=== PATIENT | female | born 1965 | race Caucasian/White ===

== ENCOUNTER 2016-07-02 11:00 | Inpatient (IN) | payer OTHER ==
[~2016-07-02] VITALS: Ht 172.7 cm; Wt 74.8 kg
[~2016-07-02 11:00] MED LIST: CLEOCIN HCL300 MG PO; DELTASONE20 MG PO; GUAIFENESIN-COD10 ML PO; HYDROCODONE/ACE1 TA1 PO; PROVENTIL HFA6.7 GM INH; VICODIN 300 MG-1 TAB PO; ZITHROMAX Z-PA250 M1 PO; ZITHROMAX250 M2 PO
--- NOTE | 2016-07-02 11:21 | NUR ---
C/I SOB WITH COUGH, CHEST TIGHTNESS X 2 DAYS. O2 SAT 90% IN TRIAGE. EKG DONE OAN ARRIVAL. 1 PACK PER DAY SMOKER.
--- NOTE | 2016-07-02 11:23 | ED CARDIAC/CP/PALPITATIONS ---
See Addendum History of Present Illness General Chief Complaint: Dyspnea (COPD, CHF, Other) Stated Complaint: SOB HX OF ASTHMA Source: patient Exam Limitations: no limitations Reconcile Medications Albuterol Sulfate (Proventil Hfa) 6.7 GM HFA.AER.AD 1-2 PUFF INH Q6P PRN SOB Azithromycin (Zithromax) 250 MG TABLET 1 DP PO AD BRONCHITIS 2 the first day followed by 1 for days 2-5 Azithromycin (Zithromax Z-Hermes) 250 MG CAP 1 DP PO AD DENTAL PAIN 2 the first day followed by 1 for days 2-5 HYDROCODONE/ACETAMINOPHEN (Hydrocodon-Acetaminophen 5-325) 1 EACH TABLET 1 TAB PO Q6HR PRN BREAKTHROUGH PAIN Prednisone (Deltasone) 20 MG TABLET 3 TAB PO DAILY BRONCHITIS Robitussin AC (Guaifenesin-Codeine Syrup) 10 ML LIQUID 5-10 ML PO Q6P PRN COUGH Triage Note: C/I SOB WITH COUGH, CHEST TIGHTNESS X 2 DAYS. O2 SAT 90% IN TRIAGE. EKG DONE OAN ARRIVAL. Triage Nurses Notes Reviewed? yes Onset: Gradual Duration: constant Timing: recent history Quality/Severity: severe Radiation: no radiation HPI: Patient is a 50-year-old female with a past medical history of asthma who is a current every day smoker who presents emergency room with a 2 to three-day history of worsening wheezing shortness of breath pruritic chest pain cough and generalized weakness and fatigue. Patient has taken many nebulizer treatments at home and inhalers at home with minimal relief of symptoms. Positive sick contacts at home. Denies any chest pain or pain jaw pain nausea vomiting leg swelling hemoptysis (KARLA ROMAN,SAPNA) Vital Signs & Intake/Output Vital Signs & Intake/Output Vital Signs Date Time Temp Pulse Resp B/P Pulse O2 O2 Flow FiO2 Ox Delivery Rate 07/02 1343 88 18 123/67 92 Nasal 2.0L Cannula 07/02 1343 88 Room Air 07/02 1225 89 07/02 1120 99.0 126 34 122/76 90 Room Air Allergies Coded Allergies: Penicillins (Intermediate, RASH 07/02/16) (JIMENA LOZANO,JOCELYNE Moeller) Past History Travel History Traveled to [place] past 21 day No Medical History Any Pertinent Medical History? 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 No (SAPNA SALGADO) Review of Systems Review of Systems Constitutional: Reports: see HPI. EENTM: Reports: no symptoms. Respiratory: Reports: see HPI, cough, short of breath. Cardiovascular: Reports: no symptoms. GI: Reports: no symptoms. Genitourinary: Reports: no symptoms. Musculoskeletal: Reports: no symptoms. Skin: Reports: no symptoms. Neurological/Psychological: Reports: no symptoms. Hematologic/Endocrine: Reports: no symptoms. Immunologic/Allergic: Reports: no symptoms. All Other Systems: Reviewed and Negative (SAPNA SALGADO) Physical Exam Physical Exam General Appearance: no apparent distress, alert, comfortable Cardiovascular: tachycardia Comments: Well-developed well-nourished person in no acute distress HEENT: Normal EENT exam, extraocular motion intact, no nystagmus. Pupils equally round and reactive to light and accommodation. Nose is atraumatic. External auditory canal and Tympanic membranes clear. Pharynx normal. No swelling or edema. Neck: Supple, no lymphadenopathy, normal range of motion without pain or tenderness Back: Nontender, no CVA tenderness. Cardiovascular: Regular rate and rhythms no murmurs rubs or gallops, normal JVP Respiratory: Chest nontender. No respiratory distress. Bilateral wheezing noted Abdomen: Soft, nontender nondistended, no appreciable organomegaly. Normal bowel sounds. No ascites Extremity: No edema, no calf tenderness to palpation, normal and equal pulses. Neuro: Alert oriented x3, motor sensory normal, Skin: No appreciable rash on exposed skin, skin is warm and dry. Psych: Mood and affect is normal, memory and judgment is normal. Core Measures ACS in differential dx? No Severe Sepsis Present: No Septic Shock Present: No (SAPNA SALGADO) Progress Differential Diagnosis: AMI, aortic dissection, atrial fibrillation, cholecystitis, CHF/pulm edema, costochondritis, hyperkalemia, hypovolemia, hyperthyroid, hyperventilation, intracranial hemorrhage, musculoskeletal pain, myocarditis, pancreatitis, pericarditis, pneumonia, pneumothorax, PSVT, pulmonary embolism, PUD/GERD, PVCs/PACs, respiratory failure, rib fracture, sepsis, unstable angina, V-fib/V-Tach, WPW syndrome Diagnostic Imaging: Viewed by Me: Radiology Read. CXR Impression: SEE COMMENTS Initial ED EKG: SINUS TACHYCARDIA [address] DEPRESSIONS NOTED IN v3 AND v4 v5 v6 Comments: PATIENT: MEAGHAN VELASQUEZ PRESENT AGE: 50 PATIENT ACCOUNT NO: [id number] : 65 LOCATION: [facility] ORDERING PHYSICIAN: SAPNA ROMAN SERVICE DATE: 07/02/16-113 EXAM TYPE: RAD - XRY-CHEST XRAY, PA AND LATERAL EXAMINATION: XR CHEST CLINICAL INFORMATION: Cough and wheeze COMPARISON: 11/20/2015 TECHNIQUE: PA and lateral views of the chest were obtained. FINDINGS: The lungs are well expanded. Bronchial wall thickening is present. There is no focal consolidation, edema, or effusion. No pneumothorax. The cardiomediastinal silhouette is within normal limits. No acute osseous abnormality. IMPRESSION: No dense consolidation. Bronchial wall thickening can be seen with a small airways process such as asthma or atypical/viral infection. (KARLA ROMAN,SAPNA) Plan of Care: Orders Procedure Date/time Status AEROSOL (GEN) 07/02 1225 Complete Telemetry/Oncology Social Work 07/02 1126 Active THYROID STIMULATING HORMONE 07/02 1126 Complete TROPONIN LEVEL 07/02 1126 Complete MAGNESIUM 07/02 1126 Complete HUMAN BETA HCG SCREEN 07/02 1126 Complete FREE T4 07/02 1126 Complete D-DIMER 07/02 1126 Complete COMPREHENSIVE METABOLIC PANEL 07/02 1126 Complete CBC WITHOUT DIFFERENTIAL 07/02 112 Complete EKG 07/02 1102 Active Laboratory Tests 07/02/16 1138: Total Beta HCG Cancelled 07/02/16 1126: Anion Gap 17 H, Estimated GFR > 60, BUN/Creatinine Ratio 8.9, Glucose 118 H, Calcium 9.6, Magnesium 2.0, Total Bilirubin 0.8, AST 21, ALT 40, Alkaline Phosphatase 98, Troponin I < 0.01, Total Protein 7.9, Albumin 4.6, Globulin 3.3, Albumin/Globulin Ratio 1.4, TSH 1.100, Free T4 1.11, Total Beta HCG NEGATIVE, D- Dimer < 200, CBC w Diff NO MAN DIFF REQ, RBC 5.74 H, MCV 87.1, MCH 29.2, RDW 13.8, MPV 8.8, Gran % 74.6, Lymphocytes % 10.2 L, Monocytes % 11.8 H, Eosinophils % 1.8, Basophils % 1.6, Absolute Granulocytes 7.0 H, Absolute Lymphocytes 1.0 L, Absolute Monocytes 1.1 H, Absolute Eosinophils 0.2, Absolute Basophils 0.2, PUBS MCHC 33.6 Upon initial examination patient was in no respiratory distress however patient has significant bilateral wheezing on exam. Patient received nebulized treatment at home and inhaler treatments at home with minimal relief of symptoms. Patient was immediately administered IV Solu-Medrol, IV negative serum and multiple nebulizer treatments with no relief of wheezing patient at rest in bed was noted to be 88% room air. Patient was given supplemental nasal cannula oxygenation which improved her saturation to 94%. Patient had negative d-dimer essentially ruling out pulmonary embolism chest x-ray confirmed concerns of reactive airway disease. Troponin negative. At this time I am concerned of patient's unresolved symptoms and significant wheezing with above medications and advised patient to be admitted. Discussed admission with Dr. Narayan who is aware of admission for telemetry (SAPNA SALGADO) Departure Departure Disposition: STILL A PATIENT Condition: Stable Clinical Impression Primary Impression: Asthma Secondary Impressions: ST segment depression Referrals: UNKNOWN (PCP/Family) Departure Forms: Customer Survey General Discharge Information Admission Note Spoke With: PANCHITO LOZANO,SHITAL Documentation of Exam: Documentation of any treatments & extenuating circumstances including Concerns Regarding Discharge (functional status, medication knowledge or non-compliance, living conditions, etc.) that warrant an admission rather than observation: [ Discussed patient with Dr. FLANAGAN who agrees with telemetry admission for concerns of ST depression pleuritic chest pain and no relief of asthma and wheezing with medications administered in the emergency room. Patient at rest had a oxygen saturation of 88%. Patient will require repeat labs, IV Solu- Medrol, repeat nebulizer treatments and cardiology consultation. Outpatient treatment at this time would be medically harmful.] (SAPNA SALGADO) PA/TRIAL CONSULTANT Co-Sign Statement Statement: ED Attending supervision documentation- [x] I saw and evaluated the patient. I have also reviewed all the pertinent lab results and diagnostic results. I agree with the findings and the plan of care as documented in the PA's/TRIAL CONSULTANT's documentation. [] I have reviewed the ED Record and agree with the PA's/TRIAL CONSULTANT's documentation. [] Additions or exceptions (if any) to the PAs/TRIAL CONSULTANT's note and plan are summarized below: [] (JIMENA LOZANO,JOCELYNE Moeller) Critical Care Note Critical Care Note Critical Care Time: 30-74 min (SAPNA SALGADO)
--- NOTE | 2016-07-02 11:29 | NUR ---
APPRECIATE TRIAGE NOTE. PT TO [facility] G. PA STUDENT TO BEDSIDE FOR EVAL.
[2016-07-02 11:45] LABS: ABSOLUTE BASOPHIL COUNT 0.2 /CUMM (0.0-0.2); ABSOLUTE EOSINOPHIL COUNT 0.2 /CUMM (0.0-0.7); ABSOLUTE MONOCYTE COUNT 1.1 /CUMM (0.10-0.60); BASOPHIL % 1.6 % (0.0-2.0); EOSINOPHIL % 1.8 % (0-5); GRANULOCYTE % 74.6 % (42.2-75.2); MEAN CORPUSCULAR HGB 29.2 PG (27.0-31.0); MEAN CORPUSCULAR HGB CONC 33.6 G/DL (33.0-37.0); MEAN CORPUSCULAR VOLUME 87.1 FL (81.0-99.0); MEAN PLATELET VOLUME 8.8 FL (7.4-10.4); PLATELET COUNT 258 /CUMM (130-400); RBC DISTRIBUTION WIDTH 13.8 % (11.5-14.5); RED BLOOD CELL CT 5.74 /CUMM (4.20-5.40); WHITE BLOOD CELL COUNT 9.4 /CUMM (4.8-10.8)
--- NOTE | 2016-07-02 11:50 | NUR ---
ABEL ACOSTA TO BEDSIDE FOR EVAL.
--- NOTE | 2016-07-02 11:57 | NUR ---
PT TO RADIOLOGY FOR X-RAY AT THIS TIME.
--- NOTE | 2016-07-02 12:14 | RADIOLOGY REPORT ---
EXAMINATION: XR CHEST CLINICAL INFORMATION: Cough and wheeze COMPARISON: 11/20/2015 TECHNIQUE: PA and lateral views of the chest were obtained. FINDINGS: The lungs are well expanded. Bronchial wall thickening is present. There is no focal consolidation, edema, or effusion. No pneumothorax. The cardiomediastinal silhouette is within normal limits. No acute osseous abnormality. IMPRESSION: No dense consolidation. Bronchial wall thickening can be seen with a small airways process such as asthma or atypical/viral infection.
--- NOTE | 2016-07-02 12:30 | NUR ---
20G IV PLACED IN RIGHT WRIST. FLUSHED PER PROTOCOL. NO SWELLING, REDNESS, PAIN, OR BLEEDING PRESENT. NS BOLUS INFUSING, MAG SULFATE INFUSING ON PUMP, AND SOLUMEDROL ADMINISTERED PER EMAR. PT. TOLERATED PROCEDURE WELL. RESPIRATORY THERAPIST AT BEDSIDE TO DO TREATMENT. NO ACUTE DISTRESS NOTED AT THIS TIME. WILL CONTINUE TO MONITOR.
--- NOTE | 2016-07-02 12:36 | NUR ---
RESPIRATORY TO BEDSIDE FOR DUONEB AT THIS TIME.
--- NOTE | 2016-07-02 13:13 | NUR ---
PT AMBULATORY TO BATHROOM PT NOTED GET SOB QUICKLY. PT IN TRIPOD POSITION ON STRETCHER USING PURSED LIP BREATHING. LUNS SOUNDS NOTED TO BE COURSE WITH EXPIRATORY WHEEZE. ABEL ACOSTA TO BEDSIDE TO DISCUSS POC WITH PT.
--- NOTE | 2016-07-02 13:30 | NUR ---
PT MOVED TO ROOM 19 FOR OXYGEN SUPPLEMENTATION. PT PLACED ON 2L NC FOR 02 SAT 88% ON RA. PT IMPROVED TO 94% WITH NC 2L.
--- NOTE | 2016-07-02 13:52 | History & Physical ---
KARLEE LOZANO,REGINA 07/02/16 1351: General Information and HPI MD Statement: I have seen and personally examined MEAGHAN VELASQUEZ and documented this H&P. The patient is a 50 year old F who presented with cough and shortness of breath. Source of Information: patient Exam Limitations: no limitations History of Present Illness: 50 yo F with pmh of asthma and nicotine dependence (current heavy smoker 41-pack -year history), came into the emergency department with complaints of productive cough, shortness of breath. According to patient she was in her usual state of health 2 weeks ago, when she started having achiness and generalized muscle and joint pain, and later started having congestion, and cough, productive with yellowish sputum (half a cup), associated with shortness of breath. The symptoms have worsened significantly requiring her to show up in the emergency department. She also mentioned that she used to have similar episodes at least twice a year but never required hospitalization. She admitted to having pain deep breathing, and upon swallowing. She denies chest pain, palpitation, fever, chills, night sweats, headache, nasal discharge, ear discharge, ear pain, and abdomen, burning urination, change in bowel or bladder habit, leg swelling. She also denied any recent travel or any sick contacts. She mentioned that she has a pet parrot in her home. 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 She does not have a PCP or webbing supervisor to follow. Allergies/Medications Allergies: Coded Allergies: Penicillins (Intermediate, RASH 07/02/16) Home Med list Albuterol Sulfate (Proventil Hfa) 6.7 GM HFA.AER.AD 1-2 PUFF INH Q6P PRN SOB Olanzapine 10 MG TABLET 1 TAB PO QPM DEPRESSION (Reported) Past History Travel History Traveled to [place] past 21 day No Medical History Neurological: NONE EENT: NONE Cardiovascular: NONE Respiratory: asthma Gastrointestinal: NONE Hepatic: NONE Renal: NONE Musculoskeletal: NONE Psychiatric: NONE Endocrine: NONE Blood Disorders: NONE Cancer(s): NONE AGENT BROKER/Reproductive: NONE Surgical History Surgical History: non-contributory Past Family/Social History Psychosocial History Where do you live? Home Who Do You Live With? spouse Primary Language: South African Smoking Status: Current Everyday Smoker ETOH Use: quit 15 yrs ago Illicit Drug Use: denies illicit drug use Functional Ability ADLs Independent: dressing, eating, toileting, bathing. Ambulation: independent IADLs Independent: shopping, housework, finances, food prep, telephone, transportation , medication admin. Review of Systems Review of Systems Constitutional: Reports: see HPI, malaise, weakness. Denies: chills, diaphoresis, fever, unexplained weight loss. EENTM: Reports: no symptoms, throat pain. Cardiovascular: Reports: chest pain (on deep breathing). Denies: edema, palpitations, peripheral edema, syncope. Respiratory: Reports: cough, orthopnea, short of breath, sputum production. Denies: hemoptysis, stridor, wheezing. GI: Reports: no symptoms. Genitourinary: Reports: no symptoms. Musculoskeletal: Reports: see HPI, back pain, joint pain, muscle pain. Skin: Reports: no symptoms. Neurological/Psychological: Reports: no symptoms. Hematologic/Endocrine: Reports: no symptoms. All Other Systems: Reviewed and Negative Post Menopausal: Yes Exam & Diagnostic Data Last 24 Hrs of Vital Signs/I&O Vital Signs Date Time Temp Pulse Resp B/P Pulse O2 O2 Flow FiO2 Ox Delivery Rate 07/02 1343 88 18 123/67 92 Nasal 2.0L Cannula 07/02 1343 88 Room Air 07/02 1225 89 07/02 1120 99.0 126 34 122/76 90 Room Air Intake & Output 07/02 1600 07/02 0800 07/02 0000 Intake Total 1100 Output Total Balance 1100 Intake, IV 1100 Patient 74.843 kg Weight Last 24 Hrs of Labs/Kameron: Laboratory Tests 07/02/16 1138: Total Beta HCG Cancelled 07/02/16 1126: Anion Gap 17 H, Estimated GFR > 60, BUN/Creatinine Ratio 8.9, Glucose 118 H, Calcium 9.6, Magnesium 2.0, Total Bilirubin 0.8, AST 21, ALT 40, Alkaline Phosphatase 98, Troponin I < 0.01, Total Protein 7.9, Albumin 4.6, Globulin 3.3, Albumin/Globulin Ratio 1.4, TSH 1.100, Free T4 1.11, Total Beta HCG NEGATIVE, D- Dimer < 200, CBC w Diff NO MAN DIFF REQ, RBC 5.74 H, MCV 87.1, MCH 29.2, RDW 13.8, MPV 8.8, Gran % 74.6, Lymphocytes % 10.2 L, Monocytes % 11.8 H, Eosinophils % 1.8, Basophils % 1.6, Absolute Granulocytes 7.0 H, Absolute Lymphocytes 1.0 L, Absolute Monocytes 1.1 H, Absolute Eosinophils 0.2, Absolute Basophils 0.2, PUBS MCHC 33.6 Microbiology 07/02 1439 LOWER RESP: Respiratory Culture - COLB 07/02 1438 LOWER RESP: Gram Stain - COLB Diagnostic Data EKG Results Sinus tachycardia with rate 108, ST depression seen at V3 V4 V5 not sure whether this is new or old. No previous EKGs to compare to. Of note, she has slurring of QRS complex towards the end in leads II, III, aVF. 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 (But delta waves can come and go in WPW syndrome depending on other factors too.) CXR Results Chest x-ray shows right a similar obesity and right apex density, system of either developing pneumonia or atelectasis. Also pneumothorax could not be ruled out according to the report. Other Results Physical examnination: General: well nourished patient in mild distress Head: Normocephalic, atraumatic Eyes: Pupils normal in size, regular, reacting to light and accommodation, EOM normal Ears: B/l normal on inspection Nose: Congested on inspection Throat/mouth: Moist mucosa Neck: Supple, full range of motion, no thyromegaly Heart: Regular rate, regular rhythm Lung: Bilateral expiratory wheezes, no crackles, has additional oxygen being delivered by nasal cannula Abd: Soft, non-tender, no distention appreciated Back: Normal range of motion Extremities: Normal knee exam bilaterally, pedal edema, Distal neurovascular intact Neurologic: Alert, oriented x3, Cranial exam grossly intact, Speech is clear and coherent Skin: Warm and dry Psychiatric: Calm, cooperative, coherant Assessment/Plan Assessment: 50 yo F with pmh of asthma and nicotine dependence (current heavy smoker 41-pack -year history), came into the emergency department with complaints of productive cough, shortness of breath. She is currently being evaluated and managed in the telemetry floor for the following issues: #Acute hypoxic respiratory failure, probably secondary to acute on chronic bronchitis The patient gives a typical history of a prodormal symptoms with maybe a possible viral infection which seems to be later progressing towards bronchitis. With cough, increased sputum production, the diagnosis points towards acute bronchitis. However, shortness of breath component is also there which hints towards pulmonary process, likely acute exacerbation of undiagnosed COPD. -Continue supplemental oxygen via nasal cannula to maintain oxygen saturation above 92% -IV antibiotics to cover bronchitis -IV steroids, total respiratory care with nebulization, for the respiratory symptoms -Currently, she does not fit the clinical definition of chronic bronchitis, but will however need pulmonary evaluation and lung function test as an outpatient to diagnose or rule out COPD -Since she mentioned that she has a pet parrot, psittacosis is also in one of the differential diagnosis currently -Follow-up blood cultures and sputum cultures -Follow-up in rapid influenza test, urine Legionella and Streptococcus test -Can consider pulmonary consultation if patient's symptoms does not improve despite current treatment plan #History of asthma Currently, the symptoms that she describes fits more to chronic bronchitis, versus asthma. She never has had already function test to differentiate among these two. She takes Proventil every day (even if she does not have any symptoms) and says that she has not had any asthma attacks during the overnight for a long period of time. -Currently being managed as outlined above -Needs an outpatient pulmonary consultation and a pulmonary function test #? History of Tjdlq-Pbahkqfuu-Zjpfr syndrome Patient mentioned that she has history of Cgvof-Pqdoumcgi-Yxamt syndrome, which was diagnosed 20 years ago, but has not had any ablative procedures, as he does not have any webbing supervisor or PCP. (She visits [facility] as care for her mental health issues). -PLEASE DO NOT GIVE ANY AV-VENTURA BLOCKING AGENT, EVEN IF TACHYCARDIAC, due to WPW SYNDROME. #Depression -Continue taking home medication Zyprexa #Nicotine dependence -Patient will require a nicotine patch. Smoking seizures and counseling should be done in the morning. #Diet: Regular diet #Lovenox for DVT prophylaxis #CODE STATUS: Full code As Ranked By This Provider Problem List: 1. Bronchitis 2. Asthma 3. Depression 4. Nicotine dependence Core Measures/Miscellaneous Acute Coronary Syndrome ACS Diagnosis: No Cerebrovascular Accident CVA/TIA Diagnosis: No Congestive Heart Failure CHF Diagnosis: No Venous Thromboembolism VTE Risk Factors: Age > 40, Smoking VTE Prophylaxis Ordered Inpt: Pharm- Lovenox No Mech VTE prophylaxis d/t: No contraindications No VTE Pharm Prophylaxis d/t: No contraindications VTE Diagnosis: No VTE Type: NONE VTE Confirmed by (Test): NONE Severe Sepsis Severe Sepsis Present: No Septic Shock Septic Shock Present: No Miscellaneous Documentation Attending Case Discussed With: NIR LOZANO,TAI Butler Primary Care Physician: UNKNOWN Patient sees these Specialists Internal medicine Level of Patient Care: Telemetry REMBERTO MA MD 07/02/16 1540: Resident Review Statement Resident Statement: examined this patient, discussed with senior internal auditor, agreed with senior internal auditor, discussed with family, reviewed EMR data (avail) Other Findings: 50-year-old female with past medical history of asthma, depression, current smoker presents to the ED with complaints of 2-3 days of worsening shortness of breath and productive cough with generalized weakness and fatigue. Patient reports her symptoms started with body pains about 5 days ago eventually developed cough. She was producing copious amount of yellow phlegm. Denies fever, chills, sick contacts . Never had a flu shot or pneumonia shot the past. Patient has a [employer] pet parrot for over 35 years. She has it inside her house and she primarily cleans the cage. Vitals and admission blood pressure 122/76, respiration 34, pulse 126, temperature 99.0, oxygen saturation 90% on room air. On examination patient alert awake oriented, comfortable HEENT: Pupils equal and reactive, no erythema noted on the posterior pharyngeal wall. Cardio vascular: S1, S2 regular no murmurs Respiratory: Bilateral inspiratory and expiratory wheezing present Abdomen: Soft, nontender Extremities: No pedal edema Labs an admission WBC 9.4, H&H 16.8 and 50.0, platelet 258, sodium 141, edition 4.0, BUN 8, creatinine 0.9, troponins less than 0.01 X-ray showed bronchial wall thickening EKG showed sinus tachycardia with diffuse ST segment depression Assessment and plan 1. Acute hypoxic respiratory failure most likely due to undiagnosed COPD exacerbation. We'll start her on IV Solu-Medrol and azithromycin. No evidence of infection at this time. We'll keep her on NovoLog sliding scale she is on steroids. Will hold off on antibiotics pending sputum culture. TRC nebulizes. She does not fit the criteria for low-dose CT scan as she is less than 65. But she will need an outpatient lung function test and a pulmonary referral for further follow-up on her COPD. She will also been need to be started on steroids/laba, albuterol inhalers and as well as nebulizes. If her symptoms does not improve Psitacosis should be considered given her exposure to birds. 2. Shortness of breath on mild exertion: Patient does not have a history of coronary disease but she has risk factors including smoking. 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 She has been asymptomatic since then and has never seen a webbing supervisor. We will obtain an echocardiogram and obtain a nonemergent cardiology consult in a.m. Avoid AV ventura blocking agents given the history of WPW syndrome 3. Depression: We will continue her Zyprexa 4. Smoker: We'll start a nicotine patch. Will need reinforcement of smoking cessation. Full CODE STATUS DVT prophylaxis Lovenox regular diet NIR LOZANO,TAI 07/02/16 1644: Attending MD Review Statement Attending Statement Attending MD Statement: examined this patient, discuss w/resident/PA/EMPLOYEE'S REPRESENTATIVE, agreed w/resident/PA/EMPLOYEE'S REPRESENTATIVE, reviewed EMR data (avail), discussed with nursing Attending Assessment/Plan: 50-year-old female with past medical history of childhood asthma managed on Proventil inhaler alone. Doesn't have a proper PCP and get some medical care from [facility]. Also tobacco use since bufferer. She is here with what appears to be an acute asthma/COPD exacerbation. She is wheezing and coughing. I believe because of the long-standing history of tobacco that this is COPD. We 'll treat her with IV steroids, short course of by mouth antibiotics for bacterial bronchitis, TRC with nebs and inhaled bronchodilators. She has a history of WPW with some nonspecific ST depression on her EKG. Her initial troponin is negative. We'll get an echocardiogram, cardiology eval, follow repeat troponins and avoid all AV ventura blocking drugs for now. DVT prophylaxis. Gentle hydration for mild anion gap acidosis and follow-up.
--- NOTE | 2016-07-02 15:10 | NUR ---
FOOD TRAY ORDERED
[2016-07-02] MEDS ORDERED: OLANZAPINE10 M1 PO (15:33)
--- NOTE | 2016-07-02 15:49 | NUR ---
REPORT GIVEN TO MARGO OLMSTEAD.
--- NOTE | 2016-07-02 17:47 | NUR ---
NURSING NOTE ADMINISTERED IV ZITHRO. PT IS GETTING HUNGRY AND IS AWAITING DINNER.
--- NOTE | 2016-07-02 20:08 | NUR ---
RESP THERAPIST PAGED FOR JAY
[2016-07-02 22:17] VITALS: BP 114/61
--- NOTE | 2016-07-02 23:01 | NUR ---
PT ALERT AND ORIENTED X 3. POX- 93 ON 5 L. EXPIRATORY WHEEZES THROUGHOUT. TRCS ORDERED. VSS OTHERWISE. NO C/O PAIN.
--- NOTE | 2016-07-02 23:16 | NUR ---
PT MEDICATED W/ GAUFENISIN ORDERED.
--- NOTE | 2016-07-03 03:54 | NUR ---
OCCASIONALLY COUGHING IN SLEEP NO DISTRESS O2 SAT REMAINS WNL MONITOR SINUS
[2016-07-03 05:30] LABS: ABSOLUTE BASOPHIL COUNT 0 /CUMM (0.0-0.2); ABSOLUTE EOSINOPHIL COUNT 0 /CUMM (0.0-0.7); ABSOLUTE LYMPH COUNT 0.8 /CUMM (1.2-3.4); ABSOLUTE MONOCYTE COUNT 0.2 /CUMM (0.10-0.60); BASOPHIL % 0.7 % (0.0-2.0); EOSINOPHIL % 0.1 % (0-5); GRANULOCYTE % 85.7 % (42.2-75.2); MEAN CORPUSCULAR HGB 29.2 PG (27.0-31.0); MEAN CORPUSCULAR HGB CONC 33.5 G/DL (33.0-37.0); MEAN CORPUSCULAR VOLUME 87.3 FL (81.0-99.0); MEAN PLATELET VOLUME 9.2 FL (7.4-10.4); PLATELET COUNT 241 /CUMM (130-400); RBC DISTRIBUTION WIDTH 13.8 % (11.5-14.5); RED BLOOD CELL CT 4.93 /CUMM (4.20-5.40)
[2016-07-03 06:16] VITALS: BP 121/58
--- NOTE | 2016-07-03 07:14 | PN- Housestaff ---
NISHA FRANCO 07/03/16 0714: Subjective Follow-up For: 1. Possible COPD exacerbation 2. Acute hypoxic respiratory failure 3. Diabetes mellitus 4. EKG changes-diffuse ST depressions Complaints: pain scale (0-10) Tele-Events Since Last Visit: ST depressions Subjective: Patient was seen and examined this morning. She is alert, awake and oriented to time place and person. Overnight she desaturated and her oxygen requirement went up to 5 L from 2 L. She is having shortness of breath on exertion, cough, white colored sputum production. Associated with very bad wheezing. Denied any fever, chills. She denied any chest pain this morning. Denied racing of heart, hemoptysis, headache, dizziness or lightheadedness. Denied nausea, vomiting, abdominal pain, change in bladder or bowel habits. Vitals were stable, heart rate 86, respiratory rate 20, blood pressure 120/58, saturating at 99% on 3 L oxygen this morning. Review of Systems Constitutional: Denies: see HPI. Objective Last 24 Hrs of Vital Signs/I&O Vital Signs Date Time Temp Pulse Resp B/P Pulse O2 O2 Flow FiO2 Ox Delivery Rate 07/03 1304 93 Nasal 2.0L Cannula 07/03 0820 96 Nasal 2.0L Cannula 07/03 0616 96.8 86 20 121/58 99 Nasal 4.0L Cannula 07/03 0029 93 Nasal 5.0L Cannula 07/02 2217 97.9 90 22 114/61 94 Nasal 4.0L Cannula 07/02 2022 96 20 91 Nasal 4.0L Cannula 07/02 2003 99.0 95 18 125/65 92 Room Air 07/02 193 Nasal 2.0L Cannula 07/02 1920 Nasal 2.0L Cannula 07/02 1753 102 18 123/63 90 Nasal 2.0L Cannula Intake & Output 07/03 1600 07/03 0800 07/03 0000 Intake Total 420 Output Total Balance 420 Intake, IV 300 Intake, Oral 120 Patient 74.843 kg Weight Physical Exam General Appearance: Alert, Oriented X3, Cooperative, No Acute Distress Skin: No Rashes, No Breakdown HEENT: Atraumatic, Mucous Membr. moist/pink Neck: Supple, No JVD Lymphatic: Cervical nl Cardiovascular: Normal S1, Normal S2, No Murmurs Lungs: decreased air entry and wheezing Abdomen: Normal Bowel Sounds, Soft, No Tenderness Extremities: No Clubbing, No Cyanosis, No Edema Vascular: Normal Pulses Current Medications: Current Medications Sig/Rosalina Start time Last Medication Dose Route Stop Time Status Admin Acetaminophen 650 MG Q6P PRN 07/02 1545 AC 07/03 PO 0430 Albuterol Sulfate 3 ML EVERY 4 HRS/AWAKE 07/02 1999 AC 07/03 INH 1304 Azithromycin 250 MG DAILY 07/03 1000 AC 07/03 PO 1002 Azithromycin 500 MG DAILY 07/02 1439 DC 07/02 Sodium Chloride 250 ML IV 1642 Benzonatate 100 MG TID 07/02 1600 AC 07/03 PO 1002 Enoxaparin Sodium 40 MG DAILY 07/02 143 AC 07/03 SC 1002 Guaifenesin 0 .STK-MED ONE 07/03 113 DC PO Guaifenesin 0 .STK-MED ONE 07/03 1133 DC PO Guaifenesin 0 .STK-MED ONE 07/03 0521 DC PO Guaifenesin/ 10 ML Q6P PRN 07/02 2315 AC 07/03 Dextromethorphan PO 0524 Insulin Aspart 0 TIDAC 07/02 1700 AC SC Ipratropium [place] 2.5 ML EVERY 4 HRS/AWAKE 07/02 1999 AC 07/03 INH 1304 Magnesium Sulfate 1 GM ONCE ONE 07/02 1200 DC 07/02 Dextrose/Water 100 ML IV 07/02 1559 1229 Melatonin 5 MG AT BEDTIME 07/02 2199 AC 07/02 PO 2204 Methylprednisolone 0 .STK-MED ONE 07/03 0521 DC .ROUTE Methylprednisolone 40 MG Q8 07/02 2199 07/03 IV 1309 Morphine Sulfate 2 MG Q8P PRN 07/02 1545 AC IV Nicotine 21 MG DAILY 07/02 1445 AC 07/03 TOP 1002 Olanzapine 10 MG QPM 07/02 2199 AC 07/02 PO 2204 Oxycodone/ 2 TAB Q8P PRN 07/02 1545 AC Acetaminophen PO Sodium Chloride 1,000 ML Q13H 07/02 1600 DC 07/02 IV 07/03 0459 1642 Last 24 Hrs of Lab/Kameron Results Last 24 Hrs of Labs/Mics: Laboratory Tests 07/03/16 0510: Anion Gap 14, Estimated GFR > 60, BUN/Creatinine Ratio 16.7, CBC w Diff MAN DIFF ORDERED, RBC 4.93, MCV 87.3, MCH 29.2, RDW 13.8, MPV 9.2, Gran % 85.7 H, Lymphocytes % 11.3 L, Monocytes % 2.2, Eosinophils % 0.1, Basophils % 0.7, Absolute Granulocytes 6.0, Segmented Neutrophils 83 H, Band Neutrophils 3, Absolute Lymphocytes 0.8 L, Lymphocytes 11 L, Monocytes 3, Absolute Monocytes 0.2, Absolute Eosinophils 0, Absolute Basophils 0, Platelet Estimate ADEQUATE, Normocytic RBCs VERIFIED, Normochromic RBCs VERIFIED, PUBS MCHC 33.5, Fld Total RBCs Counted 100 07/03/16 0003: Troponin I < 0.01 07/02/16 1749: Troponin I < 0.01 Assessment/Plan Assessment: This is a 50-year-old female with past medical history of asthma, 40 year smoking history, diabetes mellitus, WPW syndrome, depression presented to emergency department with chief complaint of shortness of breath on exertion, cough, green colored sputum production, chest tightness, wheezing, pleuritic chest pain for 3 days. Also had generalized weakness and fatigue. Vitals on admission-afebrile, tachycardic 126, respiratory rate 34, blood pressure 120/60, saturating at 92% on room air. Pertinent labs on admission CBC normal, BEP normal, LFTs normal, thyroid function tests normal. Troponin negative. EKG showed sinus tachycardia rate 108, ST depressions diffuse in V3, V4, V5, V6. Chest x-ray showed bronchial wall thickening with small airway process suggestive of asthma. Problem list 1. Possible COPD exacerbation 2. Acute hypoxic respiratory failure 3. Diabetes mellitus 4. EKG changes-diffuse ST depressions Possible COPD exacerbation Patient presented with worsening shortness of breath, cough, sputum production green color, chest tightness, worsening of wheezing. Of note she is a smoker for 40 years- 1 pack per day. Chest x-ray showed bronchial wall thickening suggestive of asthma. * Admitted to telemetry floor for further monitoring * Possible COPD exacerbation versus asthma exacerbation * Maintain oxygen saturation above 92% * Monitor vitals every shift * Provide supplemental oxygen if necessary * Methylprednisone 40 every 8 hours * Oral azithromycin 250 mg * Continue inhalers albuterol * Follow-up sputum cultures, blood cultures * Lab urine Legionella and streptococcal antigen * Total respiratory care Acute hypoxic respiratory failure Patient presented with worsening shortness of breath on exertion. Tachycardic and tachypneic on admission. Requiring oxygen through nasal cannula. Of note patient is not on oxygen at home. POSSIBLY from COPD exacerbation versus asthma exacerbation versus acute bronchitis * Provide supplemental oxygen * Maintain oxygen saturation ABOVE 92% * Total respiratory care * Last night she desaturated and her oxygen requirements went up to 5 L from 2 L. History of asthma Currently, the symptoms that she describes fits more to COPD versus asthma. She never had pulmonary function test to differentiate among these two. She takes Proventil every day (even if she does not have any symptoms) and says that she has not had any asthma attacks for a long period of time. * Currently being managed as outlined above * Needs an outpatient pulmonary consultation and pulmonary function tests. History of Gufxm-Xnhjkprrb-Tcenj syndrome Patient mentioned that she has history of Yhdwl-Hgobjyxle-Fpcrs syndrome, which was diagnosed 20 years ago, but has not had any ablative procedures, as she does not have any electron microscopist or PCP. (She visits [facility] for her mental health issues). PLEASE DO NOT GIVE ANY AV-LEANDRA BLOCKING AGENT, EVEN IF TACHYCARDIAC, due to WPW SYNDROME. Depression -Continue home medication Zyprexa #Nicotine dependence -Patient now on nicotine patch. Smoking cessation counseling given. Diabetes mellitus Accu-Cheks NovoLog sliding scale Diffuse st depressions EKG showed sinus tachycardia, rate 108, ST depressions in V3, V4, V5, V6. Troponins were negative. Ruled out acute coronary syndrome Line And Frame Poler was consulted Patient is asymptomatic denied any chest pain, palpitations, sweating, diaphoresis. will obtain echocardiogram. #Diet: Regular diet Lovenox for DVT prophylaxis full code Problem List: 1. Nicotine dependence 2. ST segment depression 3. Asthma Pain Ratin Pain Location: none Pain Goal: Remain pain free Pain Plan: tylinol Tomorrow's Labs & Rationales: none NIR LOZANO,TAI 07/03/16 0954: Attending MD Review Statement Attending Statement Attending MD Statement: examined this patient, discuss w/resident/PA/UNDERWATER HUNTER, agreed w/resident/PA/UNDERWATER HUNTER, reviewed EMR data (avail), discussed with nursing, discussed with case mgmt Attending Assessment/Plan: Patient is still actively wheezing and short of breath. Overnight her O2 requirement went up a little bit. She is a 50-year-old female with active tobacco use and history of childhood asthma, probable COPD who pretreating is a COPD exacerbation with IV steroids and by mouth antibiotics. 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
--- NOTE | 2016-07-03 14:20 | PN- Student ---
Subjective Subjective: Source: Patient History of Present Illness: Ms. Woo is a 50 y/o Female patient that has a history of Asthma since childhood. She presented to the ER due to SOB and chest/back pain that started 3 days ago. She states that previous to that she was feeling "achy" around a week before she had the SOB episodes that made her seek medical advice. The patient has a productive cough and she describes the sputum to be yellow in color and estimates that she is coughing 1/2 a cup per day. On presentation she also describes to have throat soareness and to have pain in the chest everytime she coughes or moves. The patient stated that every year she presents this same symptom profile 1-2 times, however this is the first time she seeks medical attention due to the severity. The patient also reported that she has previously had walking pneumonia but stated that this feels worse than that. Ms. Woo mentioned to have a parrot as a pet and that it has been in the family for more than 10 years. The parrot lives inside her residence and she is thhe one that cleans the cage. She has been having trouble sleeping for the past 3 days because of the cough spells and mentioned to be tired and hungry. Allergies/Medications: Allergies -Penicillin (Develops rash) Current Medications -Olanzapine (Zyprexa) 10mg 1 tablet PO qPM Past Medical Hx: Travel History Patient denies any trips outside of the [facility]. Medical History Neurological- NONE Cardiovascular- Kimmie Parkinson White Syndrome Dx Respiratory- Asthma Gastrointestinal- NONE Hepatic- NONE Renal- NONE Psychiatric- NONE Endocrine- NONE Surgical History No surgeries Family History: FATHER Hypertension (Diseased) MOTHER Diabetes mellitus (Diseased) BROTHER Diabetes mellitus, Dialysis Patient Psychosocial History: Where do you live? Home Who Do You Live With? Services at Home: None Primary Language: Malian Smoking Status: Smokes 1 pack/day (41 pack year Hx) EtOH Use: Quit 15 years ago Illicit Drug Use: Denies any use of Illicit drugs Functional Ability: ADLs Independent: dressing, eating, toileting, bathing. Ambulation: independent IADLs Independent: shopping, housework, finances, food prep, telephone, transportation , medication admin. Review of Systems: General: Patient is in proper attire, alert and is on moderate respiratory distress. She denies any weigt loss, night sweats, chillls and fever. HEENT: Patient denies any visual changes or dizzines. Cardiovascular: Patient denies any palpitations. Respiratory: Refer to HPI. GI: No nausea, vomiting or constipation. Genitourinary: Patient denies any changes in urine color/dysuria. OBG/REFERRAL MANAGER: LPM- 2 years ago (patient experiences hot flashes sporadically at nights) Skin: No changes. Upper Limbs: NONE. Lower Limbs: NONE. MSK: Mild muscle weakness. Objective Objective: Vital Signs Date Time Temp Pulse Resp B/P Pulse O2 O2 Flow FiO2 Ox Delivery Rate 07/03 1304 93 Nasal 2.0L Cannula 07/03 0820 96 Nasal 2.0L Cannula Physical Examination: General: 50y/o F with moderate respiratory distress, afebrile and alert. HEENT: PERRLA, anicteric sclera. Neck: Not assessed Mouth: No signs of central cyanosis. Lungs: Expiratory wheezes were appreciated throughout the lungs. CV: S1, S2 sounds were heard; no murmurs were heard. GI: No palpable massess were felt on light/deep palpation. Genitourinary: Not assessed MSK: Not assessed Upper Extremities: No signs of peripheral cyanosis or finger clubbing. Nails have nicotinic stains. Lower Extremities: No signs of edema or changes in temperature. Neurological: Normal Speech. Additional Notes: No pertinent notes at the moment. Results Results: Laboratory Tests 07/03/16 0510: Anion Gap 14, Estimated GFR > 60, BUN/Creatinine Ratio 16.7, CBC w Diff MAN DIFF ORDERED, RBC 4.93, MCV 87.3, MCH 29.2, RDW 13.8, MPV 9.2, Gran % 85.7 H, Lymphocytes % 11.3 L, Monocytes % 2.2, Eosinophils % 0.1, Basophils % 0.7, Absolute Granulocytes 6.0, Segmented Neutrophils 83 H, Band Neutrophils 3, Absolute Lymphocytes 0.8 L, Lymphocytes 11 L, Monocytes 3, Absolute Monocytes 0.2, Absolute Eosinophils 0, Absolute Basophils 0, Platelet Estimate ADEQUATE, Normocytic RBCs VERIFIED, Normochromic RBCs VERIFIED, PUBS MCHC 33.5, Fld Total RBCs Counted 100 07/03/16 0003: Troponin I < 0.01 07/02/16 1749: Troponin I < 0.01 07/02/16 1138: Total Beta HCG Cancelled 07/02/16 1126: Anion Gap 17 H, Estimated GFR > 60, BUN/Creatinine Ratio 8.9, Glucose 118 H, Calcium 9.6, Magnesium 2.0, Total Bilirubin 0.8, AST 21, ALT 40, Alkaline Phosphatase 98, Troponin I < 0.01, Total Protein 7.9, Albumin 4.6, Globulin 3.3, Albumin/Globulin Ratio 1.4, TSH 1.100, Free T4 1.11, Total Beta HCG NEGATIVE, D- Dimer < 200, CBC w Diff NO MAN DIFF REQ, RBC 5.74 H, MCV 87.1, MCH 29.2, RDW 13.8, MPV 8.8, Gran % 74.6, Lymphocytes % 10.2 L, Monocytes % 11.8 H, Eosinophils % 1.8, Basophils % 1.6, Absolute Granulocytes 7.0 H, Absolute Lymphocytes 1.0 L, Absolute Monocytes 1.1 H, Absolute Eosinophils 0.2, Absolute Basophils 0.2, PUBS MCHC 33.6 Microbiology 07/02 1439 LOWER RESP: Respiratory Culture - CAN Cancelled: SPECIMEN NOT RECEIVED IN LABORATORY 07/02 1438 LOWER RESP: Gram Stain - CAN Cancelled: SPECIMEN NOT RECEIVED IN LABORATORY Assessment/Plan Assessment: Ms. Woo is a 50 y/o F with a history of Asthma since childhood. She has been a smoker since she was 9 years old and currently smokes 1 pack/day. She has productive cough and approximates to be coughing 1/2 a cup per day. The patient has wheezes on expiration that could be listened throughout the lungs. DDx: Based on the clinical presentation the following preliminary diagnosis could be given; Community-Acquired Pneumonia (Rationale: patient has productive cough that has persisted for days and it's worsening. CXR reflects findings associated with the Dx due to consolidation.) vs. Mycoplasma pneumonia (Rationales: CXR doesn't reveal patchy infiltrates and the patient goes SOB with mild exertion which is not consistent with a Dx of walking pneumonia) vs. Asthma exacerbation (Rationale: the symptoms have been persisting and worsening for days which is not diagnostic of an asthma attack). Problem List: 1) Shortness of Breath 2) Pulmonary Congestion 3) Chest tenderness Plan: - Start the patient on Azithromycin 500mg PO X 1/day. - Schedule a consult with the Mixing Engineer. - Administer Ramelteon (8mg PO) to sleep. - Order CBC to assess WBC's - Order sputum and blood cultures to obtain Microbiological Etiology.
--- NOTE | 2016-07-03 15:32 | NUR ---
PT HAS BED ASSIGNMENT 184-1
--- NOTE | 2016-07-03 15:43 | NUR ---
KASIA ARAGON FROM THE [facility] CALLED TO GET REPORT. RN TRANSPORTING PT, WILL CALL FLOOR TOI
--- NOTE | 2016-07-03 16:13 | Cons- Cardiology ---
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 The patient has not had recent primary care follow-up and has not seen a philosophy professor in many years. She tells me she was diagnosed with Wselw-Slvmuigzl-Pperz many years ago and possibly underwent an EP study but was told she did not need ablation. She denies any history of palpitations or syncope. She presents to with a chief complaint of a productive cough with clear and yellow sputum as well as some diffuse myalgias. She did note some shortness of breath but denied any chest pain. She denied subjective fever, chills, diaphoresis, headache, slurring of speech, diarrhea, orthopnea, paroxysmal nocturnal dyspnea, or increasing edema. Allergies/Medications Allergies: Coded Allergies: Penicillins (Intermediate, RASH 07/02/16) Home Med List: Albuterol Sulfate (Proventil Hfa) 6.7 GM HFA.AER.AD 1-2 PUFF INH Q6P PRN SOB Olanzapine 10 MG TABLET 1 TAB PO QPM DEPRESSION (Reported) Current Medications: Current Medications Sig/Rosalina Start time Last Medication Dose Route Stop Time Status Admin Acetaminophen 650 MG Q6P PRN 07/02 1545 AC 07/03 PO 0430 Albuterol Sulfate 3 ML EVERY 4 HRS/AWAKE 07/02 2000 AC 07/03 INH 1304 Azithromycin 250 MG DAILY 07/03 1000 AC 07/03 PO 1002 Azithromycin 500 MG DAILY 07/02 1439 DC 07/02 Sodium Chloride 250 ML IV 1642 Benzonatate 100 MG TID 07/02 1600 AC 07/03 PO 1002 Enoxaparin Sodium 40 MG DAILY 07/02 1436 AC 07/03 SC 1002 Guaifenesin 0 .STK-MED ONE 07/03 1135 DC PO Guaifenesin 0 .STK-MED ONE 07/03 1133 DC PO Guaifenesin 0 .STK-MED ONE 07/03 0521 DC PO Guaifenesin/ 10 ML Q6P PRN 07/02 2315 AC 07/03 Dextromethorphan PO 0524 Insulin Aspart 0 TIDAC 07/02 1700 AC SC Ipratropium [place] 2.5 ML EVERY 4 HRS/AWAKE 07/02 2000 AC 07/03 INH 1304 Melatonin 5 MG AT BEDTIME 07/02 2199 AC 07/02 PO 2204 Methylprednisolone 0 .STK-MED ONE 07/03 0521 DC .ROUTE Methylprednisolone 40 MG Q8 07/02 2200 AC 07/03 IV 1309 Morphine Sulfate 2 MG Q8P PRN 07/02 1545 AC IV Nicotine 21 MG DAILY 07/02 1445 AC 07/03 TOP 1002 Olanzapine 10 MG QPM 07/02 2200 AC 07/02 PO 2204 Oxycodone/ 2 TAB Q8P PRN 07/02 1545 AC Acetaminophen PO Sodium Chloride 1,000 ML Q13H 07/02 1600 DC 07/02 IV 07/03 0459 1642 Review of Systems Review of Systems: Review of systems as per HPI. The remainder of a 10 point review of systems was reviewed and was otherwise negative. Past History Travel History Traveled to [place] past 21 day No Medical History Neurological: NONE EENT: NONE Cardiovascular: NONE Respiratory: asthma Gastrointestinal: NONE Hepatic: NONE Renal: NONE Musculoskeletal: NONE Psychiatric: NONE Endocrine: NONE Blood Disorders: NONE Cancer(s): NONE TENDERIZER TENDER/Reproductive: NONE Surgical History Surgical History: non-contributory Psychosocial History Where Do You Live? Home Who Do You Live With? spouse Primary Language: French Smoking Status: Current Everyday Smoker ETOH Use: quit 15 yrs ago Illicit Drug Use: denies illicit drug use Functional Ability ADLs Independent: dressing, eating, toileting, bathing. Ambulation: independent IADLs Independent: shopping, housework, finances, food prep, telephone, transportation , medication admin. Exam & Diagnostic Data Vital Signs and I&O Vital Signs Date Time Temp Pulse Resp B/P Pulse O2 O2 Flow FiO2 Ox Delivery Rate 07/03 1556 Nasal Cannula 07/03 1304 93 Nasal 2.0L Cannula 07/03 08 96 Nasal 2.0L Cannula 07/03 08 91 Nasal 3.0L Cannula 07/03 615 96.8 86 20 121/58 99 Nasal 4.0L Cannula 07/03 0029 93 Nasal 5.0L Cannula 07/02 2216 97.9 90 22 114/61 94 Nasal 4.0L Cannula 07/02 2022 96 20 91 Nasal 4.0L Cannula 07/02 2003 99.0 95 18 125/65 92 Room Air 07/02 1932 Nasal 2.0L Cannula 07/02 1919 Nasal 2.0L Cannula 07/02 175 102 18 123/63 90 Nasal 2.0L Cannula Intake & Output 07/03 0800 07/03 0000 07/02 1600 07/02 0807/02 0000 Intake Total 650 960 531 1107 Output Total 500 250 600 Balance 150 -55 420 1250 Intake, IV 300 75 300 1250 Intake, Oral 350 120 120 600 Number 0 0 0 Bowel Movements Output, Urine 500 250 600 Patient 165 lb 165 lb Weight Physical Exam: General: no apparent distress. Alert. On nasal cannula oxygen. Eyes: No obvious scleral icterus. HEENT: No jugular venous distention or abnormal jugular venous pulsations. Cardiovascular: Normal intensity S1/S2. PMI not grossly displaced. Respiratory: Bilateral wheezes noted Abdomen: Soft, nontender with no guarding or rebound tenderness. Musculoskeletal: No clubbing or cyanosis noted Skin: No obvious rashes or ulcerations., No edema Neurologic: No gross focal deficits noted. Lymph: No gross lymphadenopathy. Labs/Kameron Results: Laboratory Tests 07/03 07/03 07/02 0510 0003 1749 Chemistry Sodium (137 - 145 mmol/L) 140 Potassium (3.5 - 5.1 mmol/L) 4.9 Chloride (98 - 107 mmol/L) 106 Carbon Dioxide (22 - 30 mmol/L) 21 L Anion Gap (5 - 16) 14 BUN (7 - 17 mg/dL) 15 Creatinine (0.5 - 1.0 mg/dL) 0.9 Estimated GFR (>60 ml/min) > 60 BUN/Creatinine Ratio (7 - 25 %) 16.7 Troponin I (< 0.11 ng/ml) < 0.01 < 0.01 Hematology CBC w Diff MAN DIFF ORDERED WBC (4.8 - 10.8 /CUMM) 7.0 RBC (4.20 - 5.40 /CUMM) 4.93 Hgb (12.0 - 16.0 G/DL) 14.4 Hct (37 - 47 %) 43.0 MCV (81.0 - 99.0 FL) 87.3 MCH (27.0 - 31.0 PG) 29.2 RDW (11.5 - 14.5 %) 13.8 Plt Count (130 - 400 /CUMM) 241 MPV (7.4 - 10.4 FL) 9.2 Gran % (42.2 - 75.2 %) 85.7 H Lymphocytes % (20.5 - 51.1 %) 11.3 L Monocytes % (1.7 - 9.3 %) 2.2 Eosinophils % (0 - 5 %) 0.1 Basophils % (0.0 - 2.0 %) 0.7 Absolute Granulocytes (1.4 - 6.5 /CUMM) 6.0 Segmented Neutrophils (42.2 - 75.2 %) 83 H Band Neutrophils (0.0 - 5.0 %) 3 Absolute Lymphocytes (1.2 - 3.4 /CUMM) 0.8 L Lymphocytes (20.5 - 51.1 %) 11 L Monocytes (1.7 - 9.3 %) 3 Absolute Monocytes (0.10 - 0.60 /CUMM) 0.2 Absolute Eosinophils (0.0 - 0.7 /CUMM) 0 Absolute Basophils (0.0 - 0.2 /CUMM) 0 Platelet Estimate (ADEQUATE) ADEQUATE Normocytic RBCs VERIFIED Normochromic RBCs VERIFIED PUBS MCHC (33.0 - 37.0 G/DL) 33.5 Other Body Source Fld Total RBCs Counted (%) 100 07/02 07/02 1138 1126 Chemistry Sodium (137 - 145 mmol/L) 141 Potassium (3.5 - 5.1 mmol/L) 4.0 Chloride (98 - 107 mmol/L) 100 Carbon Dioxide (22 - 30 mmol/L) 24 Anion Gap (5 - 16) 17 H BUN (7 - 17 mg/dL) 8 Creatinine (0.5 - 1.0 mg/dL) 0.9 Estimated GFR (>60 ml/min) > 60 BUN/Creatinine Ratio (7 - 25 %) 8.9 Glucose (65 - 99 mg/dL) 118 H Calcium (8.4 - 10.2 mg/dL) 9.6 Magnesium (1.6 - 2.3 mg/dL) 2.0 Total Bilirubin (0.2 - 1.3 mg/dL) 0.8 AST (14 - 36 U/L) 21 ALT (9 - 52 U/L) 40 Alkaline Phosphatase (<127 U/L) 98 Troponin I (< 0.11 ng/ml) < 0.01 Total Protein (6.3 - 8.2 g/dL) 7.9 Albumin (3.5 - 5.0 g/dL) 4.6 Globulin (1.9 - 4.2 gm/dL) 3.3 Albumin/Globulin Ratio (1.1 - 2.2 %) 1.4 TSH (0.270 - 4.200 uIU/mL) 1.100 Free T4 (0.64 - 1.79 ng/dL) 1.11 Total Beta HCG (NEGATIVE) Cancelled NEGATIVE Coagulation D-Dimer (70 - 232 ng/ml) < 200 Hematology CBC w Diff NO MAN DIFF REQ WBC (4.8 - 10.8 /CUMM) 9.4 RBC (4.20 - 5.40 /CUMM) 5.74 H Hgb (12.0 - 16.0 G/DL) 16.8 H Hct (37 - 47 %) 50.0 H MCV (81.0 - 99.0 FL) 87.1 MCH (27.0 - 31.0 PG) 29.2 RDW (11.5 - 14.5 %) 13.8 Plt Count (130 - 400 /CUMM) 258 MPV (7.4 - 10.4 FL) 8.8 Gran % (42.2 - 75.2 %) 74.6 Lymphocytes % (20.5 - 51.1 %) 10.2 L Monocytes % (1.7 - 9.3 %) 11.8 H Eosinophils % (0 - 5 %) 1.8 Basophils % (0.0 - 2.0 %) 1.6 Absolute Granulocytes (1.4 - 6.5 /CUMM) 7.0 H Absolute Lymphocytes (1.2 - 3.4 /CUMM) 1.0 L Absolute Monocytes (0.10 - 0.60 /CUMM) 1.1 H Absolute Eosinophils (0.0 - 0.7 /CUMM) 0.2 Absolute Basophils (0.0 - 0.2 /CUMM) 0.2 PUBS MCHC (33.0 - 37.0 G/DL) 33.6 Diagnostic Data EKG Results Twelve-lead ECG tracing shows a sinus rhythm at 75 bpm with short FL interval and preexcitation CXR Results IMPRESSION: No dense consolidation. Bronchial wall thickening can be seen with a small airways process such as asthma or atypical/viral infection. Assessment/Plan Assessment/Plan 1. Acute bronchitis with likely new onset COPD exacerbation 2. Extensive the history of cigarette smoking 3. History of Nrmsz-Oomdtdwjt-Ygplr syndrome diagnosed 15 years ago not requiring ablation I agree that the patient likely has undiagnosed COPD given her extensive smoking history. Current bronchospasm was likely triggered by acute bronchitis. She has no evidence of acute coronary syndrome or decompensated congestive heart failure. His troponins are within normal limits. She has asymptomatic Kimmie- Parkinson-White syndrome with no history of palpitations or syncope. Would keep her on telemetry while here in the hospital and agree with obtaining an echocardiogram. She will need pulmonary function testing in the future. Douglas White MD [facility] Consult Acknowledgment - Thank you for your consult request.
[2016-07-03] MEDS ORDERED: GUAIFENESIN DM S5 ML PO (17:34)
[2016-07-03] MEDS ORDERED: NICOTINE PATCH1 EAC3 TOP (17:35)
--- NOTE | 2016-07-03 17:38 | Patient Discharge Instructions ---
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 -discharging on low-flow oxygen (home oxygen 2l) with follow-up at office next week after discharge Diet Continue normal diet: Yes Activity Full Activity/No Limits: Yes Acute Coronary Syndrome Inclusion Criteria At DC or during hospital stay patient has or had the following: ACS DIAGNOSIS No Discharge Core Measures Meds if any: Prescribed or Continued at Discharge Meds if any: NOT Prescribed or Continued at Discharge Congestive Heart Failure Inclusion Criteria At DC or during hospital stay patient has or had the following: CHF DIAGNOSIS No Discharge Core Measures Meds if any: Prescribed or Continued at Discharge Meds if any: NOT Prescribed or Continued at Discharge Cerebrovascular accident Inclusion Criteria At DC or during hospital stay patient has or had the following: CVA/TIA Diagnosis No Discharge Core Measures Meds if any: Prescribed or Continued at Discharge Meds if any: NOT Prescribed or Continued at Discharge Venous thromboembolism Inclusion Criteria VTE Diagnosis No VTE Type NONE VTE Confirmed by (Test) NONE Discharge Core Measures - Per Current guidelines, there needs to be overlap - treatment for the first 5 days of Warfarin therapy. - If discharged on Warfarin prior to 5 days of - overlap therapy, the patient will need to be - assessed for post discharge needs including - *Post discharge parental anticoagulation - *Warfarin and/or parental anticoagulation education - *Follow up date to check INR post discharge At least 5 days overlap therapy as Inpatient No Meds if any: Prescribed or Continued at Discharge Note: Overlap Therapy is Warfarin and Anticoagulant Meds if any: NOT Prescribed or Continued at Discharge
--- NOTE | 2016-07-03 18:15 | Discharge Summary ---
Visit Information Visit Dates Admission Date: 07/02/16 Discharge Date: 07/08/16 Hospital Course Course Attending Physician: NIR LOZANO,TAI Butler Primary Care Physician: UNKNOWN Other Care Providers: bi analyst-Edgar White MD Consulting Request: Consulting Specialty: Cardiology Hospital Course: This is a 50-year-old female with past medical history of asthma, 40 year smoking history, diabetes mellitus, WPW syndrome, depression presented to emergency department with chief complaint of shortness of breath on exertion, cough, green colored sputum production, chest tightness, wheezing, pleuritic chest pain for 3 days. Also had generalized weakness and fatigue. Vitals on admission-afebrile, tachycardic 126, respiratory rate 34, blood pressure 120/60, saturating at 92% on room air. Pertinent labs on admission CBC normal, BEP normal, LFTs normal, thyroid function tests normal. Troponin negative. EKG showed sinus tachycardia rate 108, ST depressions diffuse in V3, V4, V5, V6. Chest x-ray showed bronchial wall thickening with small airway process suggestive of asthma. Possible COPD exacerbation versus acute bronchitis Patient presented with worsening shortness of breath, cough, sputum production green color, chest tightness, worsening of wheezing. Of note she is a smoker for 40 years- 1 pack per day. Chest x-ray showed bronchial wall thickening suggestive of asthma. Admitted to telemetry floor for Possible COPD exacerbation versus asthma exacerbation versus acute bronchitis. Maintained oxygen saturation above 92% . Provided supplemental oxygen. Ofnote patient is not on home oxygen. She was given IV steroids and oral antibiotics. Received total respiratory care and inhaler treatment. blood culture and sputum cultures negative. She remained afebrile with normal leukocyte count. She was discharged on oral prednisone taper and ipratopium, symbicort inhaler, albuterol nebuliser. smoking cessation counselling was given and nicotine patch was prescribed. Acute hypoxic respiratory failure Patient presented with worsening shortness of breath on exertion. Tachycardic and tachypneic on admission. Requiring oxygen through nasal cannula. Of note patient is not on oxygen at home. POSSIBLY from COPD exacerbation versus asthma exacerbation versus acute bronchitis. Provided supplemental oxygen. Maintained oxygen saturation ABOVE 92% . Patient was sent home on home oxygen 2l. History of asthma Currently, the symptoms that she describes fits more to COPD versus asthma. She never had pulmonary function test to differentiate among these two. She takes Proventil every day (even if she does not have any symptoms) and says that she has not had any asthma attacks for a long period of time. Needs an outpatient pulmonolist followup and pulmonary function tests. Referral was provided with central aisle cashier. History of Mmpdc-Pqsuhljte-Vvjfs syndrome Patient mentioned that she has history of Whilh-Fbkufgpbt-Scveu syndrome, which was diagnosed 20 years ago, but has not had any ablative procedures, as she does not have any bi analyst or PCP. (She visits [facility] for her mental health issues). Advised her to follow-up with bi analyst and the referral was provided. Depression Continued home medication Zyprexa #Nicotine dependence -Patient on nicotine patch. Smoking cessation counseling given. Diabetes mellitus Accu-Cheks, NovoLog sliding scale. Diffuse st depressions EKG showed sinus tachycardia, rate 108, ST depressions in V3, V4, V5, V6 on admission. Troponins were negative. Ruled out acute coronary syndrome. Wheelchair Driver was consulted. Patient is asymptomatic, denied any chest pain, palpitations, sweating, diaphoresis. echo was normal. #Diet: Regular diet Lovenox for DVT prophylaxis full code Complications: none Allergies: Coded Allergies: Penicillins (Intermediate, RASH 07/02/16) Significant Procedures: none Pertinent Lab Results: cxr No dense consolidation. Bronchial wall thickening can be seen with a small airways process such as asthma or atypical/viral infection. echo Normal left and right ventricular systolic function. No significant valvular abnormalities. Disposition Summary Disposition Principal Diagnosis: 1. Possible COPD exacerbation 2. Acute hypoxic respiratory failure 3. Diabetes mellitus 4. EKG changes-diffuse ST depressions Additional Diagnosis: Possible asthma exacerbation versus acute bronchitis Discharge Disposition: home or self care Discharge Instructions General Discharge Information Code Status: Full Code Patient's Diet: as tolerated Patient's Activity: As tolerated Follow-Up Instructions/Appts: -Follow up with your primary care doctor in 1 week -Follow up with bi analyst Edgar White MD in 1-2 weeks -Follow up central aisle cashier, germaine Matta in one week after discharge- needs outpatient pulmonary function testing. -discharging on low-flow oxygen (home oxygen 2l) with follow-up at office next week after discharge Medications at Discharge Discharge Medications: Continue taking these medications: Albuterol Sulfate (Proventil Hfa) 6.7 GM HFA.AER.AD 1-2 PUFF Inhale through mouth EVERY SIX HOURS NEEDED as needed for SOB Qty = 1 Comments: given 07/08/16 @ 0810 Olanzapine (Olanzapine) 10 MG TABLET 1 Tablet ORAL Every night Comments: given 07/07/16 @ 10 pm Start taking the following new medications: Ipratropium [place] (Ipratropium [place]) 0.2 MG/ML (0.02 %) SOLUTION 2.5 Milliliters Inhale through mouth EVERY 4 HRS WHILE AWAKE Days = 30 No Refills Comments: given 07/08/16 @ 0810 Guaifenesin/Dextromethorphan (Guaifenesin Dm Syrup) 100 MG-10 MG/5 ML SYRUP 10 Milliliters ORAL EVERY SIX HOURS NEEDED as needed for COUGH Qty = 1 No Refills Comments: given 07/08/16 @ 0230 Nicotine (Nicotine Patch) 21 MG/24 HOUR PATCH.TD24 1 Patch On the skin DAILY Qty = 10 No Refills Comments: given 07/08/16 @ 0815 Prednisone (Prednisone) 10 MG TABLET 1 Tablet ORAL See Instructions Qty = 26 No Refills Instructions: TAKE 4TABLETS FOR 2DAYS TAKE 3TABLETS FOR 3DAYS TAKE 2TABLETS FOR 3DAYS TAKE 1TABLET FOR 3DAYS THEN STOP PREDNISONE. Comments: given 07/08/16 @ 0815 Budesonide/Formoterol Fumarate (Symbicort 160-4.5 Mcg Inhaler) 160 MCG-4.5 MCG/ ACTUATION HFA.AER.AD 2 Puff Inhale through mouth TWICE DAILY Qty = 1 No Refills Comments: not given in hospital Oxycodone HCl/Acetaminophen (Percocet 10-325 MG Tablet) 10 MG-325 MG TABLET 1 Tablet ORAL 4 TIMES A DAY as needed for PAIN Qty = 6 No Refills Comments: given 07/08/16 @ 0840 Albuterol Sulfate (Albuterol Sulfate) 1.25 MG/3 ML VIAL.NEB 1 Vial Inhale Solution THREE TIMES DAILY as needed for COPD Days = 30 No Refills Comments: given 07/08/16 @ 0810 Copies To: FELI LOZANO,GERMAINE Arellano
[2016-07-03 18:44] VITALS: BP 111/66
--- NOTE | 2016-07-03 20:56 | NUR ---
ASSUMED CARE OF PT FROM [id number]. PT IN ROOM 19 OF ED. DURING THIS TIME PT WAS ALERT AND ORIENTED. ABLE TO AMBULATE TO BATHROOM TO VOID WITHOUT O2 ON. DOES GET SOB WITH EXERTION. TOLERATED DIET. COMPLAINING OF COUGH, GIVEN ROBITUSSIN. SINUS RHTYHM ON MONITOR. REPORT CALLED TO RECIEVING UNIT AND PT BROUGHT TO [facility] FLOOR AT [id number]
[2016-07-04 08:19] VITALS: BP 110/72
--- NOTE | 2016-07-04 14:19 | PN- Housestaff ---
DIANE LOZANO,TYLER 07/04/16 1418: Subjective Follow-up For: COPD exacerbation Acute hypoxic respiratory failure Diabetes mellitus Complaints: SOB Subjective: patient is seen and examined at the bed side.she is c/o wheezing and SOB. Review of Systems Constitutional: Reports: see HPI. Cardiovascular: Denies: chest pain, edema, orthopena, palpitations, peripheral edema. Respiratory: Reports: cough, short of breath, wheezing. Gastrointestinal: Denies: abdominal pain, bloating, constipation, diarrhea, distention, melena. Genitourinary: Denies: dysuria, frequency, hematuria, hesitation. Objective Last 24 Hrs of Vital Signs/I&O Vital Signs Date Time Temp Pulse Resp B/P Pulse O2 O2 Flow FiO2 Ox Delivery Rate 07/04 1806 95 Nasal 3.0L Cannula 07/04 1621 97.7 82 18 126/65 94 Nasal 3.0L Cannula 07/04 1600 94 Nasal 2.5L Cannula 07/04 0853 94 Nasal 2.5L Cannula 07/04 0819 97.9 70 18 110/72 92 Nasal 2.0L Cannula 07/04 0702 Nasal 2.0L Cannula 07/04 0000 93 Nasal 2.0L Cannula Intake & Output 07/04 1600 07/04 0800 07/04 0000 Intake Total 420 400 360 Output Total Balance 420 400 360 Intake, IV 20 Intake, Oral 400 400 360 Physical Exam General Appearance: Alert, Oriented X3, Cooperative, Mild Distress Skin: No Rashes, No Breakdown HEENT: Atraumatic, PERRLA, EOMI Neck: Supple, No JVD Cardiovascular: Regular Rate, Normal S1, Normal S2 Lungs: decrease air entry and wheezing Abdomen: Soft, No Tenderness Neurological: Normal Gait, Normal Speech Extremities: No Clubbing, No Cyanosis, No Edema Vascular: Normal Pulses, Pulses Symmetrical Assessment/Plan Assessment: This is a 50-year-old chronic smoker female with PMH of asthma, 40 year smoking history, diabetes mellitus, WPW syndrome, depression presented to emergency department with chief complaint of shortness of breath on exertion, cough, green colored sputum production, chest tightness, wheezing, pleuritic chest pain for 3 days. Also had generalized weakness and fatigue. Problem list 1. Possible COPD exacerbation 2. Acute hypoxic respiratory failure 3. Diabetes mellitus 4. EKG changes-diffuse ST depressions Plan- According to the wheelchair rental clerk. Patient can discharge today Waiting for the response of neurologist and follow the recommendation Continue telemetry monitoring Keep the patient on oxygen with target of saturation more than 92% Vital signs every shift Continue IV steroids We will continue tablet azithromycin orally TRC/nebulization Sputum sample is not sent for culture Follow-up echocardiogram Avoid AV ventura blocking agent as the patient is having history of hyperlipidemia syndrome Continue antidepressant Continue nicotine patch Continue blood sugar monitoring. Pre-meal and at the bedtime and supplements with NovoLog according to sliding scale Regular diet ALP S/Lovenox for DVT prophylaxis CODE STATUS full code Problem List: 1. Acute hypoxemic respiratory failure 2. Depression 3. Nicotine dependence 4. Asthma Pain Ratin Pain Location: Generalized body Pain Goal: Remain pain free Pain Plan: Fhgv-ln-lqwvunta, we changed oxycodone q4p Tomorrow's Labs & Rationales: CBC DVT/Prophylaxis: mechanical, pharmacological Consulting Request: Consulting Specialty: Cardiology CHRISTA LOZANO,[facility] 07/04/16 1644: Attending MD Review Statement Attending Statement Attending MD Statement: examined this patient, discuss w/resident/PA/HEALTHCARE SPECIALIST, agreed w/resident/PA/HEALTHCARE SPECIALIST, reviewed EMR data (avail), discussed with nursing, reviewed images Attending Assessment/Plan: 50-year-old female, active smoker with past medical history significant for diabetes mellitus, Gvdah-Crfpczdby-Vrgjm syndrome, asthma, anxiety/depression is being admitted on the floor for asthma exacerbation. She was seen and examined on the bedside and is still actively wheezing and needing IV steroids with oxygen requirements of 3 L via nasal cannula. Cardiology has been on board and the patient has been ruled out for acute coronary syndrome. Echo is still pending. We will continue with the current treatment, IV steroids, antibiotics, albuterol inhalers and will continue to monitor.
[2016-07-04 16:21] VITALS: BP 126/65
[2016-07-04 23:04] VITALS: BP 138/80
[2016-07-05 08:27] VITALS: BP 122/62
[2016-07-05 08:33] LABS: ABSOLUTE BASOPHIL COUNT 0 /CUMM (0.0-0.2); ABSOLUTE EOSINOPHIL COUNT 0 /CUMM (0.0-0.7); ABSOLUTE LYMPH COUNT 0.8 /CUMM (1.2-3.4); ABSOLUTE MONOCYTE COUNT 0.3 /CUMM (0.10-0.60); MEAN CORPUSCULAR HGB 29.3 PG (27.0-31.0); MEAN CORPUSCULAR VOLUME 88.8 FL (81.0-99.0); RED BLOOD CELL CT 5.11 /CUMM (4.20-5.40)
[2016-07-05 09:00] LABS: ABSOLUTE GRANULOCYTE CT 12.3 /CUMM (1.4-6.5); BASOPHIL % 0.3 % (0.0-2.0); EOSINOPHIL % 0.1 % (0-5); GRANULOCYTE % 91.6 % (42.2-75.2); HEMATOCRIT 45.4 % (37-47); MEAN PLATELET VOLUME 9.5 FL (7.4-10.4); PLATELET COUNT 267 /CUMM (130-400)
[2016-07-05 09:13] LABS: WHITE BLOOD CELL COUNT 13.5 /CUMM (4.8-10.8)
--- NOTE | 2016-07-05 11:36 | PN- Att Addend ---
Attending Addendum Attending Brief Note 50-year-old female, active smoker with past medical history significant for diabetes mellitus, Imicu-Zaeedwklk-Mybcb syndrome, asthma, anxiety/depression is being admitted on the floor for asthma exacerbation likely in the setting of acute bronchitis. She was seen and examined on the bedside and has still wheeze on physical examination but much better as compared to yesterday. We'll taper down his IV steroids to 40 mg twice a day. Her oxygen saturation has improved from 3 L to 2 L via NC. She can be switched to oral steroids tomorrow and further course of management will depend on tomorrow's assessment. Cardiology has been on board and the patient has been ruled out for acute coronary syndrome. Echo is still pending. We will continue with the current treatment, IV steroids, antibiotics, /TRC nebs, albuterol inhalers and will continue to monitor. Patient is willing to quit smoking and has good experience with Chantix in the past. She can be started on Chantix on discharge or can follow-up with her primary care physician for other options.
--- NOTE | 2016-07-05 13:17 | PN- Housestaff ---
Subjective Follow-up For: COPD exacerbation Acute hypoxic respiratory failure Diabetes mellitus Subjective: patient was seen and examined this morning, she is on 2 l oxygen with 91 %. continue to have cough some clear sputum, cough is worse at night with audable wheeze. Review of Systems Constitutional: Denies: see HPI. Objective Last 24 Hrs of Vital Signs/I&O Vital Signs Date Time Temp Pulse Resp B/P Pulse O2 O2 Flow FiO2 Ox Delivery Rate 07/05 826 64 18 122/62 91 Nasal 2.0L Cannula 07/05 799 91 Nasal 3.0L Cannula 07/05 0645 97 Nasal 2.0L Cannula 07/05 0000 Nasal 3.0L Cannula 07/04 2304 97.9 87 18 138/80 92 Nasal Cannula 07/04 1806 95 Nasal 3.0L Cannula 07/04 1621 97.7 82 18 126/65 94 Nasal 3.0L Cannula 07/04 1600 94 Nasal 2.5L Cannula Intake & Output 07/05 1600 07/05 0000 Intake Total 770 Output Total Balance 770 Intake, IV 20 Intake, Oral 750 Number 0 Bowel Movements Physical Exam General Appearance: Alert, Oriented X3, Cooperative, No Acute Distress Cardiovascular: Regular Rate, Normal S1, Normal S2, No Murmurs Lungs: deacrease air entery, wide speard wheeze Abdomen: Normal Bowel Sounds, Soft, No Tenderness Neurological: Normal Speech, Strength at 5/5 X4 Ext, Normal Tone, Sensation Intact, Cranial Nerves 3-12 NL, Reflexes 2+ Extremities: No Clubbing, No Cyanosis, No Edema Assessment/Plan Assessment: This is a 50-year-old chronic smoker female with PMH of asthma, 40 year smoking history, diabetes mellitus, WPW syndrome, depression presented to emergency department with chief complaint of shortness of breath on exertion, cough, green colored sputum production, chest tightness, wheezing, pleuritic chest pain for 3 days. Also had generalized weakness and fatigue. Problem list 1. Possible COPD exacerbation 2. Acute hypoxic respiratory failure 3. Diabetes mellitus 4. EKG changes-diffuse ST depressions Plan- continue current managment including IV steroid and antibiotic azithromycin 250 mg daily can be swatched to oral steroid tomorrow Patient is welling to quit smoking Keep the patient on oxygen with target of saturation more than 92% Vital signs every shift Follow-up echocardiogram Avoid AV ventura blocking agent as the patient is having history of hyperlipidemia syndrome Continue antidepressant Continue nicotine patch Continue blood sugar monitoring. Pre-meal and at the bedtime and supplements with NovoLog according to sliding scale Regular diet ALP S/Lovenox for DVT prophylaxis CODE STATUS full code Problem List: 1. Depression 2. Acute hypoxemic respiratory failure 3. Nicotine dependence 4. Asthma Pain Ratin Pain Location: n/a Pain Goal: Remain pain free Pain Plan: see mediaction Tomorrow's Labs & Rationales: cbc, cmp Consulting Request: Consulting Specialty: Cardiology
--- NOTE | 2016-07-05 13:50 | NUR ---
PATIENT CONTINUES TO WHEEZE AND REQUIRES O2 AT 2L. SATURATION 91%. EXERTIONAL SOB. ATTENDING IN ROOM. IV SOLUMEDROL CONTINUES. PATIENT COMPLAINS OF FATMATA RIB PAIN WHICH INCREASE WITH COUGHING. MEDICATED WITH PERCACET WITH RELIEF. OOB AMBULATION ENCOURAGE. WILL FOLLOW PLAN OF CARE.
[2016-07-05 15:35] VITALS: BP 149/53
--- NOTE | 2016-07-05 18:11 | ECHOCARDIOGRAM REPORT ---
MEAGHAN VELASQUEZ Age: 50 : 1965 Gender: F Exam Date: 07/05/2016 10:12 Exam Location: 1 [address] Ht (in): 68 Wt (lb): 165 BSA: 1.90 BP: 138 / 80 Ordering Physician: REMBERTO MA MD Referring Physician: Edgar White M.D. Technologist: Marie Fleming [facility] Room Number: 184-01 Indications: SHORTNESS OF BREATH Rhythm: Sinus Technical Quality: poor FINDINGS Left Ventricle Normal global left ventricular size, wall thickness, systolic function with no obvious regional wall motion abnormalities. Normal left ventricular ejection fraction estimated at 60-65%. Right Ventricle Normal right ventricular size and function. Right Atrium Normal right atrial size. Left Atrium Normal left atrial size. Mitral Valve Mitral valve not well visualized, grossly normal. Trace mitral regurgitation. Aortic Valve Aortic valve not well visualized, grossly normal. No aortic stenosis. Tricuspid Valve Tricuspid valve is normal in structure and function. Pulmonic Valve Pulmonic valve not well visualized, grossly normal. Pericardium No pericardial effusion. Great Vessels Normal size aortic root. CONCLUSIONS Normal left and right ventricular systolic function. No significant valvular abnormalities. Jose Luis Nance M.D. (Electronically Signed) Final Date: 05 July 2016 18:10 MEASUREMENTS (Male / Female) Normal Values 2D ECHO LV Diastolic Diameter PLAX 3.9 cm 4.2 - 5.9 / 3.9 - 5.3 cm LV Systolic Diameter PLAX 2.7 cm 2.1 - 4.0 cm LV Fractional Shortening PLAX 30.8 % 25 - 46 % LV Ejection Fraction 2D Teich 59.0 % IVS Diastolic Thickness 0.9 cm LVPW Diastolic Thickness 0.8 cm LV Relative Wall Thickness 0.4 RV Internal Dim ED PLAX 2.7 cm 1.9 - 3.8 cm LVOT Diameter 1.8 cm Aortic Root Diameter 2.8 cm LA Systolic Diameter LX 2.9 cm 3.0 - 4.0 / 2.7 - 3.8 cm LA Volume 21.0 cm 18 - 58 / 22 - 52 cm DOPPLER AV Peak Velocity 149.0 cm/s AV Peak Gradient 8.9 mmHg AV Mean Velocity 94.4 cm/s AV Mean Gradient 4.0 mmHg AV Velocity Time Integral 26.0 cm LVOT Peak Velocity 140.0 cm/s LVOT Peak Gradient 7.8 mmHg LVOT Mean Velocity 86.5 cm/s LVOT Mean Gradient 4.0 mmHg LVOT Velocity Time Integral 24.0 cm LVOT Stroke Volume 61.1 cm AV Area Cont Eq vti 2.3 cm AV Area Cont Eq pk 2.4 cm MV Peak Velocity 96.1 cm/s MV Peak Gradient 3.7 mmHg MV Mean Velocity 62.6 cm/s MV Mean Gradient 2.0 mmHg Mitral E Point Velocity 88.8 cm/s Mitral A Point Velocity 88.8 cm/s Mitral E to A Ratio 1.0 MV PHT Velocity 98.9 cm/s MV Deceleration Hand 576.0 cm/s MV Pressure Half Time 51.5 ms MV Area PHT 4.3 cm MV Deceleration Time 312.0 ms PV Peak Velocity 124.0 cm/s PV Peak Gradient 6.2 mmHg PV Mean Velocity 84.2 cm/s PV Mean Gradient 3.0 mmHg PV Velocity Time Integral 19.4 cm LV E' Lateral Velocity 9.3 cm/s Mitral E to LV E' Lateral Ratio 9.6 LV E' Septal Velocity 10.0 cm/s Mitral E to LV E' Septal Ratio 8.9
[2016-07-06 02:33] VITALS: BP 124/66
[2016-07-06 07:59] LABS: ABSOLUTE BASOPHIL COUNT 0 /CUMM (0.0-0.2); ABSOLUTE EOSINOPHIL COUNT 0 /CUMM (0.0-0.7); ABSOLUTE GRANULOCYTE CT 9.9 /CUMM (1.4-6.5); ABSOLUTE MONOCYTE COUNT 0.6 /CUMM (0.10-0.60); BASOPHIL % 0.1 % (0.0-2.0); EOSINOPHIL % 0 % (0-5); MEAN CORPUSCULAR HGB 29.4 PG (27.0-31.0); MEAN CORPUSCULAR HGB CONC 33.3 G/DL (33.0-37.0); MEAN CORPUSCULAR VOLUME 88.2 FL (81.0-99.0); MEAN PLATELET VOLUME 9.2 FL (7.4-10.4); RBC DISTRIBUTION WIDTH 13.8 % (11.5-14.5); RED BLOOD CELL CT 4.99 /CUMM (4.20-5.40); WHITE BLOOD CELL COUNT 11.5 /CUMM (4.8-10.8)
[2016-07-06 08:25] VITALS: BP 128/56
[2016-07-06 08:54] LABS: GRANULOCYTE % 86.2 % (42.2-75.2); PLATELET COUNT 263 /CUMM (130-400)
--- NOTE | 2016-07-06 09:31 | PN- Housestaff ---
NISHA FRANCO 07/06/16 0931: Subjective Follow-up For: 1. Possible COPD exacerbation 2. Acute hypoxic respiratory failure 3. Diabetes mellitus 4. EKG changes-diffuse ST depressions Complaints: pain scale (0-10) Tele-Events Since Last Visit: Normal sinus rhythm Rate 65-92 No other acute events monitored on telemetry Subjective: Patient was seen and examined this morning. She is alert, awake and oriented to time place and person. No acute overnight events noticed. She is having shortness of breath on exertion, cough, white colored sputum production. Associated with very bad wheezing. Denied any fever, chills. She denied any chest pain this morning. Denied racing of heart, hemoptysis, headache, dizziness or lightheadedness. Denied nausea, vomiting, abdominal pain, change in bladder or bowel habits. Vitals were stable, heart rate 88, respiratory rate 20, blood pressure 120/66, saturating at 96% on 3 L oxygen this morning. Review of Systems Constitutional: Denies: see HPI. Objective Last 24 Hrs of Vital Signs/I&O Vital Signs Date Time Temp Pulse Resp B/P Pulse O2 O2 Flow FiO2 Ox Delivery Rate 07/06 0838 92 Nasal 1.0L Cannula 07/06 0825 97.7 76 20 128/56 92 Nasal 2.0L Cannula 07/06 0233 97.8 88 18 124/66 96 Nasal Cannula 07/06 0000 Nasal 3.0L Cannula 07/05 1729 Nasal 3.0L Cannula 07/05 1603 92 Nasal 3.0L Cannula 07/05 1535 98.4 102 22 149/53 90 Nasal 2.0L Cannula Intake & Output 07/06 1600 07/06 0800 07/06 0000 Intake Total 400 Output Total Balance 400 Intake, Oral 400 Physical Exam General Appearance: Alert, Oriented X3, Cooperative, No Acute Distress Skin: No Rashes, No Breakdown HEENT: Atraumatic, Mucous Membr. moist/pink Neck: Supple, No JVD Lymphatic: Cervical nl Cardiovascular: Regular Rate, Normal S1, Normal S2, No Murmurs Lungs: decreased air entry and wheezing Abdomen: Normal Bowel Sounds, Soft, No Tenderness Extremities: No Clubbing, No Cyanosis, No Edema Vascular: Normal Pulses Current Medications: Current Medications Sig/Rosalina Start time Last Medication Dose Route Stop Time Status Admin Acetaminophen 650 MG Q6P PRN 07/02 1545 AC 07/03 PO 0430 Albuterol Sulfate 3 ML EVERY 4 HRS/AWAKE 07/02 1999 AC 07/06 INH 0837 Azithromycin 250 MG DAILY 07/03 1000 DC 07/06 PO 0959 Benzonatate 100 MG TID 07/02 1600 AC 07/06 PO 1000 Enoxaparin Sodium 40 MG DAILY 07/02 1436 AC 07/06 SC 1000 Guaifenesin 10 ML .STK-MED ONE 07/06 0226 DC PO 07/06 0227 Guaifenesin 10 ML .STK-MED ONE 07/05 1641 DC PO 07/05 1642 Guaifenesin 10 ML .STK-MED ONE 07/05 1447 DC PO 07/05 1448 Guaifenesin/ 10 ML Q6P PRN 07/02 2315 AC 07/06 Dextromethorphan PO 1003 Insulin Aspart 0 TIDAC 07/02 1700 AC 07/05 SC 1651 Ipratropium [place] 2.5 ML EVERY 4 HRS/AWAKE 07/02 1999 AC 07/06 INH 0837 Melatonin 5 MG AT BEDTIME 07/02 2199 AC 07/05 PO 2102 Methylprednisolone 40 MG Q8 07/02 220 AC 07/06 IV 0606 Morphine Sulfate 2 MG Q8P PRN 07/02 1545 AC IV Nicotine 21 MG DAILY 07/02 144 AC 07/06 TOP 0959 Olanzapine 10 MG QPM 07/02 220 AC 07/05 PO 2102 Oxycodone/ 1 TAB Q4P PRN 07/04 1700 AC 07/06 Acetaminophen PO 1003 Last 24 Hrs of Lab/Kameron Results Last 24 Hrs of Labs/Mics: Laboratory Tests 07/06/16 0620: Anion Gap 11, Estimated GFR > 60, BUN/Creatinine Ratio 31.4 H, CBC w Diff NO MAN DIFF REQ, RBC 4.99, MCV 88.2, MCH 29.4, RDW 13.8, MPV 9.2, Gran % 86.2 H, Lymphocytes % 8.3 L, Monocytes % 5.4, Eosinophils % 0, Basophils % 0.1, Absolute Granulocytes 9.9 H, Absolute Lymphocytes 1.0 L, Absolute Monocytes 0.6, Absolute Eosinophils 0, Absolute Basophils 0, PUBS MCHC 33.3 Assessment/Plan Assessment: This is a 50-year-old female with past medical history of asthma, 40 year smoking history, diabetes mellitus, WPW syndrome, depression presented to emergency department with chief complaint of shortness of breath on exertion, cough, green colored sputum production, chest tightness, wheezing, pleuritic chest pain for 3 days. Also had generalized weakness and fatigue. Vitals on admission-afebrile, tachycardic 126, respiratory rate 34, blood pressure 120/60, saturating at 92% on room air. Pertinent labs on admission CBC normal, BEP normal, LFTs normal, thyroid function tests normal. Troponin negative. EKG showed sinus tachycardia rate 108, ST depressions diffuse in V3, V4, V5, V6. Chest x-ray showed bronchial wall thickening with small airway process suggestive of asthma. Problem list 1. Possible COPD exacerbation 2. Acute hypoxic respiratory failure 3. Diabetes mellitus 4. EKG changes-diffuse ST depressions on admisssion. Possible COPD exacerbation Patient presented with worsening shortness of breath, cough, sputum production green color, chest tightness, worsening of wheezing. Of note she is a smoker for 40 years- 1 pack per day. Chest x-ray showed bronchial wall thickening suggestive of asthma. * Admitted to telemetry floor for further monitoring * Possible COPD exacerbation versus asthma exacerbation * Maintain oxygen saturation above 92% * Monitor vitals every shift * Provide supplemental oxygen if necessary * Methylprednisone 40 every 6 hours * Oral azithromycin 250 mg- day5. Completed 5 day course of antibiotics. * Continue inhalers albuterol * Follow-up sputum cultures, blood cultures- neg so far * Lab urine Legionella and streptococcal antigen * Total respiratory care * Still wheezing and requiring oxygen Acute hypoxic respiratory failure Patient presented with worsening shortness of breath on exertion. Tachycardic and tachypneic on admission. Requiring oxygen through nasal cannula. Of note patient is not on oxygen at home. POSSIBLY from COPD exacerbation versus asthma exacerbation versus acute bronchitis * Provide supplemental oxygen * Maintain oxygen saturation ABOVE 92% * Total respiratory care History of asthma Currently, the symptoms that she describes fits more to COPD versus asthma. She never had pulmonary function test to differentiate among these two. She takes Proventil every day (even if she does not have any symptoms) and says that she has not had any asthma attacks for a long period of time. * Currently being managed as outlined above * Automotive Drivability Technician was consulted. Dr. Jordan on board * Needs an outpatient pulmonary function tests. History of Biwip-Yismumxtv-Zkxjn syndrome Patient mentioned that she has history of Xhbhv-Dzfaxyxit-Mnyvs syndrome, which was diagnosed 20 years ago, but has not had any ablative procedures, as she does not have any compounder flavorings or PCP. (She visits [facility] for her mental health issues). PLEASE DO NOT GIVE ANY AV-LEANDRA BLOCKING AGENT, EVEN IF TACHYCARDIAC, due to WPW SYNDROME. Depression -Continue home medication Zyprexa #Nicotine dependence -Patient now on nicotine patch. Smoking cessation counseling given. Diabetes mellitus Accu-Cheks NovoLog sliding scale Diffuse st depressions on admission EKG showed sinus tachycardia, rate 108, ST depressions in V3, V4, V5, V6 on admission Troponins were negative. Ruled out acute coronary syndrome Health Specialist was consulted Patient is asymptomatic denied any chest pain, palpitations, sweating, diaphoresis. Patient is in normal sinus rhythm. ECHO- Normal left and right ventricular systolic function. No significant valvular abnormalities. #Diet: Regular diet Lovenox for DVT prophylaxis full code Problem List: 1. Acute hypoxemic respiratory failure 2. Asthma Pain Ratin Pain Location: none Pain Goal: Remain pain free Pain Plan: tylinol Tomorrow's Labs & Rationales: none Consulting Request: Consulting Specialty: Cardiology NIR LOZANO,TAI 07/06/16 1409: Attending MD Review Statement Attending Statement Attending MD Statement: examined this patient, discuss w/resident/PA/GIS DATABASE ADMINISTRATOR, agreed w/resident/PA/GIS DATABASE ADMINISTRATOR, reviewed EMR data (avail), discussed with nursing, discussed with case mgmt Attending Assessment/Plan: Appreciate pulmonary eval. 50-year-old female with active tobacco use here with an acute COPD exacerbation. We have her on IV steroids but she still wheezing a lot and pulm is recommending to increase the frequency of the Solu-Medrol. She is on TRC with nebs. She finished 5 days of oral Zithromax today. She also has WPW with some nonspecific ST-T changes but cardiology is recommending that we can stop the monitor and this can be followed up as an outpatient.
--- NOTE | 2016-07-06 10:26 | PN- Student ---
Subjective Subjective: Patient is a 50 year old female with pmh of asthma and 30 pack year smoking history who presented to the ED due to shortness of breath, pluretic chest pain, and severe cough. Patient was given azithromycin,methlyprednisolone, and albuterol which have significantly improved her symptoms. Today patient was examined at bedside. Patient reports feeling much better. Patient had no overnight events, she was normal sinus rythm pacing from 65-92. She is able to to catch her breath more than before. Patient reports less chest tightness and wheezing. Patient still has some cough but it is much better than before and patient reports less sputum production. Patient reported that she would like to stop smoking. Patient requests prescription for chantix and has a plan to quit with her for support. She would also like to be refffered to a PCP since she does not currently have one. Objective Objective: Patient was examined at bedside on nasal cannula 1L. BP was 128/56, HR was 76, temp was 97.7, and pulse ox was 92. On physcial exam patient still has wheezing and distant breath sounds, however the wheezes are improved. Patient had regular S1 and S2, no murmus, rubs, or gallops. Vital Signs Date Time Temp Pulse Resp B/P Pulse O2 O2 Flow FiO2 Ox Delivery Rate 07/06 1108 92 Nasal 1.0L Cannula 07/06 0838 92 Nasal 1.0L Cannula 07/06 0825 97.7 76 20 128/56 92 Nasal 2.0L Cannula 07/06 0233 97.8 88 18 124/66 96 Nasal Cannula 07/06 0000 Nasal 3.0L Cannula 07/05 1729 Nasal 3.0L Cannula 07/05 1603 92 Nasal 3.0L Cannula 07/05 1535 98.4 102 22 149/53 90 Nasal 2.0L Cannula ROS: Constitutional: No fever, pallor, mild fatigue HEENT: no headaches or chnages in vision HEART: Normal S1/ S2 no rubs, murmus, or gallops LUNGS: breath sounds distant, wheezes appreciated in apex and lower lungs bilaterally EXTREMETIES: no edema NEURO: No weakness, no numbness or tingling Assessment/Plan Assessment: Patient is a 50 year old female with PMH of asthma, chronic smoker of 30 pack year, amd WPW presenting for SOB and cough. Assement: 1. Acute Bronchitis vs. Asthma Exacerbation - patient on azithromycin 500mg
--- NOTE | 2016-07-06 10:57 | Cons- Pulmonary ---
General Information and HPI Consulting Request Date of Consult: 07/06/16 Requested By: [place] Reason for Consult: Exacerbation of COPD History of Present Illness: Visit 50-year-old female who is actively smoking up to 5 days ago was admitted with increasing cough and wheezing shortness of breath. She presented with body aches cough productive of yellow sputum without fever or chills and increased shortness of breath. In the emergency room she was hypoxic chest x-ray has not shown any pulmonary infiltrates. She's been treated with nebulized bronchodilators and IV steroids and azithromycin with slow improvement. She continues to have evidence of bronchospasm. Review of her home environment shows her to have a pet bird to which she denies allergy Allergies/Medications Allergies: Coded Allergies: Penicillins (Intermediate, RASH 07/02/16) Home Med List: Albuterol Sulfate (Proventil Hfa) 6.7 GM HFA.AER.AD 1-2 PUFF INH Q6P PRN SOB Olanzapine 10 MG TABLET 1 TAB PO QPM DEPRESSION (Reported) Review of Systems Review of Systems Constitutional: Denies: chills, fever. Cardiovascular: Denies: chest pain. Respiratory: Reports: cough, short of breath, sputum production, wheezing. GI: Denies: abdominal pain, diarrhea, melena. Past History Travel History Traveled to [place] past 21 day No Medical History Neurological: NONE EENT: NONE Cardiovascular: NONE Respiratory: asthma Gastrointestinal: NONE Hepatic: NONE Renal: NONE Musculoskeletal: NONE Psychiatric: NONE Endocrine: NONE Blood Disorders: NONE Cancer(s): NONE PHARMACIST INTERN/Reproductive: NONE Surgical History Surgical History: non-contributory Psychosocial History Where Do You Live? Home Who Do You Live With? spouse Primary Language: Luxembourgish Smoking Status: Current Everyday Smoker ETOH Use: quit 15 yrs ago Illicit Drug Use: denies illicit drug use Functional Ability ADLs Independent: dressing, eating, toileting, bathing. Ambulation: independent IADLs Independent: shopping, housework, finances, food prep, telephone, transportation , medication admin. Exam & Diagnostic Data Last 24 Hrs of Vital Signs/I&O Vital Signs Date Time Temp Pulse Resp B/P Pulse O2 O2 Flow FiO2 Ox Delivery Rate 07/06 837 92 Nasal 1.0L Cannula 07/06 824 97.7 76 20 128/56 92 Nasal 2.0L Cannula 07/06 0233 97.8 88 18 124/66 96 Nasal Cannula 07/06 0000 Nasal 3.0L Cannula 07/05 1729 Nasal 3.0L Cannula 07/05 1603 92 Nasal 3.0L Cannula 07/05 1535 98.4 102 22 149/53 90 Nasal 2.0L Cannula Intake & Output 07/06 1600 07/06 0800 07/06 0000 Intake Total 400 Output Total Balance 400 Intake, Oral 400 Oxygen saturation is improved from 3 L to 1 L with saturation 92% HEENT exam shows no adenopathy exam for chest shows diffuse bilateral wheezing cardiac exam shows regular S1 and S2 without murmurs abdominal exam is soft nontender and she has no edema Last 48 Hrs of Labs/Kameron: Laboratory Tests 07/06/16 0620: Anion Gap 11, Estimated GFR > 60, BUN/Creatinine Ratio 31.4 H, CBC w Diff NO MAN DIFF REQ, RBC 4.99, MCV 88.2, MCH 29.4, RDW 13.8, MPV 9.2, Gran % 86.2 H, Lymphocytes % 8.3 L, Monocytes % 5.4, Eosinophils % 0, Basophils % 0.1, Absolute Granulocytes 9.9 H, Absolute Lymphocytes 1.0 L, Absolute Monocytes 0.6, Absolute Eosinophils 0, Absolute Basophils 0, PUBS MCHC 33.3 07/05/16 0640: CBC w Diff MAN DIFF ORDERED, RBC 5.11, MCV 88.8, MCH 29.3, RDW 14.0, MPV 9.5, Gran % 91.6 H, Lymphocytes % 5.6 L, Monocytes % 2.4, Eosinophils % 0.1, Basophils % 0.3, Absolute Granulocytes 12.3 H, Segmented Neutrophils 85 H, Band Neutrophils 7 H, Absolute Lymphocytes 0.8 L, Lymphocytes 6 L, Monocytes 2, Absolute Monocytes 0.3, Absolute Eosinophils 0, Absolute Basophils 0, Platelet Estimate ADEQUATE, Normocytic RBCs VERIFIED, Normochromic RBCs VERIFIED , PUBS MCHC 33.0 Assessment/Plan Impression/Plan: 50-year-old with greater than 11-nyyf-pwpy smoking history who is actively smoking admitted with bronchospasm hypoxic respiratory failure and has continued oxygen requirements and wheezing. Her presentation represents exacerbation of COPD which is slow to resolve likely related to her ongoing cigarette smoking. Recommendations: Increase Solu-Medrol every 6 hours. Continue pulmonary toilet and nebulized bronchodilators. Patient may require transient low-flow oxygen at discharge. Outpatient pulmonary function tests will be obtained. Consult Acknowledgment - Thank you for your consult request.
--- NOTE | 2016-07-06 12:41 | PN- Cardiology ---
Subjective Subjective: Patient still with the dyspnea/wheezing. Denies chest pain or palpitations. Objective Vital Signs and I&Os Vital Signs Date Time Temp Pulse Resp B/P Pulse O2 O2 Flow FiO2 Ox Delivery Rate 07/06 1108 92 Nasal 1.0L Cannula 07/06 0738 92 Nasal 1.0L Cannula 07/06 824 97.7 76 20 128/56 92 Nasal 2.0L Cannula 07/06 0233 97.8 88 18 124/66 96 Nasal Cannula 07/06 0000 Nasal 3.0L Cannula 07/05 1729 Nasal 3.0L Cannula 07/05 1603 92 Nasal 3.0L Cannula 07/05 1535 98.4 102 22 149/53 90 Nasal 2.0L Cannula Intake & Output 07/06 1600 07/06 0800 07/06 0000 07/05 1600 07/05 0807/05 0000 Intake Total 400 480 770 Output Total Balance 400 480 770 Intake, IV 20 Intake, Oral 400 480 750 Number 0 Bowel Movements Physical Exam: General: no apparent distress. Alert. On nasal cannula oxygen. Eyes: No obvious scleral icterus. HEENT: No jugular venous distention or abnormal jugular venous pulsations. Cardiovascular: Normal intensity S1/S2. PMI not grossly displaced. Respiratory: Bilateral wheezes noted Abdomen: Soft, nontender with no guarding or rebound tenderness. Musculoskeletal: No clubbing or cyanosis noted Skin: No obvious rashes or ulcerations., No edema Neurologic: No gross focal deficits noted. Lymph: No gross lymphadenopathy. Current Medications: Current Medications Sig/Rosalina Start time Last Medication Dose Route Stop Time Status Admin Acetaminophen 650 MG Q6P PRN 07/02 1545 AC 07/03 PO 0430 Albuterol Sulfate 3 ML EVERY 4 HRS/AWAKE 07/02 1999 AC 07/06 INH 1154 Azithromycin 250 MG DAILY 07/03 1000 DC 07/06 PO 0959 Benzonatate 100 MG TID 07/02 1600 AC 07/06 PO 1000 Enoxaparin Sodium 40 MG DAILY 07/02 1436 AC 07/06 SC 1000 Guaifenesin 10 ML .STK-MED ONE 07/06 0226 DC PO 07/06 0227 Guaifenesin 10 ML .STK-MED ONE 07/05 1641 DC PO 07/05 1642 Guaifenesin 10 ML .STK-MED ONE 07/05 1447 DC PO 07/05 1448 Guaifenesin/ 10 ML Q6P PRN 07/02 2315 AC 07/06 Dextromethorphan PO 1003 Insulin Aspart 0 TIDAC 07/02 1700 AC 07/05 SC 1651 Ipratropium [place] 2.5 ML EVERY 4 HRS/AWAKE 07/02 1999 AC 07/06 INH 1154 Melatonin 5 MG AT BEDTIME 07/02 2199 AC 07/05 PO 210 Methylprednisolone 40 MG Q8 07/02 220 AC 07/06 IV 0606 Morphine Sulfate 2 MG Q8P PRN 07/02 1545 AC IV Nicotine 21 MG DAILY 07/02 1445 AC 07/06 TOP 0959 Olanzapine 10 MG QPM 07/02 220 AC 07/05 PO 2102 Oxycodone/ 1 TAB Q4P PRN 07/04 1700 AC 07/06 Acetaminophen PO 1003 Results Last 48 Hrs of Labs/Mics: Laboratory Tests 07/06/16 0620: Anion Gap 11, Estimated GFR > 60, BUN/Creatinine Ratio 31.4 H, CBC w Diff NO MAN DIFF REQ, RBC 4.99, MCV 88.2, MCH 29.4, RDW 13.8, MPV 9.2, Gran % 86.2 H, Lymphocytes % 8.3 L, Monocytes % 5.4, Eosinophils % 0, Basophils % 0.1, Absolute Granulocytes 9.9 H, Absolute Lymphocytes 1.0 L, Absolute Monocytes 0.6, Absolute Eosinophils 0, Absolute Basophils 0, PUBS MCHC 33.3 07/05/16 0640: CBC w Diff MAN DIFF ORDERED, RBC 5.11, MCV 88.8, MCH 29.3, RDW 14.0, MPV 9.5, Gran % 91.6 H, Lymphocytes % 5.6 L, Monocytes % 2.4, Eosinophils % 0.1, Basophils % 0.3, Absolute Granulocytes 12.3 H, Segmented Neutrophils 85 H, Band Neutrophils 7 H, Absolute Lymphocytes 0.8 L, Lymphocytes 6 L, Monocytes 2, Absolute Monocytes 0.3, Absolute Eosinophils 0, Absolute Basophils 0, Platelet Estimate ADEQUATE, Normocytic RBCs VERIFIED, Normochromic RBCs VERIFIED , PUBS MCHC 33.0 Recent Imaging Studies: Telemetry tracings were personally reviewed and shows sinus rhythm Echocardiogram CONCLUSIONS Normal left and right ventricular systolic function. No significant valvular abnormalities. Assessment/Plan Assessment/Plan 1. Acute bronchitis with likely new onset COPD exacerbation 2. Extensive the history of cigarette smoking 3. History of Edskw-Bjptxxjls-Mpqdv syndrome diagnosed 15 years ago not requiring ablation No evidence of arrhythmias on telemetry and Echo was grossly normal. Still bronchospastic on exam, Pulmonary following. Cardiac status stable, will sign off and she can follow with me in my office after discharge. Please do not hesitate to contact me with any questions or concerns. Douglas White MD [facility] Continue telemetry? No
[2016-07-06 15:55] VITALS: BP 145/71
[2016-07-06 22:22] VITALS: BP 130/58
--- NOTE | 2016-07-07 07:21 | PN- Housestaff ---
NISHA FRANCO 07/07/16 0721: Subjective Follow-up For: 1. Possible COPD exacerbation 2. Acute hypoxic respiratory failure 3. Diabetes mellitus 4. EKG changes-diffuse ST depressions on admission Complaints: pain scale (0-10) Tele-Events Since Last Visit: not on monitor now Subjective: Patient was seen and examined this morning. She is alert, awake and oriented to time place and person. No acute overnight events noticed. She is having shortness of breath on exertion, cough, white colored sputum production. Associated with wheezing. Denied any fever, chills. She denied any chest pain this morning. Denied racing of heart, hemoptysis, headache, dizziness or lightheadedness. Denied nausea, vomiting, abdominal pain, change in bladder or bowel habits. Vitals were stable, heart rate 100, respiratory rate 20, blood pressure 130/66, saturating at 92% on 2 L oxygen this morning. Review of Systems Constitutional: Denies: see HPI. Objective Last 24 Hrs of Vital Signs/I&O Vital Signs Date Time Temp Pulse Resp B/P Pulse O2 O2 Flow FiO2 Ox Delivery Rate 07/07 0852 91 Nasal 1.0L Cannula 07/07 0841 91 Nasal 1.0L Cannula 07/07 0822 97.9 88 24 102/72 89 Nasal 1.0L Cannula 07/07 0000 92 Nasal 1.0L Cannula 07/06 2222 97.5 100 24 130/58 92 Nasal 1.0L Cannula 07/06 2000 92 Nasal 1.0L Cannula 07/06 1636 88 Room Air Room Air 07/06 1555 98.1 103 18 145/71 90 Room Air Intake & Output 07/07 1600 07/07 0800 07/07 0000 Intake Total 400 Output Total Balance 400 Intake, Oral 400 Patient 74.843 kg Weight Physical Exam General Appearance: Alert, Oriented X3, Cooperative, No Acute Distress Skin: No Rashes HEENT: Atraumatic, Mucous Membr. moist/pink Neck: Supple, No JVD Lymphatic: Cervical nl Cardiovascular: Normal S1, Normal S2, No Murmurs Lungs: Normal Air Movement, bilateral wheezing Abdomen: Normal Bowel Sounds, Soft, No Tenderness Extremities: No Clubbing, No Cyanosis, No Edema Vascular: Normal Pulses Current Medications: Current Medications Sig/Rosalina Start time Last Medication Dose Route Stop Time Status Admin Acetaminophen 650 MG Q6P PRN 07/02 1545 AC 07/03 PO 0430 Albuterol Sulfate 3 ML EVERY 4 HRS/AWAKE 07/02 1999 AC 07/07 INH 1121 Benzonatate 100 MG TID 07/02 1600 AC 07/07 PO 1013 Calcium Carbonate 500 MG ONCE ONE 07/06 2345 DC 07/06 PO 07/06 2346 2342 Enoxaparin Sodium 40 MG DAILY 07/02 1436 AC 07/07 SC 1013 Guaifenesin/ 10 ML Q6P PRN 07/02 2315 AC 07/06 Dextromethorphan PO 2305 Insulin Aspart 0 TIDAC 07/02 1700 AC 07/06 SC 1727 Ipratropium [place] 2.5 ML EVERY 4 HRS/AWAKE 07/02 1999 AC 07/07 INH 1121 Melatonin 5 MG AT BEDTIME 07/02 2200 AC 07/06 PO 2304 Methylprednisolone 40 MG Q8 07/07 1400 AC IV 07/07 2201 Methylprednisolone 40 MG Q6 07/06 1800 DC 07/07 IV 0559 Morphine Sulfate 2 MG Q8P PRN 07/02 1545 AC IV Nicotine 21 MG DAILY 07/02 1445 AC 07/07 TOP 1013 Olanzapine 10 MG QPM 07/02 2200 AC 07/06 PO 2304 Oxycodone/ 1 TAB Q4P PRN 07/04 1700 AC 07/07 Acetaminophen PO 1013 Prednisone 40 MG DAILY 07/08 1000 AC PO Assessment/Plan Assessment: This is a 50-year-old female with past medical history of asthma, 40 year smoking history, diabetes mellitus, WPW syndrome, depression presented to emergency department with chief complaint of shortness of breath on exertion, cough, green colored sputum production, chest tightness, wheezing, pleuritic chest pain for 3 days. Also had generalized weakness and fatigue. Vitals on admission-afebrile, tachycardic 126, respiratory rate 34, blood pressure 120/60, saturating at 92% on room air. Pertinent labs on admission CBC normal, BEP normal, LFTs normal, thyroid function tests normal. Troponin negative. EKG showed sinus tachycardia rate 108, ST depressions diffuse in V3, V4, V5, V6. Chest x-ray showed bronchial wall thickening with small airway process suggestive of asthma. Problem list 1. Possible COPD exacerbation 2. Acute hypoxic respiratory failure 3. Diabetes mellitus 4. EKG changes-diffuse ST depressions on admisssion. Possible COPD exacerbation Patient presented with worsening shortness of breath, cough, sputum production green color, chest tightness, worsening of wheezing. Of note she is a smoker for 40 years- 1 pack per day. Chest x-ray showed bronchial wall thickening suggestive of asthma. * Admitted to telemetry floor for further monitoring * Possible COPD exacerbation versus asthma exacerbation * Maintain oxygen saturation above 92% * Monitor vitals every shift * Provide supplemental oxygen if necessary * Methylprednisone 40 every 8 hours today. Will start oral prednisone tapering from tomorrow. * Oral azithromycin 250 mg- day5. Completed 5 day course of antibiotics. * Continue inhalers albuterol * Follow-up sputum cultures, blood cultures- neg so far * Lab urine Legionella and streptococcal antigen * Total respiratory care * Still wheezing and requiring oxygen. * Plan is to discharge her tomorrow on home oxygen Acute hypoxic respiratory failure Patient presented with worsening shortness of breath on exertion. Tachycardic and tachypneic on admission. Requiring oxygen through nasal cannula. Of note patient is not on oxygen at home. POSSIBLY from COPD exacerbation versus asthma exacerbation versus acute bronchitis * Provide supplemental oxygen * Maintain oxygen saturation ABOVE 92% * Total respiratory care History of asthma Currently, the symptoms that she describes fits more to COPD versus asthma. She never had pulmonary function test to differentiate among these two. She takes Proventil every day (even if she does not have any symptoms) and says that she has not had any asthma attacks for a long period of time. * Currently being managed as outlined above * [employer] was consulted. Dr. Jordan on board * Needs an outpatient pulmonary function tests. * Referral was provided History of Zkiex-Umwhwrefq-Gbbgi syndrome Patient mentioned that she has history of Djkdz-Ytxujzaek-Isdij syndrome, which was diagnosed 20 years ago, but has not had any ablative procedures, as she does not have any garment looper or PCP. (She visits [facility] for her mental health issues). PLEASE DO NOT GIVE ANY AV-LEANDRA BLOCKING AGENT, EVEN IF TACHYCARDIAC, due to WPW SYNDROME. Depression -Continue home medication Zyprexa #Nicotine dependence -Patient now on nicotine patch. Smoking cessation counseling given. Diabetes mellitus Accu-Cheks NovoLog sliding scale Diffuse st depressions on admission EKG showed sinus tachycardia, rate 108, ST depressions in V3, V4, V5, V6 on admission Troponins were negative. Ruled out acute coronary syndrome Underground Heavy Equipment Operator was consulted Patient is asymptomatic denied any chest pain, palpitations, sweating, diaphoresis. Patient is in normal sinus rhythm. ECHO- Normal left and right ventricular systolic function. No significant valvular abnormalities. #Diet: Regular diet Lovenox for DVT prophylaxis full code Problem List: 1. Acute hypoxemic respiratory failure 2. Asthma Pain Ratin Pain Location: none Pain Goal: Remain pain free Pain Plan: tylinol Tomorrow's Labs & Rationales: none Consulting Request: Consulting Specialty: Cardiology TAI LOYOLA MD 07/07/16 0951: Attending MD Review Statement Attending Statement Attending MD Statement: examined this patient, discuss w/resident/PA/RUNNER MAN, agreed w/resident/PA/RUNNER MAN, reviewed EMR data (avail), discussed with nursing Attending Assessment/Plan: Appreciate pulmonary follow-up. Patient is still actively wheezing. The plan is to taper the IV steroids today with the hope of switching her to by mouth prednisone tomorrow. She will likely need home oxygen on discharge for COPD. Tobacco cessation counseling and she needs outpatient cardiology follow-up for her WPW.
--- NOTE | 2016-07-07 08:17 | PN- Pulmonary ---
Subjective HPI/Critical Care Issues: Patient shortness of breath appears improved. She desaturates with ambulation pressure requirements have decreased Objective Current Medications: Current Medications Sig/Rosalina Start time Last Medication Dose Route Stop Time Status Admin Acetaminophen 650 MG Q6P PRN 07/02 1545 AC 07/03 PO 0430 Albuterol Sulfate 3 ML EVERY 4 HRS/AWAKE 07/02 1999 AC 07/06 INH 2056 Azithromycin 250 MG DAILY 07/03 1000 DC 07/06 PO 0959 Benzonatate 100 MG TID 07/02 1600 AC 07/06 PO 2305 Calcium Carbonate 500 MG ONCE ONE 07/06 2345 DC 07/06 PO 07/06 2346 2342 Enoxaparin Sodium 40 MG DAILY 07/02 1436 AC 07/06 SC 1000 Guaifenesin/ 10 ML Q6P PRN 07/02 2315 AC 07/06 Dextromethorphan PO 2305 Insulin Aspart 0 TIDAC 07/02 1700 AC 07/06 SC 1727 Ipratropium [place] 2.5 ML EVERY 4 HRS/AWAKE 07/02 1999 AC 07/06 INH 2056 Melatonin 5 MG AT BEDTIME 07/02 2200 AC 07/06 PO 2304 Methylprednisolone 40 MG Q6 07/06 1800 AC 07/07 IV 0559 Methylprednisolone 40 MG Q8 07/02 2200 DC 07/06 IV 1243 Morphine Sulfate 2 MG Q8P PRN 07/02 1545 AC IV Nicotine 21 MG DAILY 07/02 1445 AC 07/06 TOP 0959 Olanzapine 10 MG QPM 07/02 2200 AC 07/06 PO 2304 Oxycodone/ 1 TAB Q4P PRN 07/04 1700 AC 07/07 Acetaminophen PO 0559 Vital Signs & I&O Last 24 Hrs of Vitals and I&O: Vital Signs Date Time Temp Pulse Resp B/P Pulse O2 O2 Flow FiO2 Ox Delivery Rate 07/07 0000 92 Nasal 1.0L Cannula 07/06 2221 97.5 100 24 130/58 92 Nasal 1.0L Cannula 07/06 1999 92 Nasal 1.0L Cannula 07/06 1636 88 Room Air Room Air 07/06 1555 98.1 103 18 145/71 90 Room Air 07/06 1108 92 Nasal 1.0L Cannula 07/06 837 92 Nasal 1.0L Cannula 07/06 824 97.7 76 20 128/56 92 Nasal 2.0L Cannula Intake & Output 07/07 1600 07/07 0800 07/07 0000 Intake Total 400 Output Total Balance 400 Intake, Oral 400 Oxygen saturation on 1 L is 92% exam for chest shows decreased wheezes cardiac exam shows regular S1 and S2 without murmurs Impression/Plan Impression/Plan Impression/Plan: 50-year-old with greater than [id number] smoking history who is actively smoking admitted with bronchospasm hypoxic respiratory failure and has continued oxygen requirements and wheezing. Her presentation represents exacerbation of COPD which is slow to resolve likely related to her ongoing cigarette smoking. Respiratory status is slowly improving however she continues to require supplemental oxygen Recommendations: Decrease Solu-Medrol to every 8 hours today with the expectation of oral prednisone tomorrow. Attempt to wean oxygen however she will likely need supplemental oxygen on discharge with outpatient follow-up. Would hope that she will be able to be discharged tomorrow outpatient follow-up and pulmonary function testing
[2016-07-07 08:22] VITALS: BP 102/72
[2016-07-07] MEDS ORDERED: IPRATROPIU0.2 MG/1 M INH (09:26)
[2016-07-07] MEDS ORDERED: PREDNISONE10 M2 PO (09:30)
--- NOTE | 2016-07-07 10:39 | NUR ---
PT ROOM AIR AT REST 88 THEN ROOM AIR AFTER AMBULATION 86 PT ON 2L AT REST 92 THEN PT ON 2L AFTER AMBULATION 90 NORMA FROM CASE MGNT AWARE
[2016-07-07 16:18] VITALS: BP 130/72
[2016-07-07 23:31] VITALS: BP 102/70
--- NOTE | 2016-07-08 07:31 | PN- Housestaff ---
NISHA FRANCO 07/08/16 0731: Subjective Follow-up For: 1. Possible COPD exacerbation 2. Acute hypoxic respiratory failure 3. Diabetes mellitus 4. EKG changes-diffuse ST depressions on admission Complaints: pain scale (0-10) Tele-Events Since Last Visit: not on monitor now Subjective: Patient was seen and examined this morning. She is alert, awake and oriented to time place and person. No acute overnight events noticed. She is having shortness of breath on exertion, MILD cough. denies any sputum production. Associated with wheezing. Denied any fever, chills. She denied any chest pain this morning. Denied racing of heart, hemoptysis, headache, dizziness or lightheadedness. Denied nausea, vomiting, abdominal pain, change in bladder or bowel habits. Vitals were stable, heart rate 82, respiratory rate 20, blood pressure 102/70, saturating at 93% on 1.5L oxygen this morning. Review of Systems Constitutional: Denies: see HPI. Objective Last 24 Hrs of Vital Signs/I&O Vital Signs Date Time Temp Pulse Resp B/P Pulse O2 O2 Flow FiO2 Ox Delivery Rate 07/08 0813 89 Nasal 1.5L Cannula 07/08 0804 98.3 64 20 104/64 89 Nasal 1.5L Cannula 07/08 0800 92 Nasal 2.0L Cannula 07/08 0000 Nasal 1.5L Cannula 07/07 2331 97.9 82 20 102/70 93 Nasal Cannula 07/07 1620 88 Nasal 1.0L Cannula 07/07 1618 98.2 92 24 130/72 90 Nasal 1.0L Cannula 07/07 1600 Nasal 1.5L Cannula Intake & Output 07/08 1600 07/08 0800 07/08 0000 Intake Total 100 730 Output Total Balance 100 730 Intake, IV 10 Intake, Oral 100 720 Physical Exam General Appearance: Alert, Oriented X3, Cooperative, No Acute Distress Skin: No Rashes, No Breakdown HEENT: Atraumatic, Mucous Membr. moist/pink Neck: Supple, No JVD Lymphatic: Cervical nl Cardiovascular: Normal S1, Normal S2 Lungs: Normal Air Movement, wheezes b/l Abdomen: Normal Bowel Sounds, Soft, No Tenderness Extremities: No Clubbing, No Cyanosis, No Edema Vascular: Normal Pulses Current Medications: Current Medications Sig/Rosalina Start time Last Medication Dose Route Stop Time Status Admin Acetaminophen 650 MG Q6P PRN 07/02 1545 DCD 07/03 PO 0430 Albuterol Sulfate 3 ML EVERY 4 HRS/AWAKE 07/02 1999 TXD 07/08 INH 1217 Benzonatate 100 MG TID 07/02 1600 DCD 07/08 PO 0814 Calcium Carbonate 500 MG ONE TIME ONE 07/08 0330 DC 07/08 PO 07/08 0331 0401 Calcium Carbonate 500 MG DAILY 07/07 1809 DCD 07/07 PO 1814 Enoxaparin Sodium 40 MG DAILY 07/02 1436 DCD 07/08 SC 0815 Guaifenesin 10 ML .STK-MED ONE 07/08 0231 DC PO 07/08 0232 Guaifenesin/ 10 ML Q6P PRN 07/02 2315 TXD 07/08 Dextromethorphan PO 0239 Insulin Aspart 0 TIDAC 07/02 1700 TXD 07/07 SC 1710 Ipratropium [place] 2.5 ML EVERY 4 HRS/AWAKE 07/02 1999 [facility] 07/08 INH 1217 Melatonin 5 MG AT BEDTIME 07/02 2200 DCD 07/07 PO 2157 Methylprednisolone 40 MG Q8 07/07 1400 DC 07/07 IV 07/07 2201 2157 Morphine Sulfate 2 MG Q8P PRN 07/02 1545 TXD IV Nicotine 21 MG DAILY 07/02 1445 TXD 07/08 TOP 0816 Olanzapine 10 MG QPM 07/02 2200 DCD 07/07 PO 2157 Oxycodone/ 1 TAB Q4P PRN 07/04 1700 TXD 07/08 Acetaminophen PO 0840 Patient Medication 1 ED .STK-MED ONE 07/07 1359 TX Teaching ED 07/07 1400 Prednisone 40 MG DAILY 07/08 1000 DCD 07/08 PO 0814 Assessment/Plan Assessment: This is a 50-year-old female with past medical history of asthma, 40 year smoking history, diabetes mellitus, WPW syndrome, depression presented to emergency department with chief complaint of shortness of breath on exertion, cough, green colored sputum production, chest tightness, wheezing, pleuritic chest pain for 3 days. Also had generalized weakness and fatigue. Vitals on admission-afebrile, tachycardic 126, respiratory rate 34, blood pressure 120/60, saturating at 92% on room air. Pertinent labs on admission CBC normal, BEP normal, LFTs normal, thyroid function tests normal. Troponin negative. EKG showed sinus tachycardia rate 108, ST depressions diffuse in V3, V4, V5, V6. Chest x-ray showed bronchial wall thickening with small airway process suggestive of asthma. Problem list 1. Possible COPD exacerbation 2. Acute hypoxic respiratory failure 3. Diabetes mellitus 4. EKG changes-diffuse ST depressions on admisssion. Possible COPD exacerbation Patient presented with worsening shortness of breath, cough, sputum production green color, chest tightness, worsening of wheezing. Of note she is a smoker for 40 years- 1 pack per day. Chest x-ray showed bronchial wall thickening suggestive of asthma. * Admitted to telemetry floor for further monitoring * Possible COPD exacerbation versus asthma exacerbation * Maintain oxygen saturation above 92% * Monitor vitals every shift * Provide supplemental oxygen if necessary * stopped iv steroids today. * started oral prednisone tapering 40x3,30x3,20x3,10x3. * Completed 5 day course of antibiotics. * Continue inhalers albuterol * Follow-up sputum cultures, blood cultures- neg so far * Lab urine Legionella and streptococcal antigen * Total respiratory care * Still wheezing and requiring oxygen. * Plan is to discharge her today on home oxygen2/, labuterol, ipratopium and symbicort. Acute hypoxic respiratory failure Patient presented with worsening shortness of breath on exertion. Tachycardic and tachypneic on admission. Requiring oxygen through nasal cannula. Of note patient is not on oxygen at home. POSSIBLY from COPD exacerbation versus asthma exacerbation versus acute bronchitis * Provide supplemental oxygen * Maintain oxygen saturation ABOVE 92% * Total respiratory care History of asthma Currently, the symptoms that she describes fits more to COPD versus asthma. She never had pulmonary function test to differentiate among these two. She takes Proventil every day (even if she does not have any symptoms) and says that she has not had any asthma attacks for a long period of time. * Currently being managed as outlined above * [facility] Weigher was consulted. Dr. Jordan on board * Needs an outpatient pulmonary function tests. * Referral was provided History of Nmfgp-Qqaahwzgv-Tlwel syndrome Patient mentioned that she has history of Sukcq-Uqvocmuus-Wnemx syndrome, which was diagnosed 20 years ago, but has not had any ablative procedures, as she does not have any agile scrum coach or PCP. (She visits [facility] for her mental health issues). PLEASE DO NOT GIVE ANY AV-LEANDRA BLOCKING AGENT, EVEN IF TACHYCARDIAC, due to WPW SYNDROME. Depression -Continue home medication Zyprexa #Nicotine dependence -Patient now on nicotine patch. Smoking cessation counseling given. Diabetes mellitus Accu-Cheks NovoLog sliding scale Diffuse st depressions on admission EKG showed sinus tachycardia, rate 108, ST depressions in V3, V4, V5, V6 on admission Troponins were negative. Ruled out acute coronary syndrome Data Center Operator was consulted Patient is asymptomatic denied any chest pain, palpitations, sweating, diaphoresis. Patient is in normal sinus rhythm. ECHO- Normal left and right ventricular systolic function. No significant valvular abnormalities. #Diet: Regular diet Lovenox for DVT prophylaxis full code Problem List: 1. Bronchitis 2. Asthma Pain Ratin Pain Location: none Pain Goal: Remain pain free Pain Plan: tylinol Tomorrow's Labs & Rationales: none Consulting Request: Consulting Specialty: Cardiology NIR LOZANO,TAI 07/08/16 0951: Attending MD Review Statement Attending Statement Attending MD Statement: examined this patient, discuss w/resident/PA/BURLESQUE DANCER, agreed w/resident/PA/BURLESQUE DANCER, reviewed EMR data (avail), discussed with nursing, discussed with case mgmt Attending Assessment/Plan: Patient feels okay and is eager to go home today. I explained at length the need for tobacco cessation, the need for the nebulizer therapy, and close follow -up with Dr. Meadows and Edgar White MD. She is a 50-year-old with underlying COPD, WPW syndrome and is here with a COPD exacerbation. She has a nebulizer machine at home and is going to go on the ipratropium and albuterol nebs. We've prescribed her Symbicort inhaler with a slow prednisone taper and outpatient follow-up.
[2016-07-08 08:04] VITALS: BP 104/64
--- NOTE | 2016-07-08 08:16 | PN- Pulmonary ---
Subjective HPI/Critical Care Issues: Patient feels improved with diminished shortness of breath but continues to require low-flow oxygen Objective Current Medications: Current Medications Sig/Rosalina Start time Last Medication Dose Route Stop Time Status Admin Acetaminophen 650 MG Q6P PRN 07/02 1545 AC 07/03 PO 0430 Albuterol Sulfate 3 ML EVERY 4 HRS/AWAKE 07/02 1999 AC 07/08 INH 0811 Benzonatate 100 MG TID 07/02 1600 AC 07/07 PO 2157 Calcium Carbonate 500 MG ONE TIME ONE 07/08 0330 DC 07/08 PO 07/08 0331 0401 Calcium Carbonate 500 MG DAILY 07/07 1809 AC 07/07 PO 1814 Enoxaparin Sodium 40 MG DAILY 07/02 1436 AC 07/07 SC 1013 Guaifenesin 10 ML .STK-MED ONE 07/07 1009 DC PO 07/07 1010 Guaifenesin/ 10 ML Q6P PRN 07/02 2315 AC 07/08 Dextromethorphan PO 0239 Insulin Aspart 0 TIDAC 07/02 1700 AC 07/07 SC 1710 Ipratropium [place] 2.5 ML EVERY 4 HRS/AWAKE 07/02 1999 AC 07/08 INH 0811 Melatonin 5 MG AT BEDTIME 07/02 2200 AC 07/07 PO 2157 Methylprednisolone 40 MG Q8 07/07 1400 DC 07/07 IV 07/07 220 2157 Methylprednisolone 40 MG Q6 07/06 1800 DC 07/07 IV 0559 Morphine Sulfate 2 MG Q8P PRN 07/02 1545 AC IV Nicotine 21 MG DAILY 07/02 1445 AC 07/07 TOP 1013 Olanzapine 10 MG QPM 07/02 2200 AC 07/07 PO 2157 Oxycodone/ 1 TAB Q4P PRN 07/04 1700 AC 07/08 Acetaminophen PO 0237 Patient Medication 1 ED .STK-MED ONE 07/07 1359 DC Teaching ED 07/07 1400 Prednisone 40 MG DAILY 07/08 1000 AC PO Vital Signs & I&O Last 24 Hrs of Vitals and I&O: Vital Signs Date Time Temp Pulse Resp B/P Pulse O2 O2 Flow FiO2 Ox Delivery Rate 07/08 08 98.3 64 20 104/64 89 Nasal 1.5L Cannula 07/08 0000 Nasal 1.5L Cannula 07/07 2331 97.9 82 20 102/70 93 Nasal Cannula 07/07 1620 88 Nasal 1.0L Cannula 07/07 1618 98.2 92 24 130/72 90 Nasal 1.0L Cannula 07/07 1600 Nasal 1.5L Cannula 07/07 0852 91 Nasal 1.0L Cannula 07/07 0841 91 Nasal 1.0L Cannula 07/07 0822 97.9 88 24 102/72 89 Nasal 1.0L Cannula Intake & Output 07/08 1600 07/08 0800 07/08 0000 Intake Total 100 730 Output Total Balance 100 730 Intake, IV 10 Intake, Oral 100 720 Oxygen saturation 1.5 L 89% exam for chest shows diminished wheezing cardiac exam shows normal S1 and S2 without murmurs Impression/Plan Impression/Plan Impression/Plan: 50-year-old with greater than [id number] smoking history who is actively smoking admitted with bronchospasm hypoxic respiratory failure and has continued oxygen requirements and wheezing. Her presentation represents exacerbation of COPD which is slow to resolve likely related to her ongoing cigarette smoking. Respiratory status is slowly improving however she continues to require supplemental oxygen Recommendations: Patient's respiratory status is slowly improving recommend slow prednisone taper discharge on low-flow oxygen with follow-up in my office next week discharge on inhaled steroid long-acting bronchodilator combination in conjunction with ipratropium
[2016-07-08] MEDS ORDERED: SYMBICORT 16010.2 GM INH (09:01)
[2016-07-08] MEDS ORDERED: ALBUTEROL1.25 MG/1 INH/SOL (09:20)
[2016-07-08] MEDS ORDERED: PERCOCET 10-321 EACH PO (09:20)
== END 2016-07-08 12:45 | DRG 140 ==
LOC: ERH 11:00 → 1NO 14:35 → ENPENDDIS 14:35 → ERHI 14:35 → 1NO 07-03 21:06
PROVIDERS: Internal Medicine; Physician Assistant; Student in an Organized Health Care Education/Training Program; ADMIT Internal Medicine
DX: J44.1 Chronic obstructive pulmonary disease with (acute) exacerbation (principal); J96.01 Acute respiratory failure with hypoxia; J20.9 Acute bronchitis, unspecified; F17.210 Nicotine dependence, cigarettes, uncomplicated; I45.6 Pre-excitation syndrome; J45.909 Unspecified asthma, uncomplicated
CPT/HCPCS: 1NP; ERO; 82436; 87070; 87804; 87804-59; 93005; 93010; 93306; 96374; 96375; 99291; J0456; J1650; J2920; J2930; J7040

== ENCOUNTER 2016-08-19 12:53 | Emergency (ER) | payer OTHER ==
[~2016-08-19] VITALS: Ht 172.7 cm; Wt 72.6 kg
[~2016-08-19 12:53] MED LIST changes: +ALBUTEROL1.25 MG/1 INH/SOL; +GUAIFENESIN DM S5 ML PO; +IPRATROPIU0.2 MG/1 M INH; +NICOTINE PATCH1 EAC3 TOP; +OLANZAPINE10 M1 PO; +PERCOCET 10-321 EACH PO; +PREDNISONE10 M2 PO; +SYMBICORT 16010.2 GM INH
[2016-08-19 12:57] VITALS: BP 141/89
--- NOTE | 2016-08-19 13:35 | ED THROAT/DENTAL COMPLAINT ---
History of Present Illness General Chief Complaint: Sore Throat, Dental Pain Stated Complaint: MOUTH ABCESS Source: patient Exam Limitations: no limitations Vital Signs & Intake/Output Vital Signs & Intake/Output ED Intake and Output 08/20 0000 08/19 1200 Intake Total 0 Output Total Balance 0 Intake, Oral 0 Patient 160 lb Weight Allergies Coded Allergies: Penicillins (Intermediate, RASH 07/02/16) Reconcile Medications Albuterol Sulfate 1.25 MG/3 ML VIAL.NEB 1 Vial INH/WESLY TID PRN COPD Albuterol Sulfate (Proventil Hfa) 6.7 GM HFA.AER.AD 1-2 PUFF INH Q6P PRN SOB Budesonide/Formoterol Fumarate (Symbicort 160-4.5 Mcg Inhaler) 160 MCG-4.5 MCG/ ACTUATION HFA.AER.AD 2 PUF INH BID copd Clindamycin HCl (Cleocin HCl) 300 MG CAPSULE 1 CAP PO TID dental infection Guaifenesin/Dextromethorphan (Guaifenesin Dm Syrup) 100 MG-10 MG/5 ML SYRUP 10 ML PO Q6P PRN COUGH Hydrocodone/Acetaminophen (Hydrocodon-Acetaminophen 5-325) 5 MG-325 MG TABLET 1-2 TAB PO Q4-6 PRN PRN pain Ipratropium [place] 0.2 MG/ML (0.02 %) SOLUTION 2.5 ML INH EVERY 4 HRS/AWAKE COPD Nicotine (Nicotine Patch) 21 MG/24 HOUR PATCH.TD24 1 PAT TOP DAILY smoking cessation Olanzapine 10 MG TABLET 1 TAB PO QPM DEPRESSION (Reported) Oxycodone HCl/Acetaminophen (Percocet 10-325 MG Tablet) 10 MG-325 MG TABLET 1 TAB PO 4 TIMES/DAY PRN PAIN Prednisone 10 MG TABLET 1 TAB PO SI COPD TAKE 4TABLETS FOR 2DAYS TAKE 3TABLETS FOR 3DAYS TAKE 2TABLETS FOR 3DAYS TAKE 1TABLET FOR 3DAYS THEN STOP PREDNISONE. Triage Note: 51 Y/O FEMALE C/O ? ABCESS TO UPPER DENTITION X A "WHILE". STATES "IT POPPED" AND PUS CAME OUT. TOOK TYLENOL THIS AM WITH NO RELIEF. AFEBRILE. Triage Nurses Notes Reviewed? yes Onset: Abrupt Duration: day(s): Timing: recent history Injury Environment: home No Modifying Factors: none HPI: 51-year-old female comes into emergency room with complaints of right upper dental pain. Sharp. Continuous. Nonradiating. Pain radiates up into mild. Denies any other associated symptoms. Patient reports that there was an abscess there and it popped and started draining and she had an acid taste in her mouth. Denies any other associated symptoms currently. (MADALYN ROCA) Past History Travel History Traveled to [place] past 21 day No Medical History Any Pertinent Medical History? 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 No (MADALYN ROCA) Review of Systems Review of Systems Constitutional: Reports: see HPI. EENTM: Reports: see HPI. Respiratory: Reports: no symptoms. Cardiovascular: Reports: no symptoms. GI: Reports: no symptoms. Genitourinary: Reports: no symptoms. Musculoskeletal: Reports: no symptoms. Skin: Reports: no symptoms. Neurological/Psychological: Reports: no symptoms. Hematologic/Endocrine: Reports: no symptoms. Immunologic/Allergic: Reports: no symptoms. All Other Systems: Reviewed and Negative (MADALYN ROCA) Physical Exam Physical Exam General Appearance: well developed/nourished, no apparent distress, alert Head: atraumatic, normal appearance Eyes: Bilateral: normal appearance. Nose: normal inspection Mouth/Throat: pharynx normal, dental tenderness, coordination,cracked tooth, Neck: normal inspection, full range of motion Cardiovascular/Respiratory: no respiratory distress Back: normal inspection Neurologic/Psych: awake, alert, oriented x 3, normal gait Skin: intact, normal color Diagram Dental: 1) Core Measures ACS in differential dx? No Severe Sepsis Present: No Septic Shock Present: No (MDAALYN ROCA) Progress Differential Diagnosis: aspirated tooth, carious tooth, epiglottitis, Ludwigs angina, meningitis, odontogenic abscess, bri-tonsillar abscess, pharyngeal for. body, stomatitis/gingivitis, strep pharyngitis, tooth fracture Plan of Care: 08/19/2016 3:19:23 PM Follow-up with dentist. Return if any concerns worsening symptoms. Nothing drainable on exam. (MADALYN ROCA) Departure Departure Disposition: HOME OR SELF CARE Condition: Stable Clinical Impression Primary Impression: Dental infection Referrals: UNKNOWN (PCP/Family) Additional Instructions: Take clindamycin and Vicodin as prescribed. Follow-up with dentist. Return if any concerns worsening symptoms. Please go over all results of today's visit with your primary care doctor. Contact your primary care doctor to let them know you were here in the emergency room. There may be nonspecific findings which may not be related to your visit today here in the emergency room but may require further evaluation and chronic monitoring by your primary care doctor. If you had a laceration today the chance of foreign body always remains. You should follow-up with your primary care doctor for recheck in 3-5 days for a wound check. If you had an x-ray done there is a chance that a fracture could have been missed on initial read and you should follow-up with your primary care doctor for repeat x-rays if symptoms persist. If your blood pressure was elevated here in the emergency room please have rechecked by her primary care doctor within the next 48 hours by your primary care doctor. If you were prescribed a narcotic here in the emergency room or any type of controlled substances you're not allowed to drive while taking this medication or operate any type of heavy machinery. Narcotics can make you feel lightheaded dizziness nausea and can cause constipation. You may need to picking table worker a stool softener. Thank you for choosing [facility] emergency room. Please return to the emergency room immediately if you have any other concerns worsening of symptoms. Departure Forms: Customer Survey General Discharge Information Prescriptions: Current Visit Scripts Clindamycin HCl (Cleocin HCl) 1 CAP PO TID #30 CAP Hydrocodone/Acetaminophen (Hydrocodon-Acetaminophen 5-325) 1-2 TAB PO Q4-6 PRN PRN pain #20 TAB (MADALYN ROCA) PA/PLANT HEALTH MANAGER Co-Sign Statement Statement: ED Attending supervision documentation- [] I saw and evaluated the patient. I have also reviewed all the pertinent lab results and diagnostic results. I agree with the findings and the plan of care as documented in the PA's/PLANT HEALTH MANAGER's documentation. [x] I have reviewed the ED Record and agree with the PA's/PLANT HEALTH MANAGER's documentation. [] Additions or exceptions (if any) to the PAs/PLANT HEALTH MANAGER's note and plan are summarized below: [] (MINAL LOZANO,ABRAN)
[2016-08-19] MEDS ORDERED: HYDROCODON-ACE1 EAC2 PO (13:36)
[2016-08-19] MEDS ORDERED: CLEOCIN HCL300 M1 PO (13:36)
== END 2016-08-19 13:45 ==
LOC: ERH 12:53
DX: K04.7 Periapical abscess without sinus (principal)

== ENCOUNTER 2016-08-27 09:58 | Emergency (ER) | payer OTHER ==
[~2016-08-27] VITALS: Ht 172.7 cm; Wt 72.6 kg
[~2016-08-27 09:58] MED LIST changes: +CLEOCIN HCL300 M1 PO; +HYDROCODON-ACE1 EAC2 PO
[2016-08-27 10:03] VITALS: BP 127/80
--- NOTE | 2016-08-27 10:08 | ED GENERAL ADULT ---
History of Present Illness General Chief Complaint: General Adult Stated Complaint: MED REFILL Source: patient, family, old records Exam Limitations: no limitations Vital Signs & Intake/Output Vital Signs & Intake/Output Vital Signs Date Time Temp Pulse Resp B/P Pulse O2 O2 Flow FiO2 Ox Delivery Rate 08/27 1003 97.9 90 20 127/80 96 Room Air Allergies Coded Allergies: Penicillins (Intermediate, RASH 07/02/16) Reconcile Medications Albuterol Sulfate 1.25 MG/3 ML VIAL.NEB 1 Vial INH/WESLY TID PRN COPD Albuterol Sulfate (Proventil Hfa) 6.7 GM HFA.AER.AD 1-2 PUFF INH Q6P PRN SOB Budesonide/Formoterol Fumarate (Symbicort 160-4.5 Mcg Inhaler) 160 MCG-4.5 MCG/ ACTUATION HFA.AER.AD 2 PUF INH BID copd Clindamycin HCl (Cleocin HCl) 300 MG CAPSULE 1 CAP PO TID dental infection Guaifenesin/Dextromethorphan (Guaifenesin Dm Syrup) 100 MG-10 MG/5 ML SYRUP 10 ML PO Q6P PRN COUGH Hydrocodone/Acetaminophen (Hydrocodon-Acetaminophen 5-325) 5 MG-325 MG TABLET 1-2 TAB PO Q4-6 PRN PRN pain Ipratropium [place] 0.2 MG/ML (0.02 %) SOLUTION 2.5 ML INH EVERY 4 HRS/AWAKE COPD Nicotine (Nicotine Patch) 21 MG/24 HOUR PATCH.TD24 1 PAT TOP DAILY smoking cessation Olanzapine 10 MG TABLET 1 TAB PO QPM DEPRESSION (Reported) Olanzapine (Zyprexa) 10 MG TABLET 1 TAB PO QPM mental health Oxycodone HCl/Acetaminophen (Percocet 10-325 MG Tablet) 10 MG-325 MG TABLET 1 TAB PO 4 TIMES/DAY PRN PAIN Prednisone 10 MG TABLET 1 TAB PO SI COPD TAKE 4TABLETS FOR 2DAYS TAKE 3TABLETS FOR 3DAYS TAKE 2TABLETS FOR 3DAYS TAKE 1TABLET FOR 3DAYS THEN STOP PREDNISONE. Triage Note: PT STATES SHE RAN OUT OF ZYPREXA 10 MG. STATES SHE NEEDS TO FIND A DOCTOR TO PRESCRIBE IT. STATES USED TO GET IT FROM [facility] Triage Nurses Notes Reviewed? yes HPI: Patient is a 51-year-old female presents requesting medication refill. Patient reports that she takes Zyprexa 10 mg before bedtime daily. Patient recently ran out of her medication, is having difficulty sleeping and her family member reports that she is not really gotten out of bed for the past 2 days due to this. Patient was previously seen [facility] for her psychiatric care, reports that she will no longer be seeing them due to then requiring her to go 3 times a week which she is not able to do. Patient does not have a primary care doctor. Patient denies suicidal ideation. Past History Travel History Traveled to [place] past 21 day No Medical History Any Pertinent Medical History? 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 No Review of Systems Review of Systems Constitutional: Denies: chills, fever. Respiratory: Denies: short of breath. Cardiovascular: Denies: chest pain. GI: Denies: abdominal pain. Musculoskeletal: Reports: no symptoms. Skin: Reports: no symptoms. Neurological/Psychological: Reports: no symptoms. Hematologic/Endocrine: Reports: no symptoms. Immunologic/Allergic: Reports: no symptoms. Physical Exam Physical Exam General Appearance: well developed/nourished, alert, awake Head: atraumatic, normal appearance Eyes: Bilateral: normal appearance, EOMI. Ears, Nose, Throat: hearing grossly normal Neck: normal inspection, supple, full range of motion Respiratory: normal breath sounds, no respiratory distress, lungs clear Cardiovascular: regular rate/rhythm (no murmur) Back: normal range of motion Extremities: normal inspection, normal capillary refill, normal range of motion Neurologic/Psych: no motor/sensory deficits, awake, alert, oriented x 3, normal gait, normal mood/affect, no suicidal ideation Skin: intact, normal color, warm/dry Core Measures ACS in differential dx? No CVA/TIA Diagnosis: No Severe Sepsis Present: No Septic Shock Present: No Progress Differential Diagnoses I considered the following diagnoses in my evaluation of the patient: medication refill, anxiety, depression, suicidal ideation, psychosis Plan of Care: No suicidal or homicidal ideation. Previous records reviewed. Patient was previously on Zyprexa 10 mg daily at bedtime. Will provide patient with a prescription for Zyprexa long with a list of counseling services in the information for a primary care doctor Initial ED EKG: none Departure Departure Time of Disposition: 1011 Disposition: HOME OR SELF CARE Condition: Stable Clinical Impression Primary Impression: Medication refill Referrals: SAE PICHARDO MD PATIENT HAS NO PRIMARY CARE DR (PCP/Family) Additional Instructions: Follow up with Dr. Pichardo to establish a primary doctor. Call today for appointment. Also use the counseling resources list provided in your discharge papers to establish psychiatric care. Return to the emergency department if severe depression, thoughts of harming yourself, or worsening of symptoms. Departure Forms: Customer Survey General Discharge Information Prescriptions: Current Visit Scripts Olanzapine (Zyprexa) 1 TAB PO QPM #30 TAB Critical Care Note Critical Care Note Critical Care Time: non-applicable
[2016-08-27] MEDS ORDERED: ZYPREXA10 M1 PO (10:14)
== END 2016-08-27 10:19 ==
LOC: ERH 09:58
DX: Z76.0 Encounter for issue of repeat prescription (principal)
CPT/HCPCS: 99281

== ENCOUNTER 2016-09-26 10:39 | Emergency (ER) | payer OTHER ==
[~2016-09-26] VITALS: Ht 172.7 cm; Wt 72.6 kg
[~2016-09-26 10:39] MED LIST changes: +ZYPREXA10 M1 PO
[2016-09-26 10:44] VITALS: BP 124/82
--- NOTE | 2016-09-26 11:07 | ED THROAT/DENTAL COMPLAINT ---
History of Present Illness General Chief Complaint: Sore Throat, Dental Pain Stated Complaint: MOUTH ABSCESS, REQ MED REFILL (ZYPREXA) Source: patient Exam Limitations: no limitations Vital Signs & Intake/Output Vital Signs & Intake/Output Vital Signs Date Time Temp Pulse Resp B/P Pulse O2 O2 Flow FiO2 Ox Delivery Rate 09/26 1044 98.4 93 18 124/82 96 Room Air Room Air Allergies Coded Allergies: Penicillins (Intermediate, RASH 07/02/16) Reconcile Medications Budesonide/Formoterol Fumarate (Symbicort 160-4.5 Mcg Inhaler) 160 MCG-4.5 MCG/ ACTUATION HFA.AER.AD 2 PUF INH BID copd Hydrocodone/Acetaminophen (Vicodin 5-300 MG Tablet) 5 MG-300 MG TABLET 1 TAB PO BID PRN dental pain Olanzapine 10 MG TABLET 1 TAB PO QPM depression Triage Note: TRIAGE: 51 Y/O FEMALE PRESENTS WITH 2 CHIEF COMPLAINTS: RAN OUT OF ZYPREXA BECAUSE "MY DOCTOR DOESN'T TAKE MY INSURANCE". REPORTS RIGHT FRONTAL DENTAL ABCESS. "IT HAS A NASTY TASTE COMING OUT OF THE HOLE." Triage Nurses Notes Reviewed? yes HPI: Ms. Woo is a 51 yo f w/ PMH of WPW, asthma and depression presenting to the emergency department for dental pain as well as a prescription refill. Patient states yesterday she took her last olanzapine pill which he takes for depression. She's been having a hard time finding a primary care doctor who will take husky to get her prescription refilled. Patient denies suicidal or homicidal ideations. Patient having ongoing dental pain over the past several months. Poor oral hygiene with multiple fractured teeth as well as tooth decay. Patient states her insurance, she is having a hard time finding a dentist as well. The right maxillary incisor as well as the first molar in the upper mandible has been causing her some pain for some time. She states that when she eats occasionally she will take this foul tasting discharge. She also has pain when she closes her mouth as well as the lower teeth hit the upper teeth causing her pain. There is no focal area of fluctuance or tenderness. Patient states pain feels like it tracks upward (DAVY LOZANO,IVANA) Past History Travel History Traveled to [place] past 21 day No Medical History Any Pertinent Medical History? 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 No (IVANA BHATTI MD) Review of Systems Review of Systems Constitutional: Reports: no symptoms. Comments Review of systems: See HPI, All other systems negative. Constitutional, no chills no fever, no malaise no weight loss HEENT: +R upper incisor pain and R 1st molar pain. No visual changes no sore throat no congestion, no ear pain Cardiovascular: No chest pain , no palpitation , no orthopnea no ankle swelling Skin, no jaundice no rashes, no change in skin Respiratory: No dyspnea no cough no sputum no hemoptysis GI: No nausea no vomiting, no diarrhea, no bloating/constipation : No dysuria No hematuria, no frequency, no discharge Muscle skeletal: No joint pain, no joint swelling, no back pain, no neck pain, Neurologic: No numbness no confusion, no headache Psych: No stress no anxiety no depression,. Heme/endocrine: No bruising no bleeding no polyuria no polydipsia Immunology: No lymphadenopathy, no splenectomy (IVANA BHATTI MD) Physical Exam Physical Exam Mouth/Throat: pharynx normal, tenderness to palpation in the gumline above the right upper incisor and right upper first molar. no fluctuance orabscess appreciated Comments: Well-developed well-nourished person in no acute distress HEENT: Overall poor dentition. Fractured R upper incisor on buccal surface, fractured 1st upper molar on inner surface. no dental abscess or area of fluctuance noted; PERRL, EOMI, no nystagmus. HEAD is atraumatic. moist mucous membranes. Neck: Supple, no lymphadenopathy, normal range of motion without pain or tenderness Back: Nontender, no CVA tenderness. Full range of motion Cardiovascular: Regular rate and rhythms no murmurs rubs or gallops, normal JVP Respiratory: Chest nontender.There were no bony deformities, no asymmetry. No respiratory distress. Patient speaking in full complete sentences. Breath sounds clear to auscultation bilaterally: NO W/R/R Abdomen: Soft, nontender nondistended, no appreciable organomegaly. Normal bowel sounds. No rebound/guarding, No appreciable enlargement of the abdominal aorta, No ascites. Extremity: No edema, full range of motion of extremities, normal and equal pulses bilaterally, 5 out of 5 strength noted to bilateral upper and lower extremities Neuro: Alert oriented x3, motor sensory normal, cranial nerves II through XII grossly intact. There were no obvious focal neurologic abnormalities. Skin: No appreciable rash on exposed skin, skin is warm and dry. Psych: Mood and affect is normal, memory and judgment is normal. Core Measures ACS in differential dx? No Severe Sepsis Present: No Septic Shock Present: No (IVANA BHATTI MD) Progress Differential Diagnosis: carious tooth, Ludwigs angina, odontogenic abscess, stomatitis/gingivitis, tooth fracture Plan of Care: Patient is generally well-appearing. No PCP or dentist currently to prescribe her medications. Very poor oral hyiegene w/ evident tooth decay and previously fractured teeth. no abscess appreciated. pt does not have any submandibular fullness, swelling or trismus to suggest Ludwigs angina. Pt need tooth extraction. Given list of dentists in the area. Patient also ran out of olanzapine last night (used to treat depression). between PCP due to only having Husky. Will refill olanzapine (patient provided bottle w/ Rx on it) 10mg qHS #30tabs, 0 refills. Fill f/u w/ PMD for additional refills. Pt also given vicodin Rx (10 tabs) for dental pain until she sees dentist. Offered dental injection, which she refused. (IVANA BHATTI MD) Departure Departure Time of Disposition: 1128 Disposition: HOME OR SELF CARE Condition: Stable Clinical Impression Primary Impression: Tooth decay Secondary Impressions: Medication refill, Mouth pain Referrals: PATIENT HAS NO PRIMARY CARE DR (PCP/Family) Additional Instructions: On the way out, stop by registration so you can get a call back from the [facility] to establish care with a primary care physician. He has been provided with a list of dental providers in the state of [place]. Please give them a call as soon as possible to establish care and have your teeth reassess. It is likely that multiple teeth will need to be extracted. If you have worsening pain, develop a fever, had difficulty opening or closing her mouth, please return to the emergency department for evaluation. Departure Forms: Customer Survey General Discharge Information LIST- DENTAL CLINIC LIST Prescriptions: Current Visit Scripts Olanzapine 1 TAB PO QPM #30 TAB Hydrocodone/Acetaminophen (Vicodin 5-300 MG Tablet) 1 TAB PO BID PRN dental pain #8 TAB (DAVY LOZANO,IVANA) PA/COMBINING MACHINE OPERATOR Co-Sign Statement Statement: ED Attending supervision documentation- [] I saw and evaluated the patient. I have also reviewed all the pertinent lab results and diagnostic results. I agree with the findings and the plan of care as documented in the PA's/COMBINING MACHINE OPERATOR's documentation. x I have reviewed the ED Record and agree with the PA's/COMBINING MACHINE OPERATOR's documentation. [] Additions or exceptions (if any) to the PAs/COMBINING MACHINE OPERATOR's note and plan are summarized below: [] (MINAL LOZANO,ABRAN)
[2016-09-26] MEDS ORDERED: VICODIN 5-3001 EACH PO (11:33)
[2016-09-26] MEDS ORDERED: OLANZAPINE10 M1 PO (11:33)
== END 2016-09-26 11:39 ==
LOC: ERH 10:39
DX: K02.9 Dental caries, unspecified (principal); Z76.0 Encounter for issue of repeat prescription; K13.79 Other lesions of oral mucosa; Z72.0 Tobacco use

== ENCOUNTER 2016-10-24 10:30 | Emergency (ER) | payer OTHER ==
[~2016-10-24] VITALS: Ht 172.7 cm; Wt 72.6 kg
[~2016-10-24 10:30] MED LIST changes: +VICODIN 5-3001 EACH PO
[2016-10-24 10:36] VITALS: BP 112/75
--- NOTE | 2016-10-24 10:45 | ED GENERAL ADULT ---
History of Present Illness General Chief Complaint: General Adult Stated Complaint: MEDICATION REFILL Source: patient, family, old records Exam Limitations: no limitations Vital Signs & Intake/Output Vital Signs & Intake/Output Vital Signs Date Time Temp Pulse Resp B/P B/P Pulse O2 O2 Flow FiO2 Mean Ox Delivery Rate 10/24 1036 98.8 88 16 112/75 94 Room Air Allergies Coded Allergies: Penicillins (Intermediate, RASH 07/02/16) Reconcile Medications Albuterol Sulfate (Ventolin Hfa) 90 MCG HFA.AER.AD 2 PUF INH Q4-6 PRN PRN WHEEZING/SHORTNESS OF BREATH Budesonide/Formoterol Fumarate (Symbicort 160-4.5 Mcg Inhaler) 160 MCG-4.5 MCG/ ACTUATION HFA.AER.AD 2 PUF INH BID copd Hydrocodone/Acetaminophen (Vicodin 5-300 MG Tablet) 5 MG-300 MG TABLET 1 TAB PO BID PRN dental pain Olanzapine (Zyprexa) 10 MG TABLET 1 TAB PO QPM mental health Olanzapine 10 MG TABLET 1 TAB PO QPM depression Triage Note: PT HERE FOR MED REFILL STATES SHE NEEDS HER ZYPREXA REFILLED. PT STATES SHE HAS AN APPT.FOR THE WITH HER Triage Nurses Notes Reviewed? yes HPI: Patient is a 51-year-old female presents requesting refill of Zyprexa and albuterol inhaler. She reports that she has been on Zyprexa chronically, is down to her last dose of medication. Patient has an appointment with Dr. Ma on November 03. Patient reports that when she runs out of her Zyprexa she has difficulty sleeping and changes in her mood. Since patient has been taking her medication she has not been having any problems with anxiety, depression, sleeping. Symptoms are currently 0 out of 10. Patient denies dyspnea, chest pain, cough, depression, suicidal ideation. (RANJANA ROMAN,KASIA) Past History Travel History Traveled to [place] past 21 day No Medical History Any Pertinent Medical History? 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 No (KASIA BLANK) Review of Systems Review of Systems Constitutional: Reports: no symptoms. EENTM: Reports: no symptoms. Respiratory: Denies: cough, short of breath. Cardiovascular: Denies: chest pain. GI: Denies: abdominal pain. Genitourinary: Reports: no symptoms. Musculoskeletal: Reports: no symptoms. Skin: Reports: no symptoms. Neurological/Psychological: Reports: no symptoms. Hematologic/Endocrine: Reports: no symptoms. Immunologic/Allergic: Reports: no symptoms. (KASIA BLANK) Physical Exam Physical Exam General Appearance: well developed/nourished, alert, awake Head: atraumatic, normal appearance Eyes: Bilateral: normal appearance, PERRL, EOMI. Ears, Nose, Throat: hearing grossly normal Neck: normal inspection, supple, full range of motion Respiratory: normal breath sounds, chest non-tender, no respiratory distress, lungs clear Cardiovascular: regular rate/rhythm (no murmur, rub or gallop) Back: normal inspection, normal range of motion Extremities: normal inspection, normal capillary refill, normal range of motion, no edema Neurologic/Psych: no motor/sensory deficits, awake, alert, oriented x 3, normal gait, normal mood/affect, no suicidal ideation, no apparent hallucinations Skin: intact, normal color, warm/dry Core Measures ACS in differential dx? No CVA/TIA Diagnosis: No Severe Sepsis Present: No Septic Shock Present: No (KASIA BLANK) Progress Differential Diagnoses I considered the following diagnoses in my evaluation of the patient: medication refill, mood disorder, personality disorder, psychosis Plan of Care: No suicidal or homicidal ideation. Does not appear to require hob grinder consultation. Appears stable for discharge and follow up with Dr. Ma on November 03. Initial ED EKG: none (KASIA BLANK) Departure Departure Time of Disposition: 1053 Disposition: HOME OR SELF CARE Condition: Stable Clinical Impression Primary Impression: Medication refill Referrals: ROSITA MA MD (PCP/Family) Additional Instructions: Follow up with Dr. Ma on November 03 as scheduled. Return to the ER if any difficulty breathing, severe depression, severe anxiety or worsening of symptoms. Departure Forms: Customer Survey General Discharge Information Prescriptions: Current Visit Scripts Albuterol Sulfate (Ventolin Hfa) 2 PUF INH Q4-6 PRN PRN WHEEZING/SHORTNESS OF BREATH #1 INHAL Olanzapine (Zyprexa) 1 TAB PO QPM #30 TAB (KASIA BLANK) PA/NATURALIZATION EXAMINER Co-Sign Statement Statement: ED Attending supervision documentation- [] I saw and evaluated the patient. I have also reviewed all the pertinent lab results and diagnostic results. I agree with the findings and the plan of care as documented in the PA's/NATURALIZATION EXAMINER's documentation. [X] I have reviewed the ED Record and agree with the PA's/NATURALIZATION EXAMINER's documentation. [] Additions or exceptions (if any) to the PAs/NATURALIZATION EXAMINER's note and plan are summarized below: [] (ELIZABETH LOZANO,HAKAN Arellano) Critical Care Note Critical Care Note Critical Care Time: non-applicable (KASIA BLANK)
[2016-10-24] MEDS ORDERED: ZYPREXA10 M1 PO (10:55)
[2016-10-24] MEDS ORDERED: VENTOLIN HFA18 GM INH (10:55)
== END 2016-10-24 11:09 ==
LOC: ERH 10:30
DX: Z76.0 Encounter for issue of repeat prescription (principal)
CPT/HCPCS: 99281

== ENCOUNTER 2016-12-12 14:19 | Emergency (ER) | payer SELFPAY ==
[~2016-12-12] VITALS: Ht 172.7 cm; Wt 72.6 kg
[~2016-12-12 14:19] MED LIST changes: +VENTOLIN HFA18 GM INH
[2016-12-12 14:28] VITALS: BP 126/80
[2016-12-12] MEDS ORDERED: CLINDAMYCIN HC300 M1 PO (14:47)
[2016-12-12] MEDS ORDERED: NORCO 5-325 TA1 EACH PO (14:47)
--- NOTE | 2016-12-12 14:48 | ED THROAT/DENTAL COMPLAINT ---
History of Present Illness General Chief Complaint: General Adult Stated Complaint: DENTAL ABCESS Source: patient, old records Exam Limitations: no limitations Vital Signs & Intake/Output Vital Signs & Intake/Output Vital Signs Date Time Temp Pulse Resp B/P B/P Pulse O2 O2 Flow FiO2 Mean Ox Delivery Rate 12/12 1428 98.6 98 18 126/80 98 Room Air Room Air Allergies Coded Allergies: Penicillins (Intermediate, RASH 07/02/16) Reconcile Medications Albuterol Sulfate (Ventolin Hfa) 90 MCG HFA.AER.AD 2 PUF INH Q4-6 PRN PRN WHEEZING/SHORTNESS OF BREATH Budesonide/Formoterol Fumarate (Symbicort 160-4.5 Mcg Inhaler) 160 MCG-4.5 MCG/ ACTUATION HFA.AER.AD 2 PUF INH BID copd Clindamycin HCl 300 MG CAPSULE 1 CAP PO TID dental Hydrocodone/Acetaminophen ([place] 5-325 Tablet) 5 MG-325 MG TABLET 1 TAB PO Q4- 6 PRN PRN pain Hydrocodone/Acetaminophen (Vicodin 5-300 MG Tablet) 5 MG-300 MG TABLET 1 TAB PO BID PRN dental pain Olanzapine (Zyprexa) 10 MG TABLET 1 TAB PO QPM mental health Olanzapine 10 MG TABLET 1 TAB PO QPM depression Triage Note: TRIAGE: 51 Y/O FEMALE PRESENTS C/O DENTAL ABCESS X 1 WEEK. FACIAL REDNESS AND SWELLING NOTED. "I HAVE TO GO TO AN ORAL SURGEON BUT I CAN'T AFFORD TO GO TO AN ORAL SURGEON." Triage Nurses Notes Reviewed? yes Onset: Abrupt Duration: day(s): (4), constant Timing: recent history Injury Environment: home Severity: moderate, severe Severity Numbers: 9 Modifying Factors: Worsens With: eating. Associated Symptoms: denies HPI: 51-year-old female presents to ER for evaluation complaining right-sided facial swelling right upper dental pain for the past 1 week. She states that she has not taken anything for her symptoms are really been getting progressively worse. No difficulty swallowing or fever no chills. She is not thought care because she states she does not have insurance. Pain is worse with palpation and eating. No other modifying factors or associated symptoms. Past History Travel History Traveled to [place] past 21 day No Medical History Any Pertinent Medical History? 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 No Review of Systems Review of Systems Constitutional: Reports: see HPI. All Other Systems: Reviewed and Negative Comments Review of systems: See HPI, All other systems negative. Constitutional, no chills no fever, no malaise HEENT: No visual changes no sore throat no congestion, Cardiovascular: No chest pain , no palpitation Skin: no rashes, no change in skin Respiratory: No dyspnea no cough no sputum GI: No nausea no vomiting, no diarrhea, : No dysuria Muscle skeletal: No joint pain, no back pain, no neck pain, Neurologic: No numbness no headache Psych: No stress Heme/endocrine: No bruising Immunology: No lymphadenopathy Physical Exam Physical Exam General Appearance: well developed/nourished, no apparent distress, alert, awake Mouth/Throat: normal mouth inspection Comments: Well-developed well-nourished patient in no apparent distress. Head/Face: Atraumatic, no maxillary/frontal sinus tenderness, no facial swelling Eyes: PERRL, EOMI, no conjunctival injection Ear:External auditory canal and Tympanic membranes clear, no erythema, no FB. Nose: atraumatic.Normal inspection Throat: Moist mucous membranes.Pharynx normal. No pharyngeal erythema/exudate seen. No stridor/drooling or assymetry. No swelling or edema. Poor dentition right-sided upper dental tenderness no gingival abscess Neck: Supple, no lymphadenopathy, FROM Back: FROM Cardiovascular: Regular rate and rhythms no murmurs Respiratory: No respiratory distress. Patient speaking in full complete sentences. Breath sounds clear to auscultation bilaterally: NO W/R/R Extremities: full range of motion Neuro: awake, alert, and oriented to person, place and time. There were no obvious focal neurologic abnormalities. Skin: Warm & dry;No appreciable rash on exposed skin Psych: Mood affect normal, normal memory normal judgment. Core Measures ACS in differential dx? No Severe Sepsis Present: No Septic Shock Present: No Progress Differential Diagnosis: carious tooth, epiglottitis, odontogenic abscess, bri- tonsillar abscess, strep pharyngitis Plan of Care: I discussed with the patient at length all of their results. I had an extensive conversation regarding need for close follow up with their primary care physician this week as well as return precautions. I answered all of their questions, they feel comfortable with the plan and follow-up care. I discussed with the patient/family the medications that they will receive. I gave them signs and symptoms that could indicate an adverse reaction. I have advised them to limit their activities until they can see how they respond to the medication. Departure Departure Time of Disposition: 1445 Disposition: HOME OR SELF CARE Condition: Stable Clinical Impression Primary Impression: Pain, dental Referrals: ROSITA MA MD (PCP/Family) Additional Instructions: follow up with oral surgeon. clindamycin as directed. norco for breakthrough pain. this is a narcotic and highly addictive. no driving or drinking alcohol while taking. return with any concerns. this was sent to [facility] Departure Forms: Customer Survey General Discharge Information Prescriptions: Current Visit Scripts Clindamycin HCl 1 CAP PO TID #21 CAP Hydrocodone/Acetaminophen ([place] 5-325 Tablet) 1 TAB PO Q4-6 PRN PRN pain #10 TAB
== END 2016-12-12 15:01 ==
LOC: ERH 14:19
DX: K08.89 Other specified disorders of teeth and supporting structures (principal)

== ENCOUNTER 2016-12-20 13:53 | Emergency (ER) | payer OTHER ==
[~2016-12-20] VITALS: Ht 172.7 cm; Wt 72.6 kg
[~2016-12-20 13:53] MED LIST changes: +CLINDAMYCIN HC300 M1 PO; +NORCO 5-325 TA1 EACH PO
--- NOTE | 2016-12-20 14:47 | ED SKIN/ALLERGY COMPLAINT ---
History of Present Illness General Chief Complaint: Allergy Symptoms Stated Complaint: ?ALLERGY, RASH ALL OVER Source: patient Exam Limitations: no limitations Vital Signs & Intake/Output Vital Signs & Intake/Output Vital Signs Date Time Temp Pulse Resp B/P B/P Pulse O2 O2 Flow FiO2 Mean Ox Delivery Rate 12/20 1700 94 20 125/88 98 Room Air 12/20 1602 94 12/20 1427 97.4 108 28 119/87 93 Room Air Allergies Coded Allergies: clindamycin (Severe, FULL BODY RASH 12/20/16) Penicillins (Intermediate, RASH 07/02/16) Reconcile Medications Albuterol Sulfate (Ventolin Hfa) 90 MCG HFA.AER.AD 2 PUF INH Q4-6 PRN PRN WHEEZING/SHORTNESS OF BREATH Albuterol Sulfate (Ventolin Hfa) 90 MCG HFA.AER.AD 2 PUF INH Q4-6 PRN PRN WHEEZING Budesonide/Formoterol Fumarate (Symbicort 160-4.5 Mcg Inhaler) 160 MCG-4.5 MCG/ ACTUATION HFA.AER.AD 2 PUF INH BID copd Clindamycin HCl 300 MG CAPSULE 1 CAP PO TID dental Doxycycline Hyclate 100 MG CAPSULE 1 CAP PO BID DENTAL ABSCESS Hydrocodone/Acetaminophen (Vicodin 5-300 MG Tablet) 5 MG-300 MG TABLET 1 TAB PO BID PRN PAIN Olanzapine (Zyprexa) 10 MG TABLET 1 TAB PO QPM mental health Prednisone 10 MG TABLET 1 TAB PO AD ALLERGIC REACTION DAY1/DAY2 FOUR TABS DAY3/DAY4 THREE TABS DAY5/DAY6 TWO TABS DAY 7 ONE TAB Triage Note: SEEN HERE ON 12/12 FOR A TOOTH ABCESS, WAS PUT ON CLINDAMYCIN, HAS A ITCHY, RED, MACULAR RASH ON CHEST, ABDOMEN BACK AND LEGS. ALSO C/O SOB. Triage Nurses Notes Reviewed? yes Onset: Gradual Duration: constant Timing: recent history Severity: severe Severity Numbers: 7 HPI: Patient is a 51-year-old female with past medical history of COPD who is in every day smoker who presents to emergency room stating that 8 days ago patient was evaluated here at [facility] emergency room for concerns of gum abscess and dental decay to the right upper tooth region with this is been present chronically where she was prescribed Vicodin and clindamycin. Patient states that she's been on the medications and which she states that 2 days ago she began a gradual onset of entire body red itching rash and sensation. Patient also states that his made her COPD and chronic shortness of breath worse however patient denies any fever chills tongue swelling lip swelling difficulty swallowing chest pain. (SAPNA SALGADO) Past History Travel History Traveled to [place] past 21 day No Medical History Any Pertinent Medical History? 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 No (SAPNA SALGADO) Review of Systems Review of Systems Constitutional: Reports: no symptoms. EENTM: Reports: no symptoms. Respiratory: Reports: see HPI, short of breath, wheezing. Cardiovascular: Reports: no symptoms. GI: Reports: no symptoms. Genitourinary: Reports: no symptoms. Musculoskeletal: Reports: no symptoms. Skin: Reports: see HPI, rash. Neurological/Psychological: Reports: no symptoms. Hematologic/Endocrine: Reports: no symptoms. Immunologic/Allergic: Reports: no symptoms. All Other Systems: Reviewed and Negative (SAPNA SALGADO) Physical Exam Physical Exam General Appearance: no apparent distress, alert, comfortable Comments: Well-developed well-nourished person in no acute distress HEENT: Normal EENT exam, extraocular motion intact, no nystagmus. Pupils equally round and reactive to light and accommodation. Nose is atraumatic. External auditory canal and Tympanic membranes clear. Pharynx normal. No swelling or edema. No tongue swelling noted swelling no pharyngeal swelling Neck: Supple, no lymphadenopathy, normal range of motion without pain or tenderness No stridor Back: Nontender, no CVA tenderness. Cardiovascular: Regular rate and rhythms no murmurs rubs or gallops, normal JVP Respiratory: Chest nontender. No respiratory distress. Noted mild bilateral posterior wheezing Abdomen: Soft, nontender nondistended, no appreciable organomegaly. Normal bowel sounds. No ascites Extremity: No edema, no calf tenderness to palpation, normal and equal pulses. Neuro: Alert oriented x3, motor sensory normal, cranial nerves II through XII grossly intact. Skin: Noted anterior and posterior torso of urticarial diffuse erythematous rash Psych: Mood and affect is normal, memory and judgment is normal. (SAPNA SALGADO) Progress Differential Diagnosis: abscess/cellulitis, allergic reaction, anaphylaxis, angioedema, asthma, contact dermatitis, drug reaction, erythema multiforme, lyme disease, meningitis/sepsis, piyriasis rosea, RMSF, scarlet fever, shingles, urticaria Plan of Care: Current Medications Sig/Rosalina Start time Last Medication Dose Stop Time Status Admin Albuterol Sulfate 3 ML ONCE ONE 12/20 154 UNVr (Proventil) 12/20 154 Diphenhydramine HCl 25 MG ONCE ONE 12/20 154 UNVr (Benadryl) 12/20 154 Famotidine 20 MG ONCE ONE 12/20 154 UNVr (Pepcid) 12/20 154 Ipratropium [place] 2.5 ML ONCE ONE 12/20 154 UNVr (Atrovent) 12/20 154 Methylprednisolone 125 MG ONCE ONE 12/20 154 UNVr (Solu Medrol) 12/20 1546 Patient was afebrile and no respiratory distress. Patient does have concerns of allergic reaction Patient was given nebulizer treatments & Medrol and antihistamines in the emergency room. Patient had significant resolution of wheezing prior to discharge. Patient was strongly advised to discontinue clindamycin however patient has been on this medication for 5 days. Upon discharge patient looks well no apparent distress speaking in full sentences oxygen saturation 98% room air concerns of anaphylaxis or angioedema (SAPNA SALGADO) Departure Departure Disposition: HOME OR SELF CARE Condition: Stable Clinical Impression Primary Impression: Urticaria Secondary Impressions: COPD (chronic obstructive pulmonary disease) Referrals: ROSITA MA MD (PCP/Family) Additional Instructions: As discussed please discontinue the use of clindamycin. Begin the prescription doxycycline. Begin the prescription of prednisone for the full course. Begin the prescription of Ventolin for shortness of breath and wheezing. Please discontinue smoking. Begin the prescription of Vicodin for breakthrough pain relief. Please follow-up with a list of dentists provided to the emergency room for further evaluation treatment. Prescriptions waiting at [facility] pharmacy. If symptoms worsen return to the emergency room. Please obtain health insurance as soon as possible Departure Forms: Customer Survey General Discharge Information Prescriptions: Current Visit Scripts Prednisone 1 TAB PO AD #19 TAB DAY1/DAY2 FOUR TABS DAY3/DAY4 THREE TABS DAY5/DAY6 TWO TABS DAY 7 ONE TAB Hydrocodone/Acetaminophen (Vicodin 5-300 MG Tablet) 1 TAB PO BID PRN PAIN #8 TAB Albuterol Sulfate (Ventolin Hfa) 2 PUF INH Q4-6 PRN PRN WHEEZING #1 INHAL Doxycycline Hyclate 1 CAP PO BID #20 CAP (SAPNA SALGADO) PA/ORE MINER Co-Sign Statement Statement: ED Attending supervision documentation- [] I saw and evaluated the patient. I have also reviewed all the pertinent lab results and diagnostic results. I agree with the findings and the plan of care as documented in the PA's/ORE MINER's documentation. [X] I have reviewed the ED Record and agree with the PA's/ORE MINER's documentation. [] Additions or exceptions (if any) to the PAs/ORE MINER's note and plan are summarized below: [] (JOCELYNE GARCIA DO
[2016-12-20 17:00] VITALS: BP 125/88
[2016-12-20] MEDS ORDERED: VENTOLIN HFA18 GM INH (17:18)
[2016-12-20] MEDS ORDERED: DOXYCYCLINE HY100 M2 PO (17:18)
[2016-12-20] MEDS ORDERED: VICODIN 5-3001 EACH PO (17:18)
[2016-12-20] MEDS ORDERED: PREDNISONE10 M2 PO (17:18)
== END 2016-12-20 17:56 ==
LOC: ERH 13:53
DX: L50.9 Urticaria, unspecified (principal); J44.9 Chronic obstructive pulmonary disease, unspecified; F17.210 Nicotine dependence, cigarettes, uncomplicated
CPT/HCPCS: 1263; 96374; 96375; J1200; J2930

== ENCOUNTER 2017-09-13 17:16 | Emergency (ER) | payer OTHER ==
[~2017-09-13] VITALS: Ht 170.2 cm; Wt 81.6 kg
[~2017-09-13 17:16] MED LIST changes: +DOXYCYCLINE HY100 M2 PO; +GUAIFEN-CODEINE10 ML PO; +MEDROL4 M2 PO; +NEXTERONE360 MG/200 IV; +PREDNISONE20 M1 PO; +PROAIR HFA8.5 GM INH; +SOLU-MEDRO40 MG/1 ML IV
--- NOTE | 2017-09-13 17:34 | ED THROAT/DENTAL COMPLAINT ---
History of Present Illness General Chief Complaint: Sore Throat, Dental Pain Stated Complaint: ABCESS IN ?TOOTH Source: patient, old records Exam Limitations: no limitations Vital Signs & Intake/Output Vital Signs & Intake/Output Vital Signs Date Time Temp Pulse Resp B/P B/P Pulse O2 O2 Flow FiO2 Mean Ox Delivery Rate 09/13 1735 98.5 90 20 135/85 95 Room Air Allergies Coded Allergies: clindamycin (Severe, FULL BODY RASH 09/13/17) Penicillins (Intermediate, RASH 09/13/17) Reconcile Medications Albuterol Sulfate (Ventolin Hfa) 90 MCG HFA.AER.AD 2 PUF INH Q4-6 PRN PRN WHEEZING/SHORTNESS OF BREATH Amiodarone in Dextrose,Iso-Osm (Nexterone 360 MG/200 Ml Bag) 360 MG/200 ML (1.8 MG/ML) PLAST..BAG 0 IV SI TACHYCARDIA 0.5 MG/MIN CONTINOUS. Azithromycin (Zithromax) 250 MG TABLET 1 DP PO AD DENTAL 2 the first day followed by 1 for days 2-5 Budesonide/Formoterol Fumarate (Symbicort 160-4.5 Mcg Inhaler) 160 MCG-4.5 MCG/ ACTUATION HFA.AER.AD 2 PUF INH BID copd Codeine Phosphate/Guaifenesi (Guaifen-Codeine 200-20 MG/10ML) 20 MG-200 MG/10 ML LIQUID 10 ML PO Q6RH PRN COUGH Hydrocodone/Acetaminophen ([place] 5-325 Tablet) 5 MG-325 MG TABLET 1 TAB PO BIDP PRN PAIN Hydrocodone/Acetaminophen ([place] 5-300 MG Tablet) 5 MG-300 MG TABLET 1 TAB PO BID PRN PAIN Olanzapine (Zyprexa) 10 MG TABLET 1 TAB PO QPM mental health Prednisone 20 MG TABLET 60 MG PO DAILY Taper for COPD 60x3 days starting 05/02/17 #9 40x3 days #6 30x3 days #4.5 20x3 days #3 10x 3 days. #1.5 Stop and see pulmonology for further recs. Triage Nurses Notes Reviewed? yes Onset: Abrupt Duration: week(s): (1.5), constant Timing: recent history Injury Environment: home Severity: moderate Severity Numbers: 6 No Modifying Factors: none Associated Symptoms: denies HPI: 52-year-old female history of COPD active smoker presents complaining of 1-1/2 week history of right lower dental pain. Symptoms are resolved with taking Tylenol she has an appointment scheduled to follow up with the [facility] clinic. She is also told by another dentist that she needs to have for extractions. She denies any facial swelling fever or chills. No difficulty swallowing no cough (Haresh Ronquillo) Past History Travel History Traveled to [place] past 21 day No Medical History Any Pertinent Medical History? 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 No (Haresh Ronquillo) Review of Systems Review of Systems Constitutional: Reports: see HPI. Comments Review of systems: See HPI, All other systems negative. Constitutional, no chills no fever, HEENT: no sore throat no congestion, Cardiovascular: No chest pain , no palpitation Skin: no rashes, no change in skin Respiratory: No dyspnea no cough GI: No nausea no vomiting, Muscle skeletal: No joint pain, no back pain, no neck pain, Neurologic: , no headache Heme/endocrine: No bruising (Haresh Ronquillo) Physical Exam Physical Exam General Appearance: well developed/nourished, no apparent distress, alert, awake Mouth/Throat: poor dentition, no abscess visualized Comments: Well-developed well-nourished patient in no apparent distress. Head/Face: Atraumatic, no facial swelling Eyes: PERRL, EOMI, no conjunctival injection Ear:External auditory canals clear. Nose: atraumatic.Normal inspection Throat: Moist mucous membranes.Pharynx normal. No pharyngeal erythema/exudate seen. No stridor/drooling or assymetry. No swelling or edema. Neck: Supple, no lymphadenopathy, FROM Back: FROM Respiratory: No respiratory distress. Patient speaking in full complete sentences. Breath sounds clear to auscultation bilaterally: NO W/R/R Extremities: full range of motion Neuro: awake, alert, and oriented to person, place and time. There were no obvious focal neurologic abnormalities. Skin: Warm & dry;No appreciable rash on exposed skin Psych: Mood affect normal, normal memory normal judgment. Core Measures ACS in differential dx? No Sepsis Present: No Sepsis Focused Exam Completed? No (Haresh Ronquillo) Progress Differential Diagnosis: carious tooth, epiglottitis, Ludwigs angina, odontogenic abscess, bri-tonsillar abscess Plan of Care: I discussed with the patient at length plan of care I had an extensive conversation regarding need for close follow up with their primary care physician this week as well as return precautions. I answered all of their questions, they feel comfortable with the plan and follow-up care. I discussed with the patient/family the medications that they will receive. I gave them signs and symptoms that could indicate an adverse reaction. I have advised them to limit their activities until they can see how they respond to the medication. (Haresh Ronquillo) Departure Departure Time of Disposition: 1737 Disposition: HOME OR SELF CARE Condition: Stable Clinical Impression Primary Impression: Pain, dental Referrals: Paulo Chery MD (PCP/Family) Additional Instructions: FOLLOW UP SCHEDULED WITH [facility] FOR BREAKTHROUGH PAIN. USE CAUTION THIS WILL MAKE YOU DROWSY. SALT WATER GARGLES. RETURN WITH ANY CONCERNS Departure Forms: Customer Survey General Discharge Information Prescriptions: Current Visit Scripts Hydrocodone/Acetaminophen ([place] 5-325 Tablet) 1 TAB PO BIDP PRN PAIN #10 TAB Azithromycin (Zithromax) 1 DP PO AD #6 TAB 2 the first day followed by 1 for days 2-5 (Haresh Ronquillo) PA/ORTHOPEDICS TEACHER Co-Sign Statement Statement: ED Attending supervision documentation- I saw and evaluated the patient. I have also reviewed all the pertinent lab results and diagnostic results. I agree with the findings and the plan of care as documented in the PA's/ORTHOPEDICS TEACHER's documentation. x I have reviewed the ED Record and agree with the PA's/ORTHOPEDICS TEACHER's documentation. [] Additions or exceptions (if any) to the PAs/ORTHOPEDICS TEACHER's note and plan are summarized below: [] (Catrachita LOZANO,Dustin)
[2017-09-13 17:35] VITALS: BP 135/85
[2017-09-13] MEDS ORDERED: NORCO 5-325 TA1 EACH PO (17:40)
[2017-09-13] MEDS ORDERED: ZITHROMAX250 M2 PO (17:40)
== END 2017-09-13 17:59 ==
LOC: ERH 17:16
DX: K08.89 Other specified disorders of teeth and supporting structures (principal)

== ENCOUNTER 2017-09-23 16:30 | Inpatient (IN) | payer OTHER ==
[~2017-09-23] VITALS: Ht 172.7 cm; Wt 87.3 kg
[2017-09-23 17:12] LABS: ABSOLUTE BASOPHIL COUNT 0.1 /CUMM (0.0-0.2); ABSOLUTE EOSINOPHIL COUNT 0 /CUMM (0.0-0.7); ABSOLUTE GRANULOCYTE CT 15.4 /CUMM (1.4-6.5); ABSOLUTE LYMPH COUNT 1.1 /CUMM (1.2-3.4); ABSOLUTE MONOCYTE COUNT 0.9 /CUMM (0.10-0.60); BASOPHIL % 0.8 % (0.0-2.0); EOSINOPHIL % 0 % (0-5); GRANULOCYTE % 87.7 % (42.2-75.2); HEMATOCRIT 47.2 % (37-47); MEAN CORPUSCULAR HGB CONC 33.1 G/DL (33.0-37.0); MEAN CORPUSCULAR VOLUME 84.6 FL (81.0-99.0); MEAN PLATELET VOLUME 8.7 FL (7.4-10.4); PLATELET COUNT 438 /CUMM (130-400); RBC DISTRIBUTION WIDTH 15.6 % (11.5-14.5); RED BLOOD CELL CT 5.58 /CUMM (4.20-5.40); WHITE BLOOD CELL COUNT 17.6 /CUMM (4.8-10.8)
--- NOTE | 2017-09-23 17:29 | ED DYSPNEA/ASTHMA COMPLAINT ---
History of Present Illness General Chief Complaint: Dyspnea (COPD, CHF, Other) Stated Complaint: SIB DR MCPHERSON, FOR SOB X1DAY Source: patient Exam Limitations: no limitations Vital Signs & Intake/Output Vital Signs & Intake/Output Vital Signs Date Time Temp Pulse Resp B/P B/P Pulse O2 O2 Flow FiO2 Mean Ox Delivery Rate 09/25 0656 97.7 82 18 114/78 93 Nasal Cannula 09/25 0000 94 Nasal 2.0L Cannula 09/24 2338 98.9 88 20 94/60 97 Nasal Cannula 09/24 1619 91 Nasal 1.0L Cannula 09/24 1600 Nasal 2.0L Cannula 09/24 1415 99.3 112 20 120/70 93 Nasal Cannula 09/24 0820 92 Nasal 1.0L Cannula 09/24 0800 Nasal 2.0L Cannula ED Intake and Output 09/25 0000 09/24 1200 Intake Total 1480 370 Output Total Balance 1480 370 Intake, IV 280 270 Intake, Oral 1200 100 Patient 183 lb Weight Weight Bed scale Measurement Method Allergies Coded Allergies: clindamycin (Severe, FULL BODY RASH 09/13/17) Penicillins (Intermediate, RASH 09/13/17) Triage Note: PT PRESENTS TO THE ER C/O SHORTNESS OF BREATH AND PT STATES SHE HAS COPD. PT PRESENTS VERY FLUSHED. PT STATES SOB STARTED YESTERDAY AND GETTING WORSE. PT WAS 88% ON RA AND PLACED ON 2L NC 02 SAT 93%. PT I/E WHEEZING THROUGHOUT ALL LUNG SANTANA. PT STATES SHE SELF MEDICATED WITH HER INHALERS AND 60MG OF PREDNISONE THIS AM.. PT ALSO C/O RCW PAIN 10/ PT TO [facility] FOR EKG Triage Nurses Notes Reviewed? yes Onset: Gradual Duration: day(s): (2) Timing: recent history Severity: severe Activities at Onset: none Prior Episodes/Possible Cause: frequent episodes Modifying Factors: Improves With: immobilization. Worsens With: movement. HPI: Patient is a 52-year-old female with history of COPD presenting to the emergency department with chief complaint of increasing shortness of breath, wheezing 2 days. Denies fevers or chills. No chest pain or palpitations. She's been using her nebulizer machine at home as well as taking prednisone without relief. Called her casting and locker room servicer who recommended she come to the emergency department for evaluation. Denies any sick contacts or recent travel. Denies any congestion or upper respiratory symptoms. (Shelbie PA,Lizeth) Reconcile Medications Albuterol Sulfate 2.5 MG/3 ML (0.083 %) VIAL.NEB 1 Vial INH/WESLY AD PRN RESP. (Reported) Albuterol Sulfate (Ventolin Hfa) 90 MCG HFA.AER.AD 2 PUF INH Q4-6 PRN PRN WHEEZING/SHORTNESS OF BREATH Budesonide/Formoterol Fumarate (Symbicort 160-4.5 Mcg Inhaler) 160 MCG-4.5 MCG/ ACTUATION HFA.AER.AD 2 PUF INH BID copd Olanzapine (Zyprexa) 10 MG TABLET 1 TAB PO QPM mental health Prednisone 10 MG TABLET 1 TAB PO DAILY COPD/Asthma Taper Roflumilast (Daliresp) (Unknown Strength) TABLET (Unknown Dose) UNKNOWN ( Reported) (Patricia LOZANO,Paulo Arellano) Past History Travel History Traveled to [place] past 21 day No Medical History Any Pertinent Medical History? 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 No (Lizeth Mann) Review of Systems Review of Systems Constitutional: Reports: no symptoms. Comments Review of systems: See HPI, All other systems negative. Constitutional, no chills fever or weight loss HEENT: No visual changes no sore throat no congestion Cardiovascular: No chest pain ,palpitation , orthopnea or ankle swelling Skin, no jaundice no rashes Respiratory: No sputum or hemoptysis GI: No nausea no vomiting : No dysuria No hematuria Muscle skeletal: no back pain, no neck pain, Neurologic: No numbness no confusion, no headaches Psych: No stress anxiety or depression,. Heme/endocrine: No bruising no bleeding no polyuria or polydipsia Immunology: No splenectomy or history of AIDS (Lizeth Mann) Physical Exam Physical Exam General Appearance: alert, anxious, moderate distress Respiratory: accessory muscle use, wheezing, respiratory distress Comments: Well-developed well-nourished person in moderate respiratory distress. HEENT: Pupils equally round and reactive to light and accommodation. Nose is atraumatic. External auditory canal and Tympanic membranes clear. Pharynx normal. No swelling or edema. Neck: Normal inspection Cardiovascular: Regular rate and rhythms Respiratory: Chest nontender. Moderate respiratory distress.diffuse wheezing to auscultation bilaterally. Increased use of accessory muscles. Extremity: No edema, no calf tenderness to palpation, normal and equal pulses. Neuro: Alert oriented x3, motor sensory normal, cranial nerves II through XII grossly intact. Skin: No appreciable rash on exposed skin, skin is warm and dry. Psych: Mood and affect is normal, memory and judgment is normal. Core Measures ACS in differential dx? Yes CVA/TIA Diagnosis No Sepsis Present: No Sepsis Focused Exam Completed? No (Lizeth Mann) Progress Differential Diagnosis: asthma, AMI, bronchitis, costochondritis, CHF, COPD, pericarditis, pulmonary embolism, pneumonia Plan of Care: Orders Procedure Date/time Status CBC WITHOUT DIFFERENTIAL 09/25 0600 Active GLYCOSYLATED HGB 09/24 0623 Complete Lab Add-on Test 09/24 UNK Active Nursing Misc 09/24 UNK Active Current Medications Sig/Rosalina Start time Last Medication Dose Stop Time Status Admin Methylprednisolone 40 MG Q12 09/24 2200 AC 09/24 (Solumedrol) 221 Albuterol Sulfate 3 ML .[AD] PRN 09/24 1500 CAN (Proventil) Budesonide/ 2 PUF BID 09/24 1124 AC 09/24 Formoterol Fumarate 2217 (Symbicort) Enoxaparin Sodium 40 MG DAILY 09/24 1000 AC 09/24 (Lovenox) 0945 Albuterol Sulfate 3 ML EVERY 4 HRS/AWAKE 09/24 0800 AC 09/24 (Proventil) 202 Ipratropium Irene 2.5 ML EVERY 4 HRS/AWAKE 09/24 0800 AC 09/24 (Atrovent) 202 Guaifenesin/Codeine 10 ML Q4P PRN 09/23 2245 AC 09/25 Phosphate 0010 (Robitussin AC) Azithromycin 500 MG DAILY 03/2199 AC 09/24 (Zithromax) 0945 Dextrose/Water 250 ML (D5W) Olanzapine 10 MG QPM 09/23 2199 AC 09/24 (Zyprexa) 221 Albuterol Sulfate 3 ML Q6 PRN 09/23 2114 AC (Proventil) Insulin Aspart 0 TIDAC 09/23 2114 AC 09/24 (NovoLOG) 1800 Laboratory Tests 09/25/17 0623: CBC w Diff Pending, WBC Pending, RBC Pending, Hgb Pending, Hct Pending, MCV Pending, MCH Pending, MCHC Pending, RDW Pending, Plt Count Pending, MPV Pending SPOKE WITH DR. MCPHERSON, RECOMMENDING ADMITTION for COPD exacerbation. Patient compliant. Diagnostic Imaging: Viewed by Me: Radiology Read. Discussed w/RAD: Radiology Read. Radiology Impression: PATIENT: MEAGHAN VELASQUEZ PRESENT AGE: 52 PATIENT ACCOUNT NO: [id number] : 65 LOCATION: [facility] ORDERING PHYSICIAN: Lizeth ROMAN SERVICE DATE: 09/23/17 EXAM TYPE: RAD - XRY-PORTABLE CHEST XRAY EXAMINATION: XR PORTABLE CHEST CLINICAL INFORMATION: Shortness of breath COMPARISON: 04/30/2017 TECHNIQUE: Portable frontal view of the chest was obtained. FINDINGS: No significant abnormality is noted involving the heart, lungs, mediastinum, bony thorax or soft tissues. IMPRESSION: Unremarkable examination. DICTATED BY: Christofer Velasquez MD DATE/TIME DICTATED:09/23/171825 OVEN PRESS TENDER:GLORIA DATE/TIME TRANSCRIBED:09/23/171825 CONFIDENTIAL, DO NOT COPY WITHOUT APPROPRIATE AUTHORIZATION. <Electronically signed in Other Vendor System> SIGNED BY: Christofer Velasquez MD 09/23/17 1830 Initial ED EKG: SINUS TACHY (Lizeth Mann) Departure Departure Disposition: STILL A PATIENT Condition: Stable Clinical Impression Primary Impression: COPD exacerbation Referrals: Paulo Chery MD (PCP/Family) Departure Forms: Customer Survey General Discharge Information Admission Note Spoke With: Raffaele Shah MD Documentation of Exam: Documentation of any treatments & extenuating circumstances including Concerns Regarding Discharge (functional status, medication knowledge or non-compliance, living conditions, etc.) that warrant an admission rather than observation: Patient requiring continuous oxygen which is new for this patient, continuous breathing treatments, myalgic consultation, IV steroids, may require IV azithromycin, discharge at this time is medically harmful. (Lizeth Mann) Departure Prescriptions: Current Visit Scripts Prednisone 1 TAB PO DAILY #5 TAB PA/WEIGHT TESTER Co-Sign Statement Statement: ED Attending supervision documentation- [X] I saw and evaluated the patient. I have also reviewed all the pertinent lab results and diagnostic results. I agree with the findings and the plan of care as documented in the PA's/WEIGHT TESTER's documentation. [X] I have reviewed the ED Record and agree with the PA's/WEIGHT TESTER's documentation. [] Additions or exceptions (if any) to the PAs/WEIGHT TESTER's note and plan are summarized below: [Patient to be admitted for COPD exacerbation. IV antibiotics, IV steroids, nebulizers, respiratory treatments, pulmonary consultation] (Patricia LOZANO,Paulo Arellano) Critical Care Note Critical Care Note Critical Care Time: 30-74 min (Lizeth Mann)
--- NOTE | 2017-09-23 18:30 | RADIOLOGY REPORT ---
EXAMINATION: XR PORTABLE CHEST CLINICAL INFORMATION: Shortness of breath COMPARISON: 04/30/2017 TECHNIQUE: Portable frontal view of the chest was obtained. FINDINGS: No significant abnormality is noted involving the heart, lungs, mediastinum, bony thorax or soft tissues. IMPRESSION: Unremarkable examination.
[2017-09-23] MEDS ORDERED: ALBUTEROL2.5 MG/3 M INH/SOL (19:01)
[2017-09-23] MEDS ORDERED: DALIRESP500 MC1 (19:01)
--- NOTE | 2017-09-23 19:34 | History & Physical ---
General Information and HPI Allergies/Medications Allergies: Coded Allergies: clindamycin (Severe, FULL BODY RASH 09/13/17) Penicillins (Intermediate, RASH 09/13/17) Home Med list Albuterol Sulfate 2.5 MG/3 ML (0.083 %) VIAL.NEB 1 Vial INH/WESLY AD PRN RESP. (Reported) Albuterol Sulfate (Ventolin Hfa) 90 MCG HFA.AER.AD 2 PUF INH Q4-6 PRN PRN WHEEZING/SHORTNESS OF BREATH Budesonide/Formoterol Fumarate (Symbicort 160-4.5 Mcg Inhaler) 160 MCG-4.5 MCG/ ACTUATION HFA.AER.AD 2 PUF INH BID copd Olanzapine (Zyprexa) 10 MG TABLET 1 TAB PO QPM mental health Roflumilast (Daliresp) (Unknown Strength) TABLET (Unknown Dose) UNKNOWN ( Reported) Past History Travel History Traveled to [place] past 21 day No Medical History Neurological: NONE EENT: NONE Cardiovascular: WPW SYNDROME Respiratory: COPD Gastrointestinal: NONE Hepatic: NONE Renal: NONE Musculoskeletal: NONE Psychiatric: depression Endocrine: NONE Blood Disorders: NONE 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 spouse Primary Language: Tunisian Functional Ability ADLs Independent: dressing, eating, toileting, bathing. Ambulation: independent IADLs Independent: shopping, housework, finances, food prep, telephone, transportation , medication admin. Core Measures/Misc (03/14) Sepsis (View protocol) Sepsis Present: No
--- NOTE | 2017-09-23 21:08 | History & Physical ---
Dustin Martinez MD 09/23/178: General Information and HPI MD Statement: I have seen and personally examined MEAGHAN VELASQUEZ and documented this H&P. The patient is a 52 year old F who presented with a patient stated chief complaint of shortness of breath. Source of Information: patient, old records Exam Limitations: no limitations History of Present Illness: 52 year old female with past medical history of bipolar, COPD, alpha 1 antitrypsin, smoking 40 pack years, and Blevins parkinson white s/p ablation presents with two days of progressive dyspnea. The patient was last hospitalized in 04/2017 with COPD exacerbation and WPW tachyarrhythmia. She was transferred to [facility] and underwent ablation at that time. Since then she has been feeling well until 2-3 days ago she developed respiratory symptoms. It started with a night time cough, productive of light yellow sputum. She is still smoking between a half pack and pack per day but hasn't smoked today because of her progrsesive dyspnea at rest. She reports associated nasal and sinus congestion, without headache or sinus tenderness, sneezing, rhinorrhea and post nasal drip. She was short of breath at first but it has gotten significantly worse over the past two days where she is extremely dyspneic at rest and ambulating several feet. She has been using her inhalers and nebulized albuterol at home with moderate relief but not sustained requiring frequent treatments. She called Dr. Leavitt is her monorail car operator because of the severity of her symptoms. She took prednisone 60mg this morning on her own and was told to come into the emergency department for evaluation. She denies any fevers or chills or sick contacts. She has just finished a one week course of metronidazole for a dental abscess. She does describe right chest wall pain/ pressure/tightness that is not exertional in nature and she attributes to anxiety and abdominal soreness related to coughing. She states she has some gagging after coughing but no nausea, vomiting, abdominal pain, constipation, diarrhea or dysuria. In the ED, she was given magnesium, solumedrol, and nebulized albuterol and ipatropium. Allergies/Medications Allergies: Coded Allergies: clindamycin (Severe, FULL BODY RASH 09/13/17) Penicillins (Intermediate, RASH 09/13/17) Home Med list Albuterol Sulfate 2.5 MG/3 ML (0.083 %) VIAL.NEB 1 Vial INH/WESLY AD PRN RESP. (Reported) Albuterol Sulfate (Ventolin Hfa) 90 MCG HFA.AER.AD 2 PUF INH Q4-6 PRN PRN WHEEZING/SHORTNESS OF BREATH Budesonide/Formoterol Fumarate (Symbicort 160-4.5 Mcg Inhaler) 160 MCG-4.5 MCG/ ACTUATION HFA.AER.AD 2 PUF INH BID copd Olanzapine (Zyprexa) 10 MG TABLET 1 TAB PO QPM mental health Roflumilast (Daliresp) (Unknown Strength) TABLET (Unknown Dose) UNKNOWN ( Reported) Compliance With Home Meds: GOOD Past History Travel History Traveled to [place] past 21 day No Medical History Neurological: NONE EENT: NONE Cardiovascular: WPW SYNDROME Respiratory: COPD Gastrointestinal: NONE Hepatic: NONE Renal: NONE Musculoskeletal: NONE Psychiatric: bipolar disease, depression Endocrine: NONE Blood Disorders: NONE Cancer(s): NONE BOARDING MOTHER/Reproductive: NONE History of MRSA: No History of VRE: No History of CDIFF: No Surgical History Surgical History: appendectomy Past Family/Social History Family History Relations & Conditions if any FATHER Family hx of lung cancer MOTHER FH: diabetes mellitus Relation not specified for: *No pertinent family history Psychosocial History Who Do You Live With? spouse Primary Language: [place] Smoking Status: Current Everyday Smoker Functional Ability ADLs Independent: dressing, eating, toileting, bathing. Ambulation: independent IADLs Independent: shopping, housework, finances, food prep, telephone, transportation , medication admin. Review of Systems Review of Systems Constitutional: Denies: chills, diaphoresis, fever. EENTM: Reports: nasal congestion, tooth pain. Cardiovascular: Reports: chest pain. Denies: edema, orthopena, palpitations, peripheral edema. Respiratory: Reports: cough, short of breath, sputum production, wheezing. Denies: hemoptysis. GI: Reports: no symptoms. Genitourinary: Reports: no symptoms. Musculoskeletal: Reports: no symptoms. Skin: Reports: no symptoms. Neurological/Psychological: Reports: anxiety. Hematologic/Endocrine: Reports: no symptoms. Immunologic/Allergic: Reports: no symptoms. All Other Systems: Reviewed and Negative Exam & Diagnostic Data Last 24 Hrs of Vital Signs/I&O Vital Signs Date Time Temp Pulse Resp B/P B/P Pulse O2 O2 Flow FiO2 Mean Ox Delivery Rate 09/23 2300 98.0 109 20 118/78 92 Nasal 2.0L Cannula 09/239 92 Nasal 2.0L Cannula 09/23 2158 Nasal 2.0L Cannula 09/24 1951 96.6 106 22 119/68 94 Nasal 2.0L Cannula 09/23 1925 92 Nasal 4.5L Cannula 09/23 1734 94 Nasal 2.0L Cannula 09/23 1729 94 Nasal 2.0L Cannula 09/23 1716 119 26 124/66 94 Nasal 2.0L Cannula 09/23 1641 98.7 127 16 133/77 93 Nasal 2.0L Cannula Intake & Output 09/24 0800 09/24 0000 09/23 1600 Intake Total 0 Output Total Balance 0 Intake, Oral 0 Patient 81.25 kg Weight Weight Bed scale Measurement Method Physical Exam General Appearance Alert, Oriented X3, Cooperative, moderate respiratory distress tachypnea and tripoding HEENT Atraumatic, PERRLA, EOMI, Mucous Membr. moist/pink Neck Supple, No JVD Cardiovascular Regular Rate, Normal S1, Normal S2, No Murmurs Lungs diminished air entry bibasilar, expiratory wheezing and rhonchi diffusely, accessory muscle use Abdomen Normal Bowel Sounds, Soft, No Tenderness, No Masses Extremities No Clubbing, No Cyanosis, Normal Pulses, trace LE edema Last 24 Hrs of Labs/Kameron: Laboratory Tests 09/23/17 1730: pH 7.43, pCO2 33 L, pO2 61 L, HCO3 21, ABG O2 Sat (Measured) 89.0 L, P-50 ( Temp Corrected) N, Carboxyhemoglobin 3.9, O2 Concentration % 2L, Temperature 98.7, O2 Delivery Method NC, Phlebotomy Draw Site RIGHT RADIAL 09/23/17 1701: Anion Gap 17 H, Estimated GFR > 60, BUN/Creatinine Ratio 13.8, Glucose 186 H, Calcium 10.1, Total Bilirubin 0.5, AST 16, ALT 21, Alkaline Phosphatase 100, Troponin I < 0.01, Total Protein 7.8, Albumin 4.6, Globulin 3.2, Albumin/ Globulin Ratio 1.4, D-Dimer High Sensitivty < 200, CBC w Diff MAN DIFF ORDERED, RBC 5.58 H, MCV 84.6, MCH 28.0, MCHC 33.1, RDW 15.6 H, MPV 8.7, Gran % 87.7 H , Lymphocytes % 6.2 L, Monocytes % 5.3, Eosinophils % 0, Basophils % 0.8, Absolute Granulocytes 15.4 H, Segmented Neutrophils 86 H, Band Neutrophils 1, Absolute Lymphocytes 1.1 L, Lymphocytes 7 L, Monocytes 6, Absolute Monocytes 0.9 H, Absolute Eosinophils 0, Absolute Basophils 0.1, Platelet Estimate INCREASED, Normocytic RBCs VERIFIED, Normochromic RBCs VERIFIED Microbiology 09/23 2314 LOWER RESP: Respiratory Culture - RES 09/23 2314 LOWER RESP: Gram Stain - RES Diagnostic Data EKG Results sinus tachycarida without ischemic changes CXR Results no opacities or consolidation suggestive of pneumonia Assessment/Plan Assessment: 52 year old female with past medical history of bipolar, COPD, alpha 1 antitrypsin, smoking 40 pack years, and Blevins parkinson white s/p ablation presents with two days of productive cough and progressive dyspnea. COPD exacerbation: Check peak flow Titrate supplemental oxygen to an SpO2 > 92% TRC evaluation Solumedrol 80mg IV q8h Continue nebulized albuterol and ipatropium Pulmonology consultation in the AM Chest x-ray negative for infiltrates Consider CT, pt was schedule for low dose lung cancer screening CT Azithromycin for bronchitis as cause for JEWELRY CONSULTANT exacerbation Afebrile, leukocytosis with steroids taken this morning and recent dental abscess Hyperglycemia: Likely secondary to steroids Accuchecks TIDAC and novolog sliding scale coverage Check hemoglobin a1c Smoking: Nicotine patch 21mg Bipolar: Continue zyprexa WPW: s/p ablation Currently in sinus tachycardia Avoid negative chronotropic medications Heart healthy diet DVT ppx-lovenox 40mg subcutaneous daily Full code As Ranked By This Provider Problem List: 1. COPD exacerbation 2. WPW (Xeiyi-Iabdjpzdj-Iomhn syndrome) Core Measures/Misc (03/14) Acute Coronary Syndrome ACS Diagnosis: No Congestive Heart Failure Congestive Heart Failure Diagnosis No Cerebrovascular Accident CVA/TIA Diagnosis: No VTE (View Protocol) VTE Risk Factors Age>40 No Mechanical VTE Prophylaxis d/t N/A MechProphylax Ordered No VTE Pharm Prophylaxis d/t NA PharmProphylax ordered Sepsis (View protocol) Sepsis Present: No Valeria LOZANO,Iselana 09/23/17 2200: Resident Review Statement Resident Statement: examined this patient, discussed with clinical nursing intern, agreed with clinical nursing intern, discussed with family Other Findings: 52-year-old smoker female with PMH COPD not on home O2, asthma, WPW s/p ablation 5 months ago who presented with 2 days of progressive dyspnea. Patient 's symptoms started as cough and wheezing that progressed over the past 2 days to dyspnea and cough productive of yellow nonbloody sputum. Earlier today the patient self medicated with 60 mg of prednisone with only mild improvement of her symptoms The patient was admitted on April 2017 for COPD exacerbation, at that time she improved but developed SVT for which she was sent for ablation. 10 days ago she had facial abscess, she was given antibiotic for 7 days, a few days ago the abscess started to drain into her oral cavity. Currently she finished antibiotic and symptom free. She currently denies fever, chills, chest pain, palpitation, recent travel, or sick contacts. On admission: Vitals were stable but required 2 L of oxygen.Physical Exam: HEENT WNL, CVS normal S1/S2 without MRGs, Resp diffuse wheezing. GI NT/ND X Q4. CXray: No significant abnormalities. Peak flow: 100 Labs: Leukocytosis, mild hyperglycemia up to 180, RFT and LFTs are WNL. D-dimer <200. Assessment 52-year-old smoker female who presented acute hypoxic respiratory failure with oxygen saturation of 88% on room air. She reported cough productive yellow sputum and severe wheezing and dyspnea. ABG PH 7.43 and CO2 33. This picture most likely a mix of COPD exacerbation and asthma exacerbation. Plan #Acute hypoxic respiratory failure most likely asthma and COPD exacerbation * Admit to telemetry because of history of WPW * Start IV Solu-Medrol 40 mg every 8 * Start IV azithromycin daily * Guaifenesin Q6 * Sputum culture * Peak flow * Oxygen as needed * TRC/nebs [id number] * Pulmonology Dr. Leavitt consult in a.m. #Bipolar * Continue olanzapine # Hx of Steroid-induced hyperglycemia * Fingerstick glucose level * Diabetic diet * Insulin SS #WPW s/p ablation * Not currently on any medication for WPW * Monitoring telemetry #Smoking * Nicotine patch -Diabetic diet -DVT prophylaxis with Lovenox -Full code Raffaele Shah 09/24/17 0408: Attending MD Review Statement Attending Statement Attending MD Statement: examined this patient, discuss w/resident/PA/BREASTFEEDING EDUCATOR, agreed w/resident/PA/BREASTFEEDING EDUCATOR, reviewed EMR data (avail), reviewed images, amended to note Attending Assessment/Plan: CC: Worsening of shortness of breath PMH: Asthma/COPD, depression, current smoker, WPW syndrome S/P ablation Patient came to ER for 2 day history of worsening shortness of breath, excessive wheezing, productive cough with yellow colored sputum. Patient states that recently she has been dealing with oral infection, she had a swelling size of a tennis ball on right cheek, was seen by dentist and prescribed antibiotics, initially azithromycin which was not working so she was started on metronidazole on 09/15/2017. After starting of metronidazole after 2 days her swelling burst open inside her mouth with the pus discharge which she spit, but may have choked on part of it. After the discharge, infection improved and currently no symptoms. She is expected to get dental extraction on Wednesday. Meanwhile 2 days back she started to notice that her breathing was getting worse, she could not even walk a few steps, associated with wheezing. She also noticed excessive coughing with yellowish sputum production. She took 2 tablets of prednisone that she had from the past and then 2 tablets of azithromycin without much relief. She has been using her home nebulization without much relief, called her monorail car operator Dr. Leavitt who suggested to her to come to ER. She does not have any sick contacts, no recent travels, no flulike symptoms. Patient was admitted in the month of March 2017, was found to have arrhythmias secondary to her WPW syndrome, was discharged to [facility] and patient underwent ablation there. Since then patient had been asymptomatic for any tachycardias, does not take any medications for rhythm control. After that COPD exacerbation she did not have any episodes in between until today. Vitals: T max 98.7, pulse 120s, RR 16, blood pressure 133/77, saturating 92% on 2 L nasal cannula On exam: A O 3, cooperative, no acute distress, neck supple, JVD normal, no lymphadenopathy, mucosa moist, no focal neurological deficit, trace dependent edema, no obvious skin rashes or inflammation CVS: S1-S2, RRR. RS: Bilateral wheezing, prolonged expiration. Abdomen: Soft, NT, ND, bowel sounds present. No evidence of pus discharge in the mouth, no obvious lesions identified, peripheral pulses perfusion normal. Assessment and plan 52-year-old female with history of asthma and COPD, current smoker, WPW syndrome S/P ablation presented in ER for a 3 day history of shortness of breath, wheezing, productive cough with yellow colored sputum production. She was hypoxic up to 88% on room air at presentation in ER, was started on 2 L nasal cannula saturating 92%. Afebrile but tachycardic. She has extensive wheezing bilaterally with prolonged expiration, no JVD or leg swelling. She has mild leukocytosis which could be secondary to her recent steroid use. Chest x-ray does not show any evidence of pneumonia. ABG shows mild respiratory alkalosis with compensation, could be secondary to hyperventilation with asthma component. Patient has tachycardia in 120s, with a history of WPW and ablation, she would benefit from telemetry observation. + Asthma exacerbation with a component of COPD + Acute respiratory failure hypoxic + History of WPW syndrome S/P ablation, still in sinus tachycardia - Admit to telemetry - Continue telemetry monitoring - Try to wean off oxygen - IV methylprednisolone 40 mg every 8 hours - IV azithromycin - TRC nebulization with albuterol and ipratropium scheduled and when necessary - Mucinex scheduled twice a day - Continue rest of the home medications - Adequate pain control - DVT prophylaxis - Continue Accu-Cheks - Check influenza - Informed monorail car operator - Patient wants to go home before Wednesday for Easter.
[2017-09-23 23:00] VITALS: BP 118/78
--- NOTE | 2017-09-24 04:10 | Admission Certification ---
Admission Certification Certification Statement - As attending physician, I certify that at the time of - admission, based on clinical presentation, severity of - symptoms, need for further diagnostic testing and - therapeutic interventions, and risk of adverse outcomes - without in-hospital treatment, in my clinical assessment, - this patient requires an acute hospital stay for a minimum - of two nights or longer. I have also considered psychsocial - factors such as support system, advanced age, financial - issues, cognitive issues, and failed out-patient treatments, - past re-admission history, safety of patient, and lack of - compliance as applicable. Specific rationale supporting this admission is: COPD exacerbation
[2017-09-24 06:00] VITALS: BP 100/66
--- NOTE | 2017-09-24 07:53 | PN- Housestaff ---
Emma Morgan 09/24/17 0753: Subjective Follow-up For: #Asthma/COPD exacerbation #History of WPW syndrome S/P ablation, still in sinus tachycardia Tele-Events Since Last Visit: NSR overnight 50-90s Subjective: No overnight event. Patient was started on resp treatment and felt improved overall. Denied any chest pain, endorsed wheezing still. Would like to go home before Wednesday. Review of Systems Constitutional: Reports: see HPI. Objective Last 24 Hrs of Vital Signs/I&O Vital Signs Date Time Temp Pulse Resp B/P B/P Pulse O2 O2 Flow FiO2 Mean Ox Delivery Rate 09/24 0820 92 Nasal 1.0L Cannula 09/24 0600 98.4 87 20 100/66 94 09/24 0048 92 Nasal 2.0L Cannula 09/23 2300 98.0 109 20 118/78 92 Nasal 2.0L Cannula 09/23 2219 92 Nasal 2.0L Cannula 09/23 2159 Nasal 2.0L Cannula 09/23 1952 96.6 106 22 119/68 94 Nasal 2.0L Cannula 09/23 1925 92 Nasal 4.5L Cannula 09/23 1734 94 Nasal 2.0L Cannula 09/23 1729 94 Nasal 2.0L Cannula 09/23 1716 119 26 124/66 94 Nasal 2.0L Cannula 09/23 1641 98.7 127 16 133/77 93 Nasal 2.0L Cannula Intake & Output 09/24 1600 09/24 0800 09/24 0000 Intake Total 370 150 Output Total Balance 370 150 Intake, IV 270 Intake, Oral 100 150 Patient 81.25 kg Weight Weight Bed scale Measurement Method Physical Exam General Appearance: Alert, Oriented X3, Cooperative, No Acute Distress Cardiovascular: Regular Rate Lungs: Normal Air Movement, BL expiratory wheezing Abdomen: Soft, No Tenderness Neurological: Normal Speech, Strength at 5/5 X4 Ext Extremities: No Edema, Normal Pulses Current Medications: Current Medications Sig/Rosalina Start time Last Medication Dose Route Stop Time Status Admin Albuterol Sulfate 3 ML EVERY 4 HRS/AWAKE 09/24 0800 AC 09/24 INH 0819 Albuterol Sulfate 3 ML Q6 PRN 09/235 AC INH Albuterol Sulfate 3 ML ONCE ONE 09/23 1900 DC 09/23 INH 09/23 190 1925 Albuterol Sulfate 3 ML ONCE ONE 09/23 1715 DC 09/23 INH 09/23 1716 1729 Azithromycin 500 MG DAILY 09/23 2200 AC 09/24 Dextrose/Water 250 ML IV 0945 Budesonide/ 2 PUF BID 09/24 1124 UNVr Formoterol Fumarate INH Enoxaparin Sodium 40 MG DAILY 09/24 1000 AC 09/24 SC 0945 Guaifenesin 10 ML Q6P PRN 09/23 2230 DC PO Guaifenesin/Codeine 10 ML Q4P PRN 09/23 2245 AC 09/24 Phosphate PO 0949 Insulin Aspart 0 TIDAC 09/23 2115 AC 09/23 SC 2306 Ipratropium Dixie 2.5 ML EVERY 4 HRS/AWAKE 09/24 0800 AC 09/24 INH 0820 Ipratropium Dixie 2.5 ML ONCE ONE 09/23 2114 DC INH 09/23 211 Ipratropium Dix[place] 2.5 ML ONCE ONE 09/23 1715 DC 09/23 INH 09/23 1716 1729 Magnesium Sulfate 2 GM ONCE ONE 09/23 1715 DC 09/23 IV 09/23 1716 1733 Methylprednisolone 40 MG Q8 09/23 2199 AC 09/24 IV 0531 Methylprednisolone 0 .STK-MED ONE 09/23 1731 DC .ROUTE Methylprednisolone 125 MG ONCE ONE 09/23 1715 DC 09/23 IV 09/23 1716 1733 Nicotine 21 MG ONE TIME ONE 09/23 2245 DC 09/24 TOP 09/23 224 0016 Olanzapine 10 MG QPM 09/23 2199 AC 09/24 PO 0016 Ramelteon 8 MG ONCE ONE 09/23 2244 DC 09/24 PO 09/23 2246 0016 Last 24 Hrs of Lab/Kamerno Results Last 24 Hrs of Labs/Mics: Laboratory Tests 09/24/17 0623: Anion Gap 12, Estimated GFR > 60, BUN/Creatinine Ratio 16.7, Hemoglobin A1c 6.0 H, CBC w Diff NO MAN DIFF REQ, RBC 4.76, MCV 84.9, MCH 28.3, MCHC 33.3, RDW 15.5 H, MPV 8.8, Gran % 93.5 H, Lymphocytes % 5.1 L, Monocytes % 1.3 L, Eosinophils % 0.1, Basophils % 0, Absolute Granulocytes 13.5 H, Absolute Lymphocytes 0.7 L, Absolute Monocytes 0.2, Absolute Eosinophils 0, Absolute Basophils 0 09/23/17 1730: pH 7.43, pCO2 33 L, pO2 61 L, HCO3 21, ABG O2 Sat (Measured) 89.0 L, P-50 ( Temp Corrected) N, Carboxyhemoglobin 3.9, O2 Concentration % 2L, Temperature 98.7, O2 Delivery Method NC, Phlebotomy Draw Site RIGHT RADIAL 09/23/17 1701: Anion Gap 17 H, Estimated GFR > 60, BUN/Creatinine Ratio 13.8, Glucose 186 H, Calcium 10.1, Total Bilirubin 0.5, AST 16, ALT 21, Alkaline Phosphatase 100, Troponin I < 0.01, Total Protein 7.8, Albumin 4.6, Globulin 3.2, Albumin/ Globulin Ratio 1.4, D-Dimer High Sensitivty < 200, CBC w Diff MAN DIFF ORDERED, RBC 5.58 H, MCV 84.6, MCH 28.0, MCHC 33.1, RDW 15.6 H, MPV 8.7, Gran % 87.7 H , Lymphocytes % 6.2 L, Monocytes % 5.3, Eosinophils % 0, Basophils % 0.8, Absolute Granulocytes 15.4 H, Segmented Neutrophils 86 H, Band Neutrophils 1, Absolute Lymphocytes 1.1 L, Lymphocytes 7 L, Monocytes 6, Absolute Monocytes 0.9 H, Absolute Eosinophils 0, Absolute Basophils 0.1, Platelet Estimate INCREASED, Normocytic RBCs VERIFIED, Normochromic RBCs VERIFIED Microbiology 09/24 0650 NASOPHARYN: Influenza Virus A & B Rapid Smear - COMP 09/23 2314 LOWER RESP: Respiratory Culture - RES 09/23 2314 LOWER RESP: Gram Stain - RES Assessment/Plan Assessment: 52 year old female with past medical history of bipolar, COPD, alpha 1 antitrypsin, smoking 40 pack years, and Blevins parkinson white s/p ablation presents with two days of productive cough and progressive dyspnea. COPD exacerbation: - Check peak flow - Titrate supplemental oxygen to an SpO2 > 92% - TRC evaluation - Continue Solumedrol 80mg IV q8h, pending Pulm input to titrate - Continue nebulized albuterol and ipatropium - Chest x-ray negative for infiltrates - Consider CT, pt was schedule for low dose lung cancer screening CT - Azithromycin for bronchitis as cause for COPD exacerbation - Afebrile, leukocytosis with steroids taken this morning and recent dental abscess Hyperglycemia: - Likely secondary to steroids - Accuchecks TIDAC and novolog sliding scale coverage - hemoglobin a1c 6.0, elevated from 5.6 from 02/2017 Smoking: Nicotine patch 21mg Bipolar: Continue zyprexa WPW: s/p ablation Currently in sinus tachycardia reverted to NSR overnight. Avoid negative chronotropic medications Heart healthy diet DVT ppx-lovenox 40mg subcutaneous daily Full code Problem List: 1. COPD exacerbation 2. S/P ablation of accessory bypass tract Pain Ratin Pain Location: NA Pain Goal: Remain pain free Pain Plan: see AP Tomorrow's Labs & Rationales: CBC Ya LOZANO,Ld 09/24/17 1247: Attending MD Review Statement Attending Statement Attending MD Statement: examined this patient, discuss w/resident/PA/SALES UTILITY REPRESENTATIVE, agreed w/resident/PA/SALES UTILITY REPRESENTATIVE, reviewed EMR data (avail), discussed with nursing Attending Assessment/Plan: Patient seen and examined. Plan of care discussed with the medical team and the patient. Available lab work and radiology test reports were reviewed. Patient tachycardia has resolved. Her difficulty breathing also has decreased to some extent. She is afebrile and other vital signs are stable. She is requiring 1 L oxygen 92% saturation. Chest exam shows bilateral diffuse expiratory wheezing and scattered crepitations. Heart sounds S1 plus S2. Neuro exam nonfocal. Abdomen soft nontender. Labs show decrease WBC count of 14.5. Chemistry exam is within normal limits and hemoglobin A1c is 6.. Chest x-ray upon admission was negative for pneumonia. Assessment plan COPD exacerbation Tachycardia mostly sinus History WPW syndrome status post ablation Plan Continue Zithromax and Solu Medrol, TRC nebs Taper oxygen Out of bed and ambulate Possible discharge tomorrow since patient wants to be home for [facility]
[2017-09-24 08:11] LABS: ABSOLUTE BASOPHIL COUNT 0 /CUMM (0.0-0.2); ABSOLUTE EOSINOPHIL COUNT 0 /CUMM (0.0-0.7); ABSOLUTE GRANULOCYTE CT 13.5 /CUMM (1.4-6.5); ABSOLUTE MONOCYTE COUNT 0.2 /CUMM (0.10-0.60)
[2017-09-24 08:25] LABS: ABSOLUTE LYMPH COUNT 0.7 /CUMM (1.2-3.4); BASOPHIL % 0 % (0.0-2.0); EOSINOPHIL % 0.1 % (0-5); MEAN CORPUSCULAR HGB 28.3 PG (27.0-31.0); MEAN CORPUSCULAR HGB CONC 33.3 G/DL (33.0-37.0); MEAN CORPUSCULAR VOLUME 84.9 FL (81.0-99.0); MEAN PLATELET VOLUME 8.8 FL (7.4-10.4); PLATELET COUNT 343 /CUMM (130-400); RBC DISTRIBUTION WIDTH 15.5 % (11.5-14.5); RED BLOOD CELL CT 4.76 /CUMM (4.20-5.40); WHITE BLOOD CELL COUNT 14.5 /CUMM (4.8-10.8)
[2017-09-24 08:29] LABS: HEMATOCRIT 40.4 % (37-47)
[2017-09-24 10:00] LABS: GRANULOCYTE % 93.5 % (42.2-75.2)
--- NOTE | 2017-09-24 13:37 | Cons- Pulmonary ---
General Information and HPI Consulting Request Date of Consult: 09/24/17 Requested By: Dr. Shah Reason for Consult: COPD exacerbation Source of Information: patient Exam Limitations: no limitations History of Present Illness: 52 year old woman. Hx of COPD. CXR consistent with hyperinflation Severe emphysema, BD response. Proair for rescue - Proventil however works Symbicort 2 puffs am and 2 puffs pm. Dyspnea on exertion. No leg edema, no cp. No n/v/d/c. +Anxiety. WPW history. Has declined o2 previously. Feeling better since admission. Allergies/Medications Allergies: Coded Allergies: clindamycin (Severe, FULL BODY RASH 09/13/17) Penicillins (Intermediate, RASH 09/13/17) Home Med List: Albuterol Sulfate 2.5 MG/3 ML (0.083 %) VIAL.NEB 1 Vial INH/WESLY AD PRN RESP. (Reported) Albuterol Sulfate (Ventolin Hfa) 90 MCG HFA.AER.AD 2 PUF INH Q4-6 PRN PRN WHEEZING/SHORTNESS OF BREATH Budesonide/Formoterol Fumarate (Symbicort 160-4.5 Mcg Inhaler) 160 MCG-4.5 MCG/ ACTUATION HFA.AER.AD 2 PUF INH BID copd Olanzapine (Zyprexa) 10 MG TABLET 1 TAB PO QPM mental health Roflumilast (Daliresp) (Unknown Strength) TABLET (Unknown Dose) UNKNOWN ( Reported) Review of Systems Comments 18 point review of systems was performed and reviewed. Please see pertinent positives and pertinent negatives in the HPI. Otherwise ROS is negative. 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 Home Who Do You Live With? spouse Services at Home: None Primary Language: Luxembourgish Smoking Status: Current Everyday Smoker Functional Ability ADLs Independent: dressing, eating, toileting, bathing. Ambulation: independent IADLs Independent: shopping, housework, finances, food prep, telephone, transportation , medication admin. Exam & Diagnostic Data Last 24 Hrs of Vital Signs/I&O Vital Signs Date Time Temp Pulse Resp B/P B/P Pulse O2 O2 Flow FiO2 Mean Ox Delivery Rate 09/24 0820 92 Nasal 1.0L Cannula 09/24 0600 98.4 87 20 100/66 94 09/24 0048 92 Nasal 2.0L Cannula 09/23 2300 98.0 109 20 118/78 92 Nasal 2.0L Cannula 09/23 2219 92 Nasal 2.0L Cannula 09/23 2159 Nasal 2.0L Cannula 09/23 195 96.6 106 22 119/68 94 Nasal 2.0L Cannula 09/23 1925 92 Nasal 4.5L Cannula 09/23 1734 94 Nasal 2.0L Cannula 09/23 1729 94 Nasal 2.0L Cannula 09/23 1716 119 26 124/66 94 Nasal 2.0L Cannula 09/23 1641 98.7 127 16 133/77 93 Nasal 2.0L Cannula Intake & Output 09/24 1600 09/24 0800 09/24 0000 Intake Total 370 150 Output Total Balance 370 150 Intake, IV 270 Intake, Oral 100 150 Patient 179 lb Weight Weight Bed scale Measurement Method Physical Exam Other Physical Findings: Generally - Awake Head and neck - normocephalic, atraumatic, EOMI grossly intact Cardiovascular - S1, S2 Lungs -rare rhonchi Abdomen - Bowel sounds positive, soft, non-tender Extremities - without edema Last 48 Hrs of Labs/[place]: Laboratory Tests 09/24/17 0623: Anion Gap 12, Estimated GFR > 60, BUN/Creatinine Ratio 16.7, Hemoglobin A1c 6.0 H, CBC w Diff NO MAN DIFF REQ, RBC 4.76, MCV 84.9, MCH 28.3, MCHC 33.3, RDW 15.5 H, MPV 8.8, Gran % 93.5 H, Lymphocytes % 5.1 L, Monocytes % 1.3 L, Eosinophils % 0.1, Basophils % 0, Absolute Granulocytes 13.5 H, Absolute Lymphocytes 0.7 L, Absolute Monocytes 0.2, Absolute Eosinophils 0, Absolute Basophils 0 09/23/17 1730: pH 7.43, pCO2 33 L, pO2 61 L, HCO3 21, ABG O2 Sat (Measured) 89.0 L, P-50 ( Temp Corrected) N, Carboxyhemoglobin 3.9, O2 Concentration % 2L, Temperature 98.7, O2 Delivery Method NC, Phlebotomy Draw Site RIGHT RADIAL 09/23/17 1701: Anion Gap 17 H, Estimated GFR > 60, BUN/Creatinine Ratio 13.8, Glucose 186 H, Calcium 10.1, Total Bilirubin 0.5, AST 16, ALT 21, Alkaline Phosphatase 100, Troponin I < 0.01, Total Protein 7.8, Albumin 4.6, Globulin 3.2, Albumin/ Globulin Ratio 1.4, D-Dimer High Sensitivty < 200, CBC w Diff MAN DIFF ORDERED, RBC 5.58 H, MCV 84.6, MCH 28.0, MCHC 33.1, RDW 15.6 H, MPV 8.7, Gran % 87.7 H , Lymphocytes % 6.2 L, Monocytes % 5.3, Eosinophils % 0, Basophils % 0.8, Absolute Granulocytes 15.4 H, Segmented Neutrophils 86 H, Band Neutrophils 1, Absolute Lymphocytes 1.1 L, Lymphocytes 7 L, Monocytes 6, Absolute Monocytes 0.9 H, Absolute Eosinophils 0, Absolute Basophils 0.1, Platelet Estimate INCREASED, Normocytic RBCs VERIFIED, Normochromic RBCs VERIFIED Microbiology 09/24 0650 NASOPHARYN: Influenza Virus A & B Rapid Smear - COMP Assessment/Plan Impression/Plan: Impression 52 year old woman Acute Exacerbation of Chronic obstructive lung disease -reduce solumedrol to 40mg iv q12h -RESUME home symbicort 160/4.5 2 puffs BID with rinsing of the mouth -TRC/Nebs and PROAIR for rescue -WPW history -was rx Daliresp however has not taken it and will not recommend further use at this time -pulse oximeter recommended -assess o2 needs prior to dc -she understands the risks of not pursuing o2 therapy, this will be addressed on an ongoing basis. -smoking cessation/counseled -MS HARVEY discussed with patient and discussed that her children can be screened -LDCT referral (as an outpatient) - already referred Tobacco dependence syndrome - I have discussed in detail and counseled the patient regarding the benefit of smoking cessation. Discussed options such as nicotine replacement therapy. DVT prophylaxis at all times Consult Acknowledgment - Thank you for your consult request.
[2017-09-24 14:15] VITALS: BP 120/70
[2017-09-24] MEDS ORDERED: PREDNISONE10 M2 PO (14:56)
--- NOTE | 2017-09-24 14:57 | Patient Discharge Instructions ---
Discharge Instructions General Discharge Information Special Instructions: - Please follow up with your print production associate Dr. Leavitt within 1-2 weeks of discharge. - Please follow up with your primary care physician within 1-2 weeks of discharge. Inform your primary care physician of this admission to [facility]. - Continue your current medications per discharge instructions. - Please watch for these problems: Fever, Chills, Nausea, Vomiting, Shortness of Breath, Productive Cough, Chest Pain/Discomfort, Abdominal Pain, Active Bleeding or Bloody urine/stool. Diet Continue normal diet: Yes Activity Full Activity/No Limits: Yes Acute Coronary Syndrome Inclusion Criteria At DC or during hospital stay patient has or had the following: ACS DIAGNOSIS No Discharge Core Measures Meds if any: Prescribed or Continued at Discharge Meds if any: NOT Prescribed or Continued at Discharge Congestive Heart Failure Inclusion Criteria At DC or during hospital stay patient has or had the following: CHF DIAGNOSIS No Discharge Core Measures Meds if any: Prescribed or Continued at Discharge Meds if any: NOT Prescribed or Continued at Discharge Cerebrovascular accident Inclusion Criteria At DC or during hospital stay patient has or had the following: CVA/TIA Diagnosis No Discharge Core Measures Meds if any: Prescribed or Continued at Discharge Meds if any: NOT Prescribed or Continued at Discharge Venous thromboembolism Inclusion Criteria VTE Diagnosis No VTE Type NONE VTE Confirmed by (Test) NONE Discharge Core Measures - Per Current guidelines, there needs to be overlap - treatment for the first 5 days of Warfarin therapy. - If discharged on Warfarin prior to 5 days of - overlap therapy, the patient will need to be - assessed for post discharge needs including - *Post discharge parental anticoagulation - *Warfarin and/or parental anticoagulation education - *Follow up date to check INR post discharge At least 5 days overlap therapy as Inpatient No Meds if any: Prescribed or Continued at Discharge Note: Overlap Therapy is Warfarin and Anticoagulant Meds if any: NOT Prescribed or Continued at Discharge
--- NOTE | 2017-09-24 16:00 | Discharge Summary ---
Visit Information Visit Dates Admission Date: 09/23/17 Discharge Date: 09/27/2017 Hospital Course Course Attending Physician: Ya LOZANO,dL Primary Care Physician: Paulo Chery MD Hospital Course: Ms. Woo is a 52 year old female with past medical history of bipolar, COPD, alpha 1 antitrypsin, smoking 40 pack years, and Blevins parkinson white s/p ablation presents with two days of productive cough and progressive dyspnea. On admission: Vitals stable but required 2 L of oxygen. CXR: No significant abnormalities. Peak flow: 100 Labs: Leukocytosis, mild hyperglycemia up to 180, RFT and LFTs are WNL. D-dimer <200. Patient was admitted to telemetry for the following managements #COPD exacerbation: On admission, patient was provided with supplemental oxygen to keep SPO2 greater than 92%, TRC nebulizer including Symbicort and pro-air, and started IV Solu- Medrol, later weaned down to oral prednisone and was discharged planning on prednisone taper. Patient's chest x-ray had been negative for any infiltrate. Prior to discharge, patient's lung sounds clear was out expiratory wheezing, however still require oxygen therapy. Patient was advised to pursue home oxygen therapy as much as needed, and patient understood the risks of not pursuing oxygen therapy. Patient was also consult smoking cessation, and discussed the AA1T condition with the patient H was and should be screened. Patient was prescribed in Daliresp before however she has not been taking, and will not continue after discharge. Patient was scheduled for low-dose CT for outpatient follow-up. Dr. Leavitt and I had a discussion regarding use of Home oxygen with patient's current clinical condition. Patient's desatting <88% during ambulation in this hospital stay would definitely qualify her for home oxygen use (patient acknowledged this oxygen requirement from last hospital stay as well). However, patient would not want home oxygen for now and would think over it, especially if unfortunately in future she is re-hospitalized with similar symptoms for the third time. At present, patient would go home without home oxygen arrangement and will follow up with Pulm in outpatient. #Hyperglycemia: Patient's hyperglycemia was likely due to use of steroids. Patient was continued on Accu-Cheks 3 times daily before meals and NovoLog sliding scale. Her hemoglobin HbA1c was 6.0, elevated from 5.6509/2017. Patient may need outpatient diabetic follow-up. #Smoking: Patient was provided with nuclear meds 21 mg daily, and was consulted on smoking cessation. #Bipolar: Patient was continue home dose of Zyprexa, and provided Xanax as needed for anxiety. #Hx of WPW s/p Ablation Upon admission, patient was in sinus tachycardia, was reverted to normal sinus rhythm overnight of hospital stay. Patient was ordered on negative chronotropic medications. The tachycardia was most likely related to her respiratory stress. Heart healthy diet DVT ppx-lovenox 40mg subcutaneous daily Full code Allergies: Coded Allergies: clindamycin (Severe, FULL BODY RASH 09/13/17) Penicillins (Intermediate, RASH 09/13/17) Pertinent Lab Results: SERVICE DATE: 09/23/17 EXAM TYPE: RAD - XRY-PORTABLE CHEST XRAY IMPRESSION: Unremarkable examination. Disposition Summary Disposition Principal Diagnosis: #COPD exacerbation #Hyperglycemia #Active smoker #Hx of Bipolar #Hx of WPW s/p ablation 04/2017 Additional Diagnosis: As above Discharge Disposition: home or self care Discharge Instructions General Discharge Information Code Status: Full Code Patient's Diet: Heart Healthy Patient's Activity: As tolerated Follow-Up Instructions/Appts: - Please follow up with your snaker tractor driver Dr. Leavitt within 1-2 weeks of discharge. - Please follow up with your primary care physician within 1-2 weeks of discharge. Inform your primary care physician of this admission to [facility]. - Continue your current medications per discharge instructions. - Please watch for these problems: Fever, Chills, Nausea, Vomiting, Shortness of Breath, Productive Cough, Chest Pain/Discomfort, Abdominal Pain, Active Bleeding or Bloody urine/stool. Medications at Discharge Discharge Medications: Stop taking the following medications: Roflumilast (Daliresp) (Unknown Strength) TABLET Qty = 30 Continue taking these medications: Budesonide/Formoterol Fumarate (Symbicort 160-4.5 Mcg Inhaler) 160 MCG-4.5 MCG/ ACTUATION HFA.AER.AD 2 Puff Inhale through mouth TWICE DAILY Qty = 1 Comments: Last Taken:09/27/17 Time: 8:00 AM Albuterol Sulfate (Ventolin Hfa) 90 MCG HFA.AER.AD 2 Puff Inhale through mouth EVERY 4-6 HOURS NEEDED as needed for WHEEZING /SHORTNESS OF BREATH Qty = 1 Comments: DID NOT RECEIVE WHILE IN HOSPITAL Olanzapine (Zyprexa) 10 MG TABLET 1 Tablet ORAL Every night Qty = 30 Comments: Last Taken:09/26/17 Time: 9:45 PM Albuterol Sulfate (Albuterol Sulfate) 2.5 MG/3 ML (0.083 %) VIAL.NEB 1 Vial Inhale Solution As Directed as needed for RESP. Qty = 270 Comments: Last Taken:09/27/17 Time: 12:00 PM Start taking the following new medications: Alprazolam (Alprazolam) 0.5 MG TABLET 0.5 Milligram ORAL THREE TIMES DAILY as needed for ANXIETY Qty = 10 No Refills Comments: Last Taken:09/27/17 Time: 8:00 AM Codeine Phosphate/Guaifenesi (Guaifenesin AC Cough Syrup) 10 MG-100 MG/5 ML LIQUID 10 Milliliters ORAL EVERY 4 HOURS NEEDED as needed for COUGH Qty = 1 No Refills Instructions: . Comments: Last Taken:09/27/17 Time: 8:00 AM Prednisone (Prednisone) 10 MG TABLET 1 Tablet ORAL DAILY Qty = 57 No Refills Comments: 09/28-4:Take 6 tablets daily 09/30-7:Take 5 tablets daily 10/03-10:Take 4 tablets daily 10/06-:Take 3 tablets daily 10/09-16:Take 2 tablets daily 10/12-:Take 1 tablet daily 10/15:STOP Last Taken:09/27/17 Time: 8:00 AM Copies To: Vik LOZANO,Paulo Delaney Attending MD Review Statement Documenting Attending: Tila Bella MD Other Findings: Patient seen and examined. Labs and imaging noted. Her difficulty breathing also has decreased to some extent. She remains on oxygen now 2L. She is afebrile and other vital signs are stable. Chest x-ray upon admission was negative for pneumonia. Assessment plan 1. COPD exacerbation 2. Tachycardia mostly sinus 3. History WPW syndrome status post ablation Plan Continue Zithromax and PO steroid taper, TRC nebs Taper oxygen Out of bed and ambulate Antcipate dc soon with outpatient referral to Business Planning Manager for PFTs.
[2017-09-24 23:38] VITALS: BP 94/60
[2017-09-25 06:56] VITALS: BP 114/78
[2017-09-25 07:46] LABS: ABSOLUTE BASOPHIL COUNT 0 /CUMM (0.0-0.2); ABSOLUTE EOSINOPHIL COUNT 0 /CUMM (0.0-0.7); ABSOLUTE GRANULOCYTE CT 15.2 /CUMM (1.4-6.5); ABSOLUTE LYMPH COUNT 0.8 /CUMM (1.2-3.4); ABSOLUTE MONOCYTE COUNT 0.4 /CUMM (0.10-0.60); BASOPHIL % 0.2 % (0.0-2.0); EOSINOPHIL % 0 % (0-5); GRANULOCYTE % 92.3 % (42.2-75.2); HEMATOCRIT 42.3 % (37-47); MEAN CORPUSCULAR HGB 27.7 PG (27.0-31.0); MEAN CORPUSCULAR HGB CONC 32.6 G/DL (33.0-37.0); MEAN CORPUSCULAR VOLUME 85.1 FL (81.0-99.0); MEAN PLATELET VOLUME 8.8 FL (7.4-10.4); PLATELET COUNT 369 /CUMM (130-400); RBC DISTRIBUTION WIDTH 15.6 % (11.5-14.5); RED BLOOD CELL CT 4.97 /CUMM (4.20-5.40)
[2017-09-25 10:00] LABS: WHITE BLOOD CELL COUNT 16.5 /CUMM (4.8-10.8)
--- NOTE | 2017-09-25 11:09 | PN- Att Addend ---
Attending Addendum Attending Brief Note Attending MD Statement: examined this patient, discuss w/resident/PA/TOWERMAN, agreed w/resident/PA/TOWERMAN, reviewed EMR data (avail), discussed with nursing Attending Assessment/Plan: Patient seen and examined. Plan of care discussed with the medical team, Dr. Leavitt and the patient. Available lab work and radiology test reports were reviewed. Her difficulty breathing also has decreased to some extent. She remains on oxygen now 1.5 L. She is afebrile and other vital signs are stable. oxygen 94% saturation. Chest exam shows bilateral expiratory wheezing and scattered crepitations. Heart sounds S1 plus S2. Neuro exam nonfocal. Abdomen soft nontender. Chest x-ray upon admission was negative for pneumonia. Assessment plan COPD exacerbation Tachycardia mostly sinus History WPW syndrome status post ablation Plan Continue Zithromax and Solu Medrol, TRC nebs Taper oxygen Out of bed and ambulate Patient is not stable for discharge Current Medications Sig/Rosalina Start time Last Medication Dose Route Stop Time Status Admin Albuterol Sulfate 3 ML .[AD] PRN 09/24 1500 CAN INH Albuterol Sulfate 3 ML EVERY 4 HRS/AWAKE 09/24 0800 AC 09/25 INH 0828 Albuterol Sulfate 3 ML Q6 PRN 09/23 2115 AC INH Azithromycin 500 MG DAILY 09/23 2200 AC 09/25 Dextrose/Water 250 ML IV 0901 Budesonide/ 2 PUF BID 09/24 1124 AC 09/25 Formoterol Fumarate INH 0750 Enoxaparin Sodium 40 MG DAILY 09/24 1000 AC 09/25 SC 0901 Guaifenesin/Codeine 10 ML Q4P PRN 09/23 2245 AC 09/25 Phosphate PO 0901 Insulin Aspart 0 TIDAC 09/23 2115 AC 09/24 SC 1800 Ipratropium Sulphur 2.5 ML EVERY 4 HRS/AWAKE 09/24 0800 AC 09/25 INH 0829 Methylprednisolone 40 MG Q12 09/24 2200 AC 09/25 IV 0901 Methylprednisolone 40 MG Q8 09/23 2200 DC 09/24 IV 1431 Nicotine 21 MG ONE TIME ONE 09/24 2215 DC 09/25 TOP 09/24 2216 0102 Olanzapine 10 MG QPM 09/23 2200 AC 09/24 PO 2217 Patient Medication 1 ED ONE ONE 09/24 1230 DC 09/24 Teaching ED 09/24 1231 1230 Ramelteon 8 MG ONCE ONE 09/24 2044 DC 09/24 PO 09/24 2045 221 Laboratory Tests 09/25/17 0623: CBC w Diff NO MAN DIFF REQ, RBC 4.97, MCV 85.1, MCH 27.7, MCHC 32.6 L, RDW 15.6 H, MPV 8.8, Gran % 92.3 H, Lymphocytes % 5.0 L, Monocytes % 2.5, Eosinophils % 0, Basophils % 0.2, Absolute Granulocytes 15.2 H, Absolute Lymphocytes 0.8 L , Absolute Monocytes 0.4, Absolute Eosinophils 0, Absolute Basophils 0 09/24/17 0623: Anion Gap 12, Estimated GFR > 60, BUN/Creatinine Ratio 16.7, Hemoglobin A1c 6.0 H, CBC w Diff NO MAN DIFF REQ, RBC 4.76, MCV 84.9, MCH 28.3, MCHC 33.3, RDW 15.5 H, MPV 8.8, Gran % 93.5 H, Lymphocytes % 5.1 L, Monocytes % 1.3 L, Eosinophils % 0.1, Basophils % 0, Absolute Granulocytes 13.5 H, Absolute Lymphocytes 0.7 L, Absolute Monocytes 0.2, Absolute Eosinophils 0, Absolute Basophils 0 09/23/17 1730: pH 7.43, pCO2 33 L, pO2 61 L, HCO3 21, ABG O2 Sat (Measured) 89.0 L, P-50 ( Temp Corrected) N, Carboxyhemoglobin 3.9, O2 Concentration % 2L, Temperature 98.7, O2 Delivery Method NC, Phlebotomy Draw Site RIGHT RADIAL 09/23/17 1701: Anion Gap 17 H, Estimated GFR > 60, BUN/Creatinine Ratio 13.8, Glucose 186 H, Calcium 10.1, Total Bilirubin 0.5, AST 16, ALT 21, Alkaline Phosphatase 100, Troponin I < 0.01, Total Protein 7.8, Albumin 4.6, Globulin 3.2, Albumin/ Globulin Ratio 1.4, D-Dimer High Sensitivty < 200, CBC w Diff MAN DIFF ORDERED, RBC 5.58 H, MCV 84.6, MCH 28.0, MCHC 33.1, RDW 15.6 H, MPV 8.7, Gran % 87.7 H , Lymphocytes % 6.2 L, Monocytes % 5.3, Eosinophils % 0, Basophils % 0.8, Absolute Granulocytes 15.4 H, Segmented Neutrophils 86 H, Band Neutrophils 1, Absolute Lymphocytes 1.1 L, Lymphocytes 7 L, Monocytes 6, Absolute Monocytes 0.9 H, Absolute Eosinophils 0, Absolute Basophils 0.1, Platelet Estimate INCREASED, Normocytic RBCs VERIFIED, Normochromic RBCs VERIFIED Microbiology 09/24 0650 NASOPHARYN: Influenza Virus A & B Rapid Smear - COMP 09/23 2314 LOWER RESP: Respiratory Culture - RES YEAST 09/23 2314 LOWER RESP: Gram Stain - RES Vital Signs Date Time Temp Pulse Resp B/P B/P Pulse O2 O2 Flow FiO2 Mean Ox Delivery Rate 09/25 0856 94 Nasal 1.5L Cannula 09/25 0800 93 Nasal 2.0L Cannula 09/25 0656 97.7 82 18 114/78 93 Nasal Cannula 09/25 0000 94 Nasal 2.0L Cannula 09/24 2338 98.9 88 20 94/60 97 Nasal Cannula 09/24 1619 91 Nasal 1.0L Cannula 09/24 1600 Nasal 2.0L Cannula 09/24 1415 99.3 112 20 120/70 93 Nasal Cannula Intake & Output 09/25 1600 09/25 0800 09/25 0000 Intake Total 500 600 Output Total Balance 500 600 Intake, Oral 500 600 Patient 183 lb Weight Weight Bed scale Measurement Method
--- NOTE | 2017-09-25 11:43 | PN- Pulmonary ---
Subjective HPI/Critical Care Issues: pt seen and examined doing better, however still wheezing and not back to respiratory baseline Objective Current Medications: Current Medications Sig/Rosalina Start time Last Medication Dose Route Stop Time Status Admin Albuterol Sulfate 3 ML .[AD] PRN 09/24 1500 CAN INH Albuterol Sulfate 3 ML EVERY 4 HRS/AWAKE 09/24 0800 AC 09/25 INH 0828 Albuterol Sulfate 3 ML Q6 PRN 09/23 2115 AC INH Azithromycin 500 MG DAILY 09/23 2200 AC 09/25 Dextrose/Water 250 ML IV 0901 Budesonide/ 2 PUF BID 09/24 1124 AC 09/25 Formoterol Fumarate INH 0750 Enoxaparin Sodium 40 MG DAILY 09/24 1000 AC 09/25 SC 0901 Guaifenesin/Codeine 10 ML Q4P PRN 09/23 2245 AC 09/25 Phosphate PO 0901 Insulin Aspart 0 TIDAC 09/23 2115 AC 09/24 SC 1800 Ipratropium [place] 2.5 ML EVERY 4 HRS/AWAKE 09/24 0800 AC 09/25 INH 0829 Methylprednisolone 40 MG Q12 09/24 2200 AC 09/25 IV 0901 Methylprednisolone 40 MG Q8 09/23 2200 DC 09/24 IV 1431 Nicotine 21 MG ONE TIME ONE 09/24 2215 DC 09/25 TOP 09/24 2216 0102 Olanzapine 10 MG QPM 09/23 220 AC 09/24 PO 2217 Patient Medication 1 ED ONE ONE 09/24 1230 DC 09/24 Teaching ED 09/24 1231 1230 Ramelteon 8 MG ONCE ONE 09/24 2045 DC 09/24 PO 09/24 2046 2217 Vital Signs & I&O Last 24 Hrs of Vitals and I&O: Vital Signs Date Time Temp Pulse Resp B/P B/P Pulse O2 O2 Flow FiO2 Mean Ox Delivery Rate 09/25 0856 94 Nasal 1.5L Cannula 09/25 0800 93 Nasal 2.0L Cannula 09/25 0656 97.7 82 18 114/78 93 Nasal Cannula 09/25 0000 94 Nasal 2.0L Cannula 09/24 2338 98.9 88 20 94/60 97 Nasal Cannula 09/24 1619 91 Nasal 1.0L Cannula 09/24 1600 Nasal 2.0L Cannula 09/24 1415 99.3 112 20 120/70 93 Nasal Cannula Intake & Output 09/25 1600 09/25 0800 09/25 0000 Intake Total 500 600 Output Total Balance 500 600 Intake, Oral 500 600 Patient 183 lb Weight Weight Bed scale Measurement Method Exam Other Physical Findings: Generally - Awake Head and neck - normocephalic, atraumatic, EOMI grossly intact Cardiovascular - S1, S2 Lungs -rare rhonchi Abdomen - Bowel sounds positive, soft, non-tender Extremities - without edema Results Last 24 Hrs of Lab Results: Laboratory Tests 09/25/17 0623: CBC w Diff NO MAN DIFF REQ, RBC 4.97, MCV 85.1, MCH 27.7, MCHC 32.6 L, RDW 15.6 H, MPV 8.8, Gran % 92.3 H, Lymphocytes % 5.0 L, Monocytes % 2.5, Eosinophils % 0, Basophils % 0.2, Absolute Granulocytes 15.2 H, Absolute Lymphocytes 0.8 L , Absolute Monocytes 0.4, Absolute Eosinophils 0, Absolute Basophils 0 Impression/Plan Impression/Plan Impression/Plan: Impression 52 year old woman Acute Exacerbation of Chronic obstructive lung disease -reduce solumedrol to 40mg iv q12h -RESUME home symbicort 160/4.5 2 puffs BID with rinsing of the mouth -TRC/Nebs and PROAIR for rescue -WPW history -was rx Daliresp however has not taken it and will not recommend further use at this time -pulse oximeter recommended -assess o2 needs prior to dc -she understands the risks of not pursuing o2 therapy, this will be addressed on an ongoing basis. -smoking cessation/counseled -MS RADHAT discussed with patient and discussed that her children can be screened -LDCT referral (as an outpatient) - already referred Tobacco dependence syndrome - I have discussed in detail and counseled the patient regarding the benefit of smoking cessation. Discussed options such as nicotine replacement therapy. DVT prophylaxis at all times
--- NOTE | 2017-09-25 12:15 | PN- Housestaff ---
Subjective Follow-up For: Asthma/COPD exacerbation History of WPW syndrome S/P ablation, still in sinus tachycardia Tele-Events Since Last Visit: NSR 73-91 Subjective: No acute events overnight. States SOB improved but not back to baseline. Review of Systems Constitutional: Reports: see HPI. Objective Last 24 Hrs of Vital Signs/I&O Vital Signs Date Time Temp Pulse Resp B/P B/P Pulse O2 O2 Flow FiO2 Mean Ox Delivery Rate 09/25 2238 97.5 96 20 130/69 99 Nasal 1.0L Cannula 09/25 2200 99 Nasal 1.0L Cannula 09/25 1627 92 Nasal 1.5L Cannula 09/25 1600 90 Nasal 2.0L Cannula 09/25 1501 97.8 112 20 100/60 92 Nasal 1.0L Cannula 09/25 0856 94 Nasal 1.5L Cannula 09/25 0800 93 Nasal 2.0L Cannula 09/25 0656 97.7 82 18 114/78 93 Nasal Cannula Intake & Output 09/26 0800 09/26 0000 09/25 1600 Intake Total 480 1000 Output Total Balance 480 1000 Intake, IV 250 Intake, Oral 480 750 Patient 190 lb Weight Weight Bed scale Measurement Method Physical Exam General Appearance: Alert, Oriented X3, Cooperative, No Acute Distress Cardiovascular: tachy Lungs: diffuse decreased wheezing and breath sounds Abdomen: Normal Bowel Sounds, Soft, No Tenderness Vascular: 2+ radial pulses Current Medications: Current Medications Sig/Rosalina Start time Last Medication Dose Route Stop Time Status Admin Albuterol Sulfate 2 PUF Q4 PRN 09/25 1545 AC INH Albuterol Sulfate 3 ML EVERY 4 HRS/AWAKE 09/24 0800 AC 09/25 INH 2113 Albuterol Sulfate 3 ML Q6 PRN 09/23 2115 AC INH Alprazolam 0.5 MG TID PRN 09/25 1145 AC 09/25 PO 10/02 1144 2145 Azithromycin 500 MG DAILY 09/23 2200 AC 09/25 Dextrose/Water 250 ML IV 0901 Budesonide/ 2 PUF BID 09/24 1124 AC 09/25 Formoterol Fumarate INH 2145 Calcium Carbonate 1,000 MG ONE TIME ONE 09/25 2200 DC 09/25 PO 09/25 220 2154 Enoxaparin Sodium 40 MG DAILY 09/24 1000 AC 09/25 SC 0901 Guaifenesin/Codeine 10 ML Q4P PRN 09/23 2244 AC 09/26 Phosphate PO 0052 Insulin Aspart 0 TIDAC 09/23 2114 AC 09/25 SC 1733 Ipratropium [place] 2.5 ML EVERY 4 HRS/AWAKE 09/24 0800 AC 09/25 INH 211 Methylprednisolone 40 MG Q12 09/24 2199 AC 09/25 IV 2026 Nicotine 21 MG ONE TIME ONE 09/25 1845 DC 09/25 TOP 09/25 184 214 Olanzapine 10 MG QPM 09/23 2199 AC 09/25 PO 2144 Ramelteon 8 MG 09/25 DC 09/25 PO 09/25 Last 24 Hrs of Lab/Kameron Results Last 24 Hrs of Labs/Mics: Laboratory Tests 09/25/17622: CBC w Diff NO MAN DIFF REQ, RBC 4.97, MCV 85.1, MCH 27.7, MCHC 32.6 L, RDW 15.6 H, MPV 8.8, Gran % 92.3 H, Lymphocytes % 5.0 L, Monocytes % 2.5, Eosinophils % 0, Basophils % 0.2, Absolute Granulocytes 15.2 H, Absolute Lymphocytes 0.8 L , Absolute Monocytes 0.4, Absolute Eosinophils 0, Absolute Basophils 0 Assessment/Plan Assessment: 52 year old female with past medical history of bipolar, COPD, alpha 1 antitrypsin, smoking 40 pack years, and Blevins parkinson white s/p ablation presents with two days of productive cough and progressive dyspnea. COPD exacerbation: -Patient wanted to be discharged but still wheezing. -prn xanax for anxiety - Check peak flow - Titrate supplemental oxygen to an SpO2 > 92% - TRC evaluation - reduced to Solumedrol 80mg IV 12h - Continue nebulized albuterol and ipatropium - Chest x-ray negative for infiltrates - Consider CT, pt was schedule for low dose lung cancer screening CT - Azithromycin for bronchitis as cause for COPD exacerbation - Afebrile, leukocytosis with steroids taken this morning and recent dental abscess Hyperglycemia: - Likely secondary to steroids - Accuchecks TIDAC and novolog sliding scale coverage - hemoglobin a1c 6.0, elevated from 5.6 from 02/2017 Smoking: Nicotine patch 21mg Bipolar: Continue zyprexa WPW: s/p ablation Currently in sinus tachycardia reverted to NSR overnight. Avoid negative chronotropic medications Heart healthy diet DVT ppx-lovenox 40mg subcutaneous daily Full code Problem List: 1. COPD exacerbation Pain Ratin Pain Location: none Pain Goal: Pain 4 or less Pain Plan: pathway Tomorrow's Labs & Rationales: annalee bep
[2017-09-25 15:01] VITALS: BP 100/60
[2017-09-25 22:39] VITALS: BP 130/69
[2017-09-26 07:19] VITALS: BP 114/82
[2017-09-26 08:21] LABS: ABSOLUTE BASOPHIL COUNT 0 /CUMM (0.0-0.2); ABSOLUTE EOSINOPHIL COUNT 0 /CUMM (0.0-0.7); ABSOLUTE LYMPH COUNT 0.9 /CUMM (1.2-3.4); ABSOLUTE MONOCYTE COUNT 0.3 /CUMM (0.10-0.60); BASOPHIL % 0.3 % (0.0-2.0); EOSINOPHIL % 0.1 % (0-5); GRANULOCYTE % 90.9 % (42.2-75.2); HEMATOCRIT 42.9 % (37-47); MEAN CORPUSCULAR HGB 27.7 PG (27.0-31.0); MEAN CORPUSCULAR HGB CONC 32.6 G/DL (33.0-37.0); MEAN CORPUSCULAR VOLUME 85.1 FL (81.0-99.0); PLATELET COUNT 279 /CUMM (130-400); RBC DISTRIBUTION WIDTH 15.3 % (11.5-14.5); RED BLOOD CELL CT 5.04 /CUMM (4.20-5.40); WHITE BLOOD CELL COUNT 13.2 /CUMM (4.8-10.8)
--- NOTE | 2017-09-26 09:35 | PN- Housestaff ---
Emma Morgan 09/26/17 0934: Subjective Follow-up For: Asthma/COPD exacerbation History of WPW syndrome S/P ablation, still in sinus tachycardia Tele-Events Since Last Visit: NSR 70-80s Subjective: No overnight event. Patient was sitting on bed comfortably however endorsed wheezing still. On 1LNC. No other specific complaint other than her breathign status. Appeared spirited from before. Review of Systems Constitutional: Reports: see HPI. Objective Last 24 Hrs of Vital Signs/I&O Vital Signs Date Time Temp Pulse Resp B/P B/P Pulse O2 O2 Flow FiO2 Mean Ox Delivery Rate 09/26 0719 97.8 75 12 114/82 92 Nasal 1.0L Cannula 09/26 0600 92 Nasal 1.0L Cannula 09/26 0145 93 Nasal 1.0L Cannula 09/26 0000 99 Nasal 1.0L Cannula 09/25 2239 97.5 96 20 130/69 99 Nasal 1.0L Cannula 09/25 2200 99 Nasal 1.0L Cannula 09/25 1627 92 Nasal 1.5L Cannula 09/25 1600 90 Nasal 2.0L Cannula 09/25 1501 97.8 112 20 100/60 92 Nasal 1.0L Cannula Intake & Output 09/26 1600 09/26 0800 09/26 0000 Intake Total 100 480 Output Total Balance 100 480 Intake, Oral 100 480 Patient 86.012 kg Weight Weight Bed scale Measurement Method Physical Exam General Appearance: Alert, Oriented X3, Cooperative, No Acute Distress Cardiovascular: Regular Rate Lungs: Normal Air Movement, Expiratory wheezing on mid lungs BL Abdomen: Soft, No Tenderness Neurological: Normal Speech Extremities: No Edema, Normal Pulses Current Medications: Current Medications Sig/Rosalina Start time Last Medication Dose Route Stop Time Status Admin Albuterol Sulfate 2 PUF Q4 PRN 09/25 1545 AC INH Albuterol Sulfate 3 ML EVERY 4 HRS/AWAKE 09/24 0800 AC 09/26 INH 0130 Albuterol Sulfate 3 ML Q6 PRN 09/23 2115 AC INH Alprazolam 0.5 MG TID PRN 09/25 1145 AC 09/26 PO 10/02 1144 0852 Azithromycin 500 MG DAILY 09/23 2200 AC 09/26 Dextrose/Water 250 ML IV 0851 Budesonide/ 2 PUF BID 09/24 1124 AC 09/26 Formoterol Fumarate INH 0651 Calcium Carbonate 1,000 MG ONE TIME ONE 09/25 2199 DC 09/25 PO 09/25 220 215 Enoxaparin Sodium 40 MG DAILY 09/24 1000 AC 09/26 SC 0853 Guaifenesin/Codeine 10 ML Q4P PRN 09/23 224 AC 09/26 Phosphate PO 0654 Insulin Aspart 0 TIDAC 09/23 2115 AC 09/26 SC 0800 Ipratropium [place] 2.5 ML EVERY 4 HRS/AWAKE 09/24 0800 AC 09/26 INH 0129 Methylprednisolone 40 MG Q12 09/24 2199 AC 09/26 IV 0852 Nicotine 21 MG ONE TIME ONE 09/25 1845 DC 09/25 TOP 09/25 184 214 Olanzapine 10 MG QPM 09/23 2199 AC 09/25 PO 214 Ramelteon 8 MG 09/25 DC 09/25 PO 09/25 Last 24 Hrs of Lab/Kameron Results Last 24 Hrs of Labs/Mics: Laboratory Tests 09/26/17 0705: Anion Gap 12, Estimated GFR > 60, BUN/Creatinine Ratio 31.3 H, CBC w Diff MAN DIFF ORDERED, RBC 5.04, MCV 85.1, MCH 27.7, MCHC 32.6 L, RDW 15.3 H, MPV 9.0, Gran % 90.9 H, Lymphocytes % 6.6 L, Monocytes % 2.1, Eosinophils % 0.1, Basophils % 0.3, Absolute Granulocytes 12.0 H, Segmented Neutrophils Pending, Absolute Lymphocytes 0.9 L, Absolute Monocytes 0.3, Absolute Eosinophils 0, Absolute Basophils 0 Assessment/Plan Assessment: 52 year old female with past medical history of bipolar, COPD, alpha 1 antitrypsin, smoking 40 pack years, and Blevins parkinson white s/p ablation presents with two days of productive cough and progressive dyspnea. COPD exacerbation: -Patient wanted to be discharged but still wheezing. -prn xanax for anxiety - Check peak flow - Titrate supplemental oxygen to an SpO2 > 92%, currently 1LNC - TR evaluation - reduced to Oral prednisone 60mg qd - Continue nebulized albuterol and ipatropium - Chest x-ray negative for infiltrates - Consider CT, pt was schedule for low dose lung cancer screening CT - Azithromycin for bronchitis as cause for COPD exacerbation, currently day 4 of 250. will DC tomorrow. - Afebrile, leukocytosis with steroids taken this morning and recent dental abscess Hyperglycemia: - Likely secondary to steroids - Accuchecks TIDAC and novolog sliding scale coverage - hemoglobin a1c 6.0, elevated from 5.6 from 02/2017. May need outpatient f/u/ Smoking: Nicotine patch 21mg Bipolar: Continue zyprexa WPW: s/p ablation Currently in sinus tachycardia reverted to NSR overnight. Avoid negative chronotropic medications Heart healthy diet DVT ppx-lovenox 40mg subcutaneous daily Full code Problem List: 1. S/P ablation of accessory bypass tract 2. COPD exacerbation Pain Ratin Pain Location: NA Pain Goal: Remain pain free Pain Plan: see AP Tomorrow's Labs & Rationales: [facility] 1046: Attending MD Review Statement Attending Statement Attending MD Statement: examined this patient, discuss w/resident/PA/MOLDING ENGINEER, agreed w/resident/PA/MOLDING ENGINEER, reviewed EMR data (avail), discussed with nursing Attending Assessment/Plan: Pt was seen and examined. Reports improvement in her SOB. VSS. on P/E scattered wheezing. Switch to PO steriods and antibiotics Likely d/c in next 24 hrs rest of the plan as per resident's note
[2017-09-26] MEDS ORDERED: ALPRAZOLAM0.5 M4 PO (11:47)
--- NOTE | 2017-09-26 12:08 | PN- Pulmonary ---
Subjective HPI/Critical Care Issues: pt seen and examined overall feeling better Objective Current Medications: Current Medications Sig/Rosalina Start time Last Medication Dose Route Stop Time Status Admin Albuterol Sulfate 2 PUF Q4 PRN 09/25 1545 AC INH Albuterol Sulfate 3 ML EVERY 4 HRS/AWAKE 09/24 0800 AC 09/26 INH 1203 Albuterol Sulfate 3 ML Q6 PRN 09/23 2115 AC INH Alprazolam 0.5 MG TID PRN 09/25 1145 AC 09/26 PO 10/02 1144 0852 Azithromycin 500 MG DAILY 09/23 2200 DC 09/26 Dextrose/Water 250 ML IV 0851 Budesonide/ 2 PUF BID 09/24 1124 AC 09/26 Formoterol Fumarate INH 0651 Calcium Carbonate 1,000 MG ONE TIME ONE 09/25 2199 DC 09/25 PO 09/25 220 2154 Enoxaparin Sodium 40 MG DAILY 09/24 1000 AC 09/26 SC 0853 Guaifenesin/Codeine 10 ML Q4P PRN 09/23 2245 AC 09/26 Phosphate PO 0654 Insulin Aspart 0 TIDAC 09/23 2115 AC 09/26 SC 0800 Ipratropium [place] 2.5 ML EVERY 4 HRS/AWAKE 09/24 0800 AC 09/26 INH 1202 Methylprednisolone 40 MG Q12 09/24 2199 DC 09/26 IV 0852 Nicotine 21 MG ONE TIME ONE 09/25 1845 DC 09/25 TOP 09/25 1846 2144 Olanzapine 10 MG QPM 09/23 2200 AC 09/25 PO 2145 Prednisone 60 MG DAILY 09/27 1000 AC PO Ramelteon 8 MG 2200 09/25 220 DC 09/25 PO 09/25 220 2145 Vital Signs & I&O Last 24 Hrs of Vitals and I&O: Vital Signs Date Time Temp Pulse Resp B/P B/P Pulse O2 O2 Flow FiO2 Mean Ox Delivery Rate 09/26 1204 92 Nasal 1.0L Cannula 09/26 0910 93 Nasal 1.0L Cannula 09/26 0719 97.8 75 12 114/82 92 Nasal 1.0L Cannula 09/26 0600 92 Nasal 1.0L Cannula 09/26 0145 93 Nasal 1.0L Cannula 09/26 0000 99 Nasal 1.0L Cannula 09/25 2238 97.5 96 20 130/69 99 Nasal 1.0L Cannula 09/25 2200 99 Nasal 1.0L Cannula 09/25 1627 92 Nasal 1.5L Cannula 09/25 1600 90 Nasal 2.0L Cannula 09/25 1501 97.8 112 20 100/60 92 Nasal 1.0L Cannula Intake & Output 09/26 1600 09/26 0800 09/26 0000 Intake Total 100 480 Output Total Balance 100 480 Intake, Oral 100 480 Patient 190 lb Weight Weight Bed scale Measurement Method Exam Other Physical Findings: Generally - Awake Head and neck - normocephalic, atraumatic, EOMI grossly intact Cardiovascular - S1, S2 Lungs -rare rhonchi Abdomen - Bowel sounds positive, soft, non-tender Extremities - without edema Results Last 24 Hrs of Lab Results: Laboratory Tests 09/26/17 07: Anion Gap 12, Estimated GFR > 60, BUN/Creatinine Ratio 31.3 H, CBC w Diff MAN DIFF ORDERED, RBC 5.04, MCV 85.1, MCH 27.7, MCHC 32.6 L, RDW 15.3 H, MPV 9.0, Gran % 90.9 H, Lymphocytes % 6.6 L, Monocytes % 2.1, Eosinophils % 0.1, Basophils % 0.3, Absolute Granulocytes 12.0 H, Absolute Lymphocytes 0.9 L, Absolute Monocytes 0.3, Absolute Eosinophils 0, Absolute Basophils 0, Platelet Estimate VERIFIED BY SMEAR, Anisocytosis 1+ Impression/Plan Impression/Plan Impression/Plan: Impression 52 year old woman Acute Exacerbation of Chronic obstructive lung disease -taper to po prednisone 60mg with a slow taper every 3 days reduce by 10mg -plan for DC within 24 hrs per pt wishes -assess home o2 needs -symbicort 160/4.5 2 puffs BID with rinsing of the mouth -TRC/Nebs and PROAIR for rescue -WPW history -was rx Daliresp however has not taken it and will not recommend further use at this time -pulse oximeter recommended -assess o2 needs prior to dc -she understands the risks of not pursuing o2 therapy, this will be addressed on an ongoing basis. -smoking cessation/counseled -MS HARVEY discussed with patient and discussed that her children can be screened -LDCT referral (as an outpatient) - already referred Tobacco dependence syndrome - I have discussed in detail and counseled the patient regarding the benefit of smoking cessation. Discussed options such as nicotine replacement therapy. DVT prophylaxis at all times
[2017-09-26 14:17] VITALS: BP 112/70
[2017-09-26 23:05] VITALS: BP 118/62
[2017-09-27 06:39] VITALS: BP 108/72
--- NOTE | 2017-09-27 07:17 | PN- Housestaff ---
MorganEmma 09/27/17 0717: Subjective Follow-up For: Asthma/COPD exacerbation History of WPW syndrome S/P ablation, still in sinus tachycardia Tele-Events Since Last Visit: NSR Subjective: No overnight event. Patient remained on NC 1L. Had no specific complaint. Review of Systems Constitutional: Reports: see HPI. Objective Last 24 Hrs of Vital Signs/I&O Vital Signs Date Time Temp Pulse Resp B/P B/P Pulse O2 O2 Flow FiO2 Mean Ox Delivery Rate 09/27 0639 97.4 74 18 108/72 95 Nasal Cannula 09/27 0220 93 Nasal 1.0L Cannula 09/26 2305 97.9 106 16 118/62 95 Nasal 1.0L Cannula 09/26 2200 95 Nasal 1.0L Cannula 09/26 2033 Nasal 1.0L Cannula 09/26 1614 93 Nasal 1.0L Cannula 09/26 1417 98.0 99 20 112/70 92 Nasal 1.0L Cannula 09/26 1219 92 Nasal 1.0L Cannula 09/26 1204 92 Nasal 1.0L Cannula Intake & Output 09/27 1600 09/27 0800 09/27 0000 Intake Total Output Total Balance Patient 87.26 kg Weight Physical Exam General Appearance: Alert, Oriented X3, Cooperative, No Acute Distress Cardiovascular: Regular Rate Lungs: Normal Air Movement, mild wheezing at L mid lung. Abdomen: Soft, No Tenderness Neurological: Normal Speech Extremities: No Edema, Normal Pulses Current Medications: Current Medications Sig/Rosalina Start time Last Medication Dose Route Stop Time Status Admin Albuterol Sulfate 2 PUF Q4 PRN 09/25 1545 AC INH Albuterol Sulfate 3 ML EVERY 4 HRS/AWAKE 09/24 0800 AC 09/27 INH 0203 Albuterol Sulfate 3 ML Q6 PRN 09/23 2115 AC INH Alprazolam 0.5 MG TID PRN 09/25 1145 AC 09/27 PO 10/02 1144 0745 Azithromycin 250 MG DAILY 09/27 1000 AC 09/27 PO 0747 Azithromycin 500 MG DAILY 09/23 2200 DC 09/26 Dextrose/Water 250 ML IV 0851 Budesonide/ 2 PUF BID 09/24 1124 AC 09/27 Formoterol Fumarate INH 0747 Enoxaparin Sodium 40 MG DAILY 09/24 1000 AC 09/27 SC 0747 Guaifenesin/Codeine 10 ML Q4P PRN 09/23 2245 AC 09/27 Phosphate PO 0746 Insulin Aspart 0 TIDAC 09/23 2115 AC 09/26 SC 1555 Ipratropium [place] 2.5 ML EVERY 4 HRS/AWAKE 09/24 0800 AC 09/27 INH 0205 Methylprednisolone 40 MG Q12 09/24 2200 DC 09/26 IV 0852 Olanzapine 10 MG QPM 09/23 2200 AC 09/26 PO 2144 Prednisone 60 MG DAILY 09/27 1000 AC 09/27 PO 0747 Assessment/Plan Assessment: Ms. Woo is a 52 year old female with past medical history of bipolar, COPD, alpha 1 antitrypsin, smoking 40 pack years, and Blevins parkinson white s/p ablation presents with two days of productive cough and progressive dyspnea. COPD exacerbation: -prn xanax for anxiety - Check peak flow - Titrate supplemental oxygen to an SpO2 > 92%, currently 1LNC - TRC evaluation - reduced to Oral prednisone 60mg qd - Continue nebulized albuterol and ipatropium - Chest x-ray negative for infiltrates - Consider CT, pt was schedule for low dose lung cancer screening CT - Azithromycin for bronchitis as cause for COPD exacerbation, will complete the course today. - Afebrile, leukocytosis with steroids taken this morning and recent dental abscess. - Dr. Leavitt and I had a discussion regarding use of Home oxygen with patient's current clinical condition. Patient's desatting <88% during ambulation in this hospital stay would definitely qualify her for home oxygen use (patient acknowledged this oxygen requirement from last hospital stay as well). However, patient would not want home oxygen for now and would think over it, especially if unfortunately in future she is re-hospitalized with similar symptoms for the third time. At present, patient would go home without home oxygen arrangement and will follow up with Pulm in outpatient. Hyperglycemia: - Likely secondary to steroids - Accuchecks TIDAC and novolog sliding scale coverage - hemoglobin a1c 6.0, elevated from 5.6 from 02/2017. May need outpatient f/u/ Smoking: Nicotine patch 21mg Bipolar: Continue zyprexa WPW: s/p ablation Currently in sinus tachycardia reverted to NSR overnight. Avoid negative chronotropic medications Heart healthy diet DVT ppx-lovenox 40mg subcutaneous daily Full code Problem List: 1. S/P ablation of accessory bypass tract 2. COPD exacerbation 3. COPD exacerbation Pain Ratin Pain Location: NA Pain Goal: Remain pain free Pain Plan: see AP Tomorrow's Labs & Rationales: NATALIE Tila Bella 09/27/17 1145: Attending MD Review Statement Attending Statement Attending MD Statement: examined this patient, discuss w/resident/PA/MANAGING COGNITIVE ENGINEER, agreed w/resident/PA/MANAGING COGNITIVE ENGINEER, discussed with family, reviewed EMR data (avail), discussed with nursing, discussed with case mgmt, reviewed images, amended to note Attending Assessment/Plan: Patient seen and examined. Labs and imaging noted. Her difficulty breathing also has decreased to some extent. She remains on oxygen now 2L. She is afebrile and other vital signs are stable. Chest x-ray upon admission was negative for pneumonia. Assessment plan 1. COPD exacerbation 2. Tachycardia mostly sinus 3. History WPW syndrome status post ablation Plan Continue Zithromax and PO steroid taper, TRC nebs Taper oxygen Out of bed and ambulate Antcipate dc soon with outpatient referral to [facility] for PFTs.
--- NOTE | 2017-09-27 10:54 | PN- Pulmonary ---
Subjective HPI/Critical Care Issues: pt seen and examined comfortable anticipatnig dc Objective Current Medications: Current Medications Sig/Rosalina Start time Last Medication Dose Route Stop Time Status Admin Albuterol Sulfate 2 PUF Q4 PRN 09/25 1545 AC INH Albuterol Sulfate 3 ML EVERY 4 HRS/AWAKE 09/24 0800 AC 09/27 INH 0835 Albuterol Sulfate 3 ML Q6 PRN 09/23 2115 AC INH Alprazolam 0.5 MG TID PRN 09/25 1145 AC 09/27 PO 10/02 1144 0745 Azithromycin 250 MG DAILY 09/27 1000 AC 09/27 PO 0747 Azithromycin 500 MG DAILY 09/23 2200 DC 09/26 Dextrose/Water 250 ML IV 0851 Budesonide/ 2 PUF BID 09/24 1124 AC 09/27 Formoterol Fumarate INH 0747 Enoxaparin Sodium 40 MG DAILY 09/24 1000 AC 09/27 SC 0747 Guaifenesin/Codeine 10 ML Q4P PRN 09/23 2245 AC 09/27 Phosphate PO 0746 Insulin Aspart 0 TIDAC 09/23 2115 AC 09/26 SC 1555 Ipratropium [place] 2.5 ML EVERY 4 HRS/AWAKE 09/24 0800 AC 09/27 INH 0836 Olanzapine 10 MG QPM 09/23 2200 AC 09/26 PO 2144 Prednisone 60 MG DAILY 09/27 1000 AC 09/27 PO 0747 Vital Signs & I&O Last 24 Hrs of Vitals and I&O: Vital Signs Date Time Temp Pulse Resp B/P B/P Pulse O2 O2 Flow FiO2 Mean Ox Delivery Rate 09/27 0841 93 Nasal 1.0L Cannula 09/27 08 Nasal 1.0L Cannula 09/27 0639 97.4 74 18 108/72 95 Nasal Cannula 09/27 06 95 Nasal 1.0L Cannula 09/27 0220 93 Nasal 1.0L Cannula 09/26 2305 97.9 106 16 118/62 95 Nasal 1.0L Cannula 09/26 2200 95 Nasal 1.0L Cannula 09/26 203 Nasal 1.0L Cannula 09/26 1614 93 Nasal 1.0L Cannula 09/26 1417 98.0 99 20 112/70 92 Nasal 1.0L Cannula 09/26 1219 92 Nasal 1.0L Cannula 09/26 1204 92 Nasal 1.0L Cannula Intake & Output 09/27 1600 04/ 0800 04/ 0000 Intake Total Output Total Balance Patient 192 lb Weight Exam Other Physical Findings: Generally - Awake Head and neck - normocephalic, atraumatic, EOMI grossly intact Cardiovascular - S1, S2 Lungs -rare rhonchi Abdomen - Bowel sounds positive, soft, non-tender Extremities - without edema Impression/Plan Impression/Plan Impression/Plan: Impression 52 year old woman Acute Exacerbation of Chronic obstructive lung disease -Declines o2 at this time, knows risks of cardiovascular or neurological complications, will have an open mind about it in the future -wants to have short term anxiolysis and cough medications upon dc -taper to po prednisone 60mg with a slow taper every 3 days reduce by 10mg -symbicort 160/4.5 2 puffs BID with rinsing of the mouth -TRC/Nebs and PROAIR for rescue -WPW history -was rx Daliresp however has not taken it and will not recommend further use at this time -pulse oximeter recommended -assess o2 needs prior to dc -she understands the risks of not pursuing o2 therapy, this will be addressed on an ongoing basis. -smoking cessation/counseled -MS HARVEY discussed with patient and discussed that her children can be screened -LDCT referral (as an outpatient) - already referred Tobacco dependence syndrome - I have discussed in detail and counseled the patient regarding the benefit of smoking cessation. Discussed options such as nicotine replacement therapy. DVT prophylaxis at all times
[2017-09-27] MEDS ORDERED: PREDNISONE10 M2 PO ×3 (10:57→13:22)
[2017-09-27] MEDS ORDERED: ALPRAZOLAM0.5 M4 PO ×2 (11:44→13:22)
[2017-09-27] MEDS ORDERED: GUAIFENESIN AC473 M2 PO ×2 (11:57→13:22)
== END 2017-09-27 16:04 | disposition home health service (06) | DRG 140 ==
LOC: ERH 16:30 → ERHI 19:47 → 1NO 19:47 → ENRESERV 20:30 → CANRESERV 20:30 → EDBEDREQ 20:41 → ENRESERV 20:53 → 1NO 21:21 → ENTRNSPT 21:21 → EDTRNSPTSTS 21:25 → 1NO 21:39 → CMPTRNSPT 21:45 → 1NO 09-24 07:42 → ENPENDDIS 09-27 11:19 → ENTRNSPT 09-27 15:46 → CMPTRNSPT 09-27 16:01 → 1NO 09-27 16:04
PROVIDERS: Emergency Medicine; Student in an Organized Health Care Education/Training Program
DX: J44.1 Chronic obstructive pulmonary disease with (acute) exacerbation (principal); F17.210 Nicotine dependence, cigarettes, uncomplicated; F31.9 Bipolar disorder, unspecified; R73.9 Hyperglycemia, unspecified; J96.01 Acute respiratory failure with hypoxia; T38.0X5A Adverse effect of glucocorticoids and synthetic analogues, initial encounter; E88.01 Alpha-1-antitrypsin deficiency; I45.6 Pre-excitation syndrome; Z88.1 Allergy status to other antibiotic agents; Z88.0 Allergy status to penicillin; Z79.51 Long term (current) use of inhaled steroids; R00.0 Tachycardia, unspecified
CPT/HCPCS: 1NP; 36592; 71045; 82436; 87070; 87071; 87804; 87804-59; 93005; 93010; 96374; 96375; 99291; J0456; J1650; J2920; J2930; J3490; J7060

== ENCOUNTER 2018-01-16 10:44 | Emergency (ER) | payer OTHER ==
[~2018-01-16] VITALS: Ht 172.7 cm; Wt 72.6 kg
[~2018-01-16 10:44] MED LIST changes: +ALBUTEROL2.5 MG/3 M INH/SOL; +ALPRAZOLAM0.5 M4 PO; +DALIRESP500 MC1; +GUAIFENESIN AC473 M2 PO
[2018-01-16 10:48] VITALS: BP 114/74
[2018-01-16] MEDS ORDERED: ZYPREXA10 M1 PO (10:57)
[2018-01-16] MEDS ORDERED: XANAX1 M1 PO (10:57)
--- NOTE | 2018-01-16 10:59 | ED GENERAL ADULT ---
History of Present Illness General Chief Complaint: General Adult Stated Complaint: MED REFILL Source: patient, old records Exam Limitations: no limitations Vital Signs & Intake/Output Vital Signs & Intake/Output Vital Signs Date Time Temp Pulse Resp B/P B/P Pulse O2 O2 Flow FiO2 Mean Ox Delivery Rate 01/16 1048 98.7 96 22 114/74 92 Allergies Coded Allergies: clindamycin (Severe, FULL BODY RASH 09/13/17) Penicillins (Intermediate, RASH 09/13/17) Reconcile Medications Albuterol Sulfate 2.5 MG/3 ML (0.083 %) VIAL.NEB 1 Vial INH/WESLY AD PRN RESP. (Reported) Albuterol Sulfate (Ventolin Hfa) 90 MCG HFA.AER.AD 2 PUF INH Q4-6 PRN PRN WHEEZING/SHORTNESS OF BREATH Alprazolam (Xanax) 1 MG TABLET 0.5 TAB PO BID PRN ANXIETY Alprazolam 0.5 MG TABLET 0.5 MG PO TID PRN ANXIETY Budesonide/Formoterol Fumarate (Symbicort 160-4.5 Mcg Inhaler) 160 MCG-4.5 MCG/ ACTUATION HFA.AER.AD 2 PUF INH BID copd Codeine Phosphate/Guaifenesi (Guaifenesin AC Cough Syrup) 10 MG-100 MG/5 ML LIQUID 10 ML PO Q4P PRN COUGH . Olanzapine (Zyprexa) 10 MG TABLET 1 TAB PO QPM BIPOLAR Olanzapine (Zyprexa) 10 MG TABLET 1 TAB PO QPM mental health Prednisone 10 MG TABLET 1 TAB PO DAILY COPD/Asthma Taper Triage Note: PT HERE FOR MED REFILL OF HER ZYPREXA 10MG PT STATES SHE HAS BEEN HAVING ANXIETY VERY BAD. Triage Nurses Notes Reviewed? yes HPI: Patient presents for a medication refill. Patient is in between doctors. Patient ran out of her Zyprexa last night and her Xanax. She will take Xanax as needed basis. Patient has a call out to a new physician in hopes to be seen this week. Patient denies any suicidal or homicidal ideations. Past History Travel History Traveled to [place] past 21 day No Medical History Any Pertinent Medical History? 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 No Review of Systems Review of Systems Constitutional: Reports: no symptoms. Respiratory: Reports: no symptoms. Cardiovascular: Reports: no symptoms. Musculoskeletal: Reports: no symptoms. Neurological/Psychological: Reports: no symptoms. Immunologic/Allergic: Reports: no symptoms. Physical Exam Physical Exam General Appearance: well developed/nourished, alert, awake Head: atraumatic Eyes: Bilateral: PERRL, EOMI. Neck: normal inspection, supple Respiratory: normal breath sounds, chest non-tender, no respiratory distress, lungs clear Cardiovascular: regular rate/rhythm, normal peripheral pulses Gastrointestinal: normal bowel sounds, soft, non-tender Neurologic/Psych: no motor/sensory deficits, awake, alert, oriented x 3, normal gait, normal mood/affect Core Measures ACS in differential dx? No CVA/TIA Diagnosis: No Sepsis Present: No Sepsis Focused Exam Completed? No Progress Differential Diagnoses I considered the following diagnoses in my evaluation of the patient: [ Medication refill] Plan of Care: Refill medications Initial ED EKG: none Departure Departure Disposition: HOME OR SELF CARE Condition: Stable Clinical Impression Primary Impression: Medication refill Referrals: Vik LOZANO,Paulo Delaney (PCP/Family) Additional Instructions: FOLLOW UP WITH THE [facility] FOLLOW UP FOR ANY CONCERNS Departure Forms: Customer Survey General Discharge Information Prescriptions: Current Visit Scripts Olanzapine (Zyprexa) 1 TAB PO QPM #30 TAB Alprazolam (Xanax) 0.5 TAB PO BID PRN ANXIETY #20 TAB Critical Care Note Critical Care Note Critical Care Time: non-applicable
== END 2018-01-16 11:00 ==
LOC: ERH 10:44
DX: Z76.0 Encounter for issue of repeat prescription (principal)
CPT/HCPCS: 99281